=== PATIENT | male | born 1940 | race Caucasian/White ===

== ENCOUNTER 2021-12-25 14:45 | Outpatient (CLI) | payer MEDICARE, BC, SELFPAY | END 2021-12-25 14:46 | disposition home or self-care (01) | LOC: INJ CL 14:45 | PROVIDERS: PCP Family Medicine; Visit Provider Family Medicine | DX: M51.36 Other intervertebral disc degeneration, lumbar region; M54.16 Radiculopathy, lumbar region | CPT/HCPCS: 64483; J1100; Q9966 ==

== ENCOUNTER 2022-01-22 14:15 | Outpatient (RCR) | payer MEDICARE, BC, SELFPAY | END 2022-01-22 16:02 | disposition home or self-care (01) | PROVIDERS: PCP Family Medicine; Visit Provider Family Medicine | DX: M51.36 Other intervertebral disc degeneration, lumbar region (principal); Z51.89 Encounter for other specified aftercare | CPT/HCPCS: 97110; 97116; 97162; 97535 ==

== ENCOUNTER 2022-08-25 13:49 | Outpatient (CLI) | payer MEDICARE, BC, SELFPAY | END 2022-08-25 13:50 | disposition home or self-care (01) | LOC: AMB 08-26 13:19 | PROVIDERS: PCP Family Medicine; Visit Provider Family Medicine | DX: R41.82 Altered mental status, unspecified (principal) | CPT/HCPCS: A0425; A0429 ==

== ENCOUNTER 2022-08-25 14:10 | Inpatient (IN) | payer MEDICARE, BC, SELFPAY ==
[2022-08-25] VITALS (10 sets, daily range): BP systolic 143–181; BP diastolic 70–113; PULSE 50–92; RESP 16–20; TEMP 37.2–37.4; O2SAT 92–94; BMI 27.5; BMI 28.4
--- NOTE | 2022-08-25 14:22 | ED_ITS ---
HPI - Weakness General Time Seen by Provider: 14:23 Date Seen: 08/25/22 Chief complaint: Weakness Stated complaint: Ill Time Seen by Provider: 08/25/22 14:22 Source: patient, family, EMS and RN notes reviewed Mode of arrival: EMS Limitations: altered mental status (Sleepy and underlying dementia) History of Present Illness HPI Narrative: Patient is an 82-year-old male brought in by EMS from home where he is cared for by his . Patient has underlying dementia but has had a change in his status today. He ambulates with a cane or walker baseline, feels that he has been doing the walker more the last few days. He reportedly he did eat some yogurt and granola and couple water earlier. She was going to have him going to the kitchen in eat some toast and drink a cup of coffee, on the way there he plopped in this lower chair and did not make it into the kitchen. She went to get him the coffee there and he knocked it over. She noted he was seeming to have a lot of jerking movements in his arms. His daughter whom is present as well at this time notes that she has seen some of these movements before. The of noted no specific illness with him, daughter feels that he is less alert than he normally is. They feel he is resting comfortably, are not seen the jerking movements. When I was examining him, he had 1 myoclonic type jerk in his left forearm and this seems to be what is termite control representative of the movements seen. Patient was initially sleeping, does wake up. He does say hi to me. When ask if he has pain anywhere he states no. I specifically ask about things like headache, chest pain, back pain, breathing issues, abdominal pain, he declines all of this. He does baseline have dementia and is certainly falling asleep very easily, do question his ability to give me a true meaningful review of systems. They notes that he has been having some kidney issues with increased creatinine, his doctor has been following these labs every 3-4 months. Related Data Home Medications Medication Instructions Recorded Confirmed acetaminophen 500 mg capsule 500 mg PO Q6H PRN 08/20/22 08/20/22 donepezil 10 mg tablet 10 mg PO QDAY 08/20/22 08/20/22 gentamicin 0.3 % eye drops 1 drp ophthalmic (eye) Q4H 08/20/22 08/20/22 lisinopril 10 mg tablet 10 mg PO QDAY 08/20/22 08/20/22 melatonin 3 mg capsule 3 mg PO ONCE 08/20/22 08/20/22 memantine 10 mg tablet 10 mg PO QPM 08/20/22 08/20/22 potassium citrate 5 mEq (540 mg) 5 meq PO ONCE 08/20/22 08/20/22 tablet,extended release tamsulosin 0.4 mg capsule 0.4 mg PO QDAY 08/20/22 08/20/22 tumeric 100 mg-carl 150 mg-olive cap PO 08/20/22 08/20/22 50 mg-oreg 150 mg-caprylate capsule venlafaxine 37.5 mg 37.5 mg PO QDAY 08/20/22 08/20/22 capsule,extended release 24 hr Allergies Allergy/AdvReac Type Severity Reaction Status Date / Time No Known Drug Allergies Allergy Verified 08/25/22 14:23 Review of Systems Status of ROS: Reports: unobtainable due to medical condition PFSH PFS Social History Smoking Status: Former smoker How often do you have a drink containing alcohol: never AUDIT-C Alcohol total score: 0 Non-prescribed substance use: denies use Exam Const: Vital Signs, click to edit/add: Vital Signs - 24 hr 08/25/22 14:14 Temperature 99.3 F Pulse Rate [Pulse Oximeter] 50 L Respiratory Rate 18 Blood Pressure [Ri ght Upper Arm] 143/70 H Pulse Oximetry 93 Oxygen Delivery Me thod Room Air Documenting provider has reviewed patient's vital signs: yes Common normals: no apparent distress General appearance: comfortable, well kempt and frail appearing Nutritional appearance: thin Other: Wakes up briefly in is pleasant, is certainly arousable from his sleep. HENMT: Common normals: normocephalic, head/scalp atraumatic, hearing grossly normal bilaterally, external ears normal, external nose normal and nasal mucous membranes and turbinates normal Head and scalp: normocephalic and atraumatic Nose: external nose normal and nasal mucous membranes and turbinates normal External ear: external ears normal Other: Dry oral mucosa without any lesions or traumatic changes. Lips are not dry, looked normal. When he does speak to me, seems to have symmetrical facial function. Eye: Common normals: PERRL, EOMs intact bilaterally, conjunctivae normal and no scleral icterus Conjunctiva: conjunctiva(e) normal Pupil: PERRL Neck & C-Spine: Common normals: full ROM, no lymphadenopathy, supple, no meningeal signs, no JVD and thyroid normal Thyroid: thyroid normal Chest: Common normals: inspection of chest normal and palpation of chest normal Resp: Common normals: normal respiratory effort, no retractions, no use of accessory muscles and clear to auscultation bilaterally Auscultation: clear to auscultation bilaterally Cardio: Common normals: no JVD, regular rate, regular rhythm, S1 normal heart sound, S2 normal heart sound, no gallops, no clicks and no murmurs Rate: regular rate Rhythm: regular rhythm Heart sounds: S1 normal and S2 normal GI: Common normals: Normal to inspection, nondistended, normoactive bowel sounds present, soft to palpation, non-tender, no hepatosplenomegaly and no masses Palpation: soft and no hepatosplenomegaly Extremity: Other: Does have trace maybe 1+ pitting edema lower extremities, no overlying erythema or abnormal skin changes. On evaluation of his upper extremities, I do not get any cogwheeling or rigidity. He does seem to have symmetrical strength and will follow commands. When I lift his lower legs up, does not seem to have any pain and hold his leg in a upper position for few seconds before sending a back down. Neuro: Meningeal signs: no meningeal signs Psych: Appearance: well kempt Course Course Hospital Course: This is an 82-year-old male with underlying dementia which seems to have a change in his baseline mental status. He certainly does seem more sleepy, possible low-grade temperature of 99.3? F here. Infectious etiology would certainly be at the forefront of diagnostic possibilities. There is no known trauma and his does not feel he could never get himself up if he were to fall at home. We will do chest x-ray, head CT just to rule out any intracranial pathology as well as lung pathology on the chest x-ray. We will get a full complement of labs including blood cultures. We will be doing a 250 mL normal saline bolus, consider more fluids if we find infectious etiology. Reevaluation(s) Time of Reevaluation #1: 16:09 Reevaluation #1: Patient is providing small amount of urine at this time clean-catch. We will get that off for urinalysis. He is certainly more alert. Have reviewed the head CT with his , she is not aware that he has ever had a diagnosis of a subdural hematoma. She believes about 2 months ago he had an MRI of his head with his neurologist for his dementia. We will see if there is possibly anyway to do a comparison, have contacted Radiology. Have reviewed that his white count is elevated. Some of his labs are still pending. I still do wonder about infectious etiology. My recommendation is for observation in the hospital, see if we find any focus of infection, we can repeat a head CT and 6 hours. His does not believe that she would want him sent anywhere for evacuation of hematoma, any neuro surgery which I think is appropriate given his advanced dementia. She is wondering why x-rays have not been done to see why he can not walk. I have reviewed with her that this is likely more a function of being weak and probable infectious etiology. When I mobilize his lower extremities it does not seem to cause him any pain. I watch him bending his legs up and moving his legs with out any discomfort. I think it is reasonable to consider x-rays at some point if we can get more focused exam from him or get him to give us an isolated painful region. I have tried to stress to her that we often see people quit walking with advanced age in advanced medical processes when they have global weakness from an infectious etiology. Consultations Consultation #1: Have spoken with Dr. Pierce, he is aware the urinalysis is pending, discussed thoughts of repeating a head CT in 6 hours just to ensure no change. He will accept the patient. The C reactive protein did come back quite elevated at this time, urinalysis is just been collected. If that does not show any infectious etiology, he may have to consider CT imaging to look to see if there is anything possible in the chest or abdomen that we might be missing. Time: 16:12 Vital Signs Vital signs: Initial Vital Signs Temperature 99.3 F 08/25/22 14:14 Temperature Source Temporal Artery Scan 08/25/22 14:14 Pulse Rate 50 L 08/25/22 14:14 Respiratory Rate 18 08/25/22 14:14 Blood Pressure 143/70 H 08/25/22 14:14 Blood Pressure Mean 94 08/25/22 14:14 Blood Pressure Position Supine 08/25/22 14:14 Pulse Oximetry 93 08/25/22 14:14 Oxygen Delivery Method Room Air 08/25/22 14:14 Vital Signs Temperature 99.3 F 08/25/22 14:14 Pulse Rate 50 L 08/25/22 14:14 Respiratory Rate 18 08/25/22 14:14 Blood Pressure 143/70 H 08/25/22 14:14 Pulse Oximetry 93 08/25/22 14:14 Oxygen Delivery Method Room Air 08/25/22 14:14 Temperature 99.3 F 08/25/22 14:14 Pulse Rate 50 L 08/25/22 14:14 Respiratory Rate 18 08/25/22 14:14 Blood Pressure 143/70 H 08/25/22 14:14 Pulse Oximetry 93 08/25/22 14:14 Oxygen Delivery Method Room Air 08/25/22 14:14 MDM - Weakness Lab Data Attestation: I reviewed the patient's lab results. Labs: Lab Results 08/25/22 Range/Units 14:49 WBC 12.89 H (4.50-11.00) K/uL RBC 4.31 (4.30-5.90) m/uL Hgb 14.2 (13.5-17.5) gm/dL Hct 43.0 (37.0-53.0) % MCV 100 (80-100) fL MCH 33 (26-34) pg MCHC 33 (32-36) gm/dL RDW Coeff of [place] 12.5 (11.5-15.5) % Plt Count 197 (140-440) K/uL Neut % (Auto) 76.7 H (42.0-72.0) % Lymph % (Auto) 8.4 L (20-44) % [place] % (Auto) 13.6 H (0.0-11.0) % Eos % (Auto) 0.7 (0.0-7.0) % Baso % (Auto) 0.1 (0.0-3.0) % Neut # (Auto) 9.90 H (1.7-7.0) K/uL Lymph # (Auto) 1.10 (0.90-2.90) K/uL [place] # (Auto) 1.80 H (0.00-0.90) K/UL Eos # (Auto) 0.10 (0.00-0.50) K/uL Baso # (Auto) 0.00 (0.00-0.30) K/uL Sodium 138 (135-149) mmol/L Potassium 4.1 (3.6-5.1) mmol/L Chloride 105 (96-114) mmol/L Carbon Dioxide 24 (20-32) mmol/L BUN 18 (7-30) mg/dL Creatinine 1.2 (0.5-1.5) mg/dL Estimated Creat Clear 48.81 Estimated GFR 60 ml/min Glucose 120 H (60-115) mg/dL Lactate 1.3 (0.5-1.9) mmol/L Calcium 9.9 (8.4-10.6) mg/dL Total Bilirubin 0.6 (0.1-1.5) mg/dL AST 33 (12-35) U/L ALT 23 (4-50) U/L Alkaline Phosphatase 56 (40-150) U/L C-Reactive Protein 18.7 H (0.5-1.0) mg/dL NT-Pro-B Natriuret Pep 600 pg/mL Total Protein 7.5 (6.0-8.3) g/dL Albumin 4.3 (3.3-5.0) g/dL SARS-CoV-2 (PCR) Negative SARS-CoV-2 (Negative) POC Troponin I 0.01 (0.01-0.04) ng/ml Imaging Data CT scan - head: Attestation: I have reviewed the pertinent imaging results. Radiologist's impression: Patient: PA NICOLE Facility:?[facility] Patient ID:?[id number] Study:?CT Head W/O-08/25/2022 3:25:52 PM Ordering Physician:?Attila Moreno Final Report: Indication: Altered mental status, weakness Comparison: None available Technique: Multiple sequential axial images from the foramen magnum to the vertex were obtained without IV contrast. Findings: Probable tiny subdural hematoma, with a chronic appearance measuring 3 mm seen over the right frontal lobe on image 33, series 2. No significant mass effect or midline shift. Mild diffuse atrophy. Patchy periventricular and deep white matter areas of hypoattenuation, nonspecific the most likely small vessel ischemic change. Intracranial vascular calcifications. Basal cisterns are patent. No intraventricular or parenchymal hemorrhage. Visualized portions of the orbits, paranasal sinuses, and mastoid air cells are unremarkable. Impression: Probable tiny subdural hematoma with a more chronic appearance over the right frontal lobe. Please note that all CT scans at this facility use dose modulation, iterative reconstruction, and/or weight-based dosing when appropriate to reduce radiation dose to as low as reasonably achievable. Dictated by Daniel Justice MD @ 08/25/2022 3:44:27 PM (Electronic Signature) Chest x-ray: Attestation: I have reviewed the pertinent imaging results. Radiologist's impression: Patient: PA [facility] Facility:?[facility] Patient ID:?[id number] Site Patient ID:?[id number]. Site :?[id number] Study:?XRay Chest AP 1V-08/25/2022 3:26:43 PM Ordering Physician:?Attila Moreno Final Report: INDICATION: AMS TECHNIQUE: Single view chest. FINDINGS: The lungs are clear. The heart, mediastinum and pulmonary vessels are of normal size. There is no evidence of pleural disease. IMPRESSION: Negative chest. Dictated by Yu Suarez MD @ 08/25/2022 3:44:33 PM (Electronic Signature) ECG Data Attestation: I personally reviewed and interpreted this ECG as follows: (Bradycardic rhythm, 51 beats per minute. Right bundle branch block. Monitors calling unusual P-wave axis, possible ectopic atrial bradycardia. Note patient is maintaining good blood pressure.) ECG interpretation date: 08/25/22 ECG interpretation time: 15:48 Prior ECG tracings: not available for review Critical Care Time Critical Care Time Critical Care Time: No Discharge Plan Discharge Clinical Impression: Chronic subdural hematoma, Dementia, Weakness Patient Disposition: Admitted As Inpatient Condition: Unchanged
--- NOTE | 2022-08-25 14:32 | CRLHL7_ITS ---
For Patients: As a result of the Century Cures Act, medical imaging exams and procedure reports are released immediately into your electronic medical record. You may view this report before your referring provider. If you have questions, please contact your health care provider. INDICATION: AMS TECHNIQUE: Single view chest. FINDINGS: The lungs are clear. The heart, mediastinum and pulmonary vessels are of normal size. There is no evidence of pleural disease. IMPRESSION: Negative chest. Dictated by Yu Suarez MD @ 08/25/2022 3:44:33 PM (Electronically Signed)
--- NOTE | 2022-08-25 14:34 | CRLHL7_ITS ---
For Patients: As a result of the Cures Act, medical imaging exams and procedure reports are released immediately into your electronic medical record. You may view this report before your referring provider. If you have questions, please contact your health care provider. Indication: Altered mental status, weakness Comparison: None available Technique: Multiple sequential axial images from the foramen magnum to the vertex were obtained without IV contrast. Findings: Probable tiny subdural hematoma, with a chronic appearance measuring 3 mm seen over the right frontal lobe on image 33, series 2. No significant mass effect or midline shift. Mild diffuse atrophy. Patchy periventricular and deep white matter areas of hypoattenuation, nonspecific the most likely small vessel ischemic change. Intracranial vascular calcifications. Basal cisterns are patent. No intraventricular or parenchymal hemorrhage. Visualized portions of the orbits, paranasal sinuses, and mastoid air cells are unremarkable. Impression: Probable tiny subdural hematoma with a more chronic appearance over the right frontal lobe. Please note that all CT scans at this facility use dose modulation, iterative reconstruction, and/or weight-based dosing when appropriate to reduce radiation dose to as low as reasonably achievable. Dictated by Daniel Justice MD @ 08/25/2022 3:44:27 PM (Electronically Signed)
[2022-08-25 15:04] LABS: Lactate* 1.3 mmol/L (0.5-1.9)
[2022-08-25 15:05] LABS: Troponin, Point-of-Care* 0.01 ng/ml (0.01-0.04)
[2022-08-25 15:09] LABS: Basophils Percent Auto 0.1 % (0.0-3.0); Eosinophils Percent Auto 0.7 % (0.0-7.0); Hemoglobin* 14.2 gm/dL (13.5-17.5); Immature Granulocytes Pct Auto 0.5 %; Lymphocytes Percent Auto 8.4 % (20-44); Mean Corpuscular HGB Conc 33 gm/dL (32-36); Mean Corpuscular Hemoglobin 33 pg (26-34); Mean Corpuscular Volume 100 fL (80-100); Monocytes Percent Auto 13.6 % (0.0-11.0); Neutrophils Percent Auto 76.7 % (42.0-72.0); Platelet Count* 197 K/uL (140-440); RDW Coefficient of Variation % 12.5 % (11.5-15.5); Red Blood Count 4.31 m/uL (4.30-5.90); White Blood Count* 12.89 K/uL (4.50-11.00)
[2022-08-25 15:17] LABS: Slide Review Reflex No
[2022-08-25 15:41] LABS: NT Pro B Type NatriureticPept* 600 pg/mL
[2022-08-25 15:42] LABS: Albumin* 4.3 g/dL (3.3-5.0); Chloride* 105 mmol/L (96-114); Sodium* 138 mmol/L (135-149)
[2022-08-25 15:43] LABS: Potassium* 4.1 mmol/L (3.6-5.1)
[2022-08-25 15:45] LABS: Carbon Dioxide* 24 mmol/L (20-32); Creatinine* 1.2 mg/dL (0.5-1.5); Est. Creatinine Clearance* 48.81; Estimated Glomerular Filt Rate 60 ml/min
[2022-08-25 15:46] LABS: Alanine Aminotransferase* 23 U/L (4-50); Alkaline Phosphatase* 56 U/L (40-150); Aspartate Amino Transferase* 33 U/L (12-35); Bilirubin Total* 0.6 mg/dL (0.1-1.5); Blood Urea Nitrogen* 18 mg/dL (7-30); Calcium* 9.9 mg/dL (8.4-10.6); Glucose* 120 mg/dL (60-115); SARS PCR* Negative SARS-CoV-2 (Negative); Total Protein* 7.5 g/dL (6.0-8.3)
[2022-08-25 16:02] LABS: C Reactive Protein* 18.7 mg/dL (0.5-1.0)
[2022-08-25 16:16] LABS: Appearance Urine Clear (Clear); Bilirubin Urine 1+ (Negative); Blood Urine Trace-intact (Negative); Color Urine Dark yellow (Yellow); Glucose Urine Negative (Negative); Ketones Urine 1+ (Negative); Leukocyte Esterase Urine Trace (Negative); Nitrite Urine Negative (Negative); Protein Urine 2+ (Negative); Specific Gravity Urine 1.025 (1.000-1.030); Urobilinogen Urine 0.2 (0.2-1.0)
[2022-08-25 16:26] LABS: Bacteria Urine Moderate; Squamous Epithelial Cell Urine Few (None-Few)
--- NOTE | 2022-08-25 16:36 | P.IMHP_ITS ---
Hospitalist- H&P: HPI History of Present Illness Date Seen: 08/25/22 Chief complaint: Ill Narrative: Rene Perez is a 82 year old male with past medical history of alzheimer's dementia, HTN, BPH, Depression presenting for evaluation of generalized weakness. The patient unable to provide meaningful hx. Hx obtained from his (who is also a poor historian) and his daughter (who is WELDING MACHINE TENDER). He has had progressive general decline over the last two months. He lives with his . She is unsure if he has had any falls and has not complained of headaches. Per report he had a fall while walking to the kitchen, he slid fell to the floor. did not witness. He uses walker for ambulation. He has had progressive weakness and family notes intermittent upper extremity clonic movements/jerks. In the ED CT head showed Probable tiny subdural hematoma with a more chronic appearance over the right frontal lobe. WBC 12.8; UA positive for leukocyte esterase. In the Ed the patient had temp of 99.3. He was admitted for further evaluation CT HEAD Impression: Probable tiny subdural hematoma with a more chronic appearance over the right frontal lobe. cxr Negative chest. Review of Systems Status of ROS: Reports: unobtainable due to mental status PFSH PFS Social History What is your current living situation: I presently have a place to live Problems where you live: no known problems Problems where you live details: none In the past 12 months, utilities in danger of being shut off: no In the past 12 mos, have been you worried that your food would run out before you had money to buy more?: never true In the past 12 mos, the food you bought just didn't last and you didn't have m oney to buy more?: never true Smoking Status: Former smoker What tobacco products do you use: cigarettes Smoking quit date/years: >15 years ago Do you use any of these nicotine containing products: None Second hand tobacco smoke exposure: No How often do you have a drink containing alcohol: 2-4 times a month Alcohol type: wine Alcohol type details: glass of wine with dinner How many standard drinks containing alcohol do you have on a typical day: 1 or 2 AUDIT-C Alcohol total score: 2 Non-prescribed substance use: denies use Caffeine: Yes How often does anyone, including family, friends and others, physically hurt you : How often does anyone, including family, friends and others, insult or talk down to you: How often does anyone, including family, friends and others, threaten you with harm: How often does anyone, including family, friends and others, scream or curse at you: service: No Meds Home Medications and Allergies Home Medications Medication Instructions Recorded Confirmed Type acetaminophen 500 mg capsule 500 mg PO Q6H PRN 08/20/22 08/20/22 History donepezil 10 mg tablet 10 mg PO QDAY 08/20/22 08/20/22 History gentamicin 0.3 % eye drops 1 drp ophthalmic (eye) Q4H 08/20/22 08/20/22 History lisinopril 10 mg tablet 10 mg PO QDAY 08/20/22 08/20/22 History melatonin 3 mg capsule 3 mg PO ONCE 08/20/22 08/20/22 History memantine 10 mg tablet 10 mg PO QPM 08/20/22 08/20/22 History potassium citrate 5 mEq (540 mg) 5 meq PO ONCE 08/20/22 08/20/22 History tablet,extended release tamsulosin 0.4 mg capsule 0.4 mg PO QDAY 08/20/22 08/20/22 History tumeric 100 mg-carl 150 mg-olive cap PO 08/20/22 08/20/22 History 50 mg-oreg 150 mg-caprylate capsule venlafaxine 37.5 mg 37.5 mg PO QDAY 08/20/22 08/20/22 History capsule,extended release 24 hr Allergies Allergy/AdvReac Type Severity Reaction Status Date / Time No Known Drug Allergies Allergy Verified 08/25/22 14:23 Exam Narrative: Exam Narrative: Gen: no acute distress HEENT: NCAT EOMI mmm Neck: Supple CV: RRR normal s1 s2 Lungs: CTAB Abd: Soft,nt, nd Neuro: Alert, orientedXo; moves extremities; able to follow commands Psych: flat affect MSK: age appropriate muscle mass Skin; Warm, dry no rash on face Const: Vital Signs, click to edit/add: Vital Signs - 24 hr 08/25/22 14:14 08/25/22 15:13 08/25/22 15:32 Temperature 99.3 F Pulse Rate 52 L Pulse Rate [Pulse Oximeter] 50 L Respiratory Rate 18 Blood Pressure 158/77 H Blood Pressure [Ri ght Upper Arm] 143/70 H Pulse Oximetry 93 94 Oxygen Delivery Me thod Room Air 08/25/22 15:38 08/25/22 16:02 08/25/22 16:32 Temperature Pulse Rate 58 L Pulse Rate [Pulse Oximeter] Respiratory Rate Blood Pressure 181/113 H 160/86 H Blood Pressure [Ri ght Upper Arm] Pulse Oximetry 92 Oxygen Delivery Me thod Hospitalist - H&P: Result Labs Labs: Short CBC 08/25/22 Range/Units 14:49 WBC 12.89 H (4.50-11.00) K/uL Hgb 14.2 (13.5-17.5) gm/dL Hct 43.0 (37.0-53.0) % Plt Count 197 (140-440) K/uL BMP 08/25/22 14:49 Sodium 138 Potassium 4.1 Chloride 105 Carbon Dioxide 24 BUN 18 Creatinine 1.2 Glucose 120 H Calcium 9.9 Liver Function 08/25/22 Range/Units 14:49 Total Bilirubin 0.6 (0.1-1.5) mg/dL AST 33 (12-35) U/L ALT 23 (4-50) U/L Alkaline Phosphatase 56 (40-150) U/L Albumin 4.3 (3.3-5.0) g/dL Urine 08/25/22 Range/Units 16:05 Urine Color Dark yellow (Yellow) Urine Appearance Clear (Clear) Urine pH 6.0 (5.0-8.5) Ur Specific [place] 1.025 (1.000-1.030) Urine Protein 2+ A (Negative) Urine Glucose (UA) Negative (Negative) Assessment and Plan Assessment and plan (1) UTI (urinary tract infection): Status: Acute (2) Hypertension: Status: Acute (3) Chronic subdural hematoma: Status: Acute (4) Depression: Status: Acute (5) BPH (benign prostatic hyperplasia): Status: Acute (6) Weakness: Status: Acute (7) Dementia: Status: Acute Plan Assessment: Rene Perez is a 82 year old male with past medical history of alzheimer's dementia, HTN, BPH, Depression presenting for evaluation of generalized weakness. The patient unable to provide meaningful hx. Hx obtained from his (who is also a poor historian) and his daughter (who is WELDING MACHINE TENDER). He has had progressive general decline over the last two months. He lives with his . Per report he had a fall while walking to the kitchen, he slid fell to the floor. did not witness. He uses walker for ambulation. He has had progressive weakness and family notes intermittent upper extremity clonic movements/jerks. In the ED CT head showed Probable tiny subdural hematoma with a more chronic appearance over the right frontal lobe. WBC 12.8; UA positive for leukocyte esterase. In the Ed the patient had temp of 99.3. He was admitted for further evaluation 1. Generalized weakness likely secondary to UTI 2. Hx of Alzheimer's Dementia 3. Hx of HTN 4. Hx of BPH 5. Hx of Depression 6. Suspected tiny subdural hematoma presumed chronic Plan -admit to inpatient -start ceftriaxone -f/u Ucx -Pt, OT, SW consult -repeat CT head tonight -fall precautions Code Status-After lengthy discussion with , DNR/DNI for now DVT ppx-SCD Dispo-Anticipate he will need SNF
--- NOTE | 2022-08-25 16:44 | ED.NURSE ---
report given to marky tay, pt will transfer to room ccu2 via cart with belongings.
[2022-08-25 17:16] LABS: Procalcitonin* 0.09 ng/mL (<0.50)
[2022-08-25] MEDS: cefTRIAXone 1 GM in 0.9 % SODIUM CHLORIDE Mini-bag 100 ML IVPB (17:22)
[2022-08-25] MEDS: MEMANTINE HCL 10 MG TABLET PO (18:32)
[2022-08-25] MEDS: 0.9 % SODIUM CHLORIDE 250 ml IV (18:32)
--- NOTE | 2022-08-25 20:00 | CRLHL7_ITS ---
For Patients: As a result of the Century Cures Act, medical imaging exams and procedure reports are released immediately into your electronic medical record. You may view this report before your referring provider. If you have questions, please contact your health care provider. INDICATION: Altered mental status weakness. TECHNIQUE: CT head without contrast. COMPARISON: September 24, 2022. FINDINGS: CSF spaces: Mild diffuse parenchymal volume loss. Brain parenchyma and extra-axial spaces: Similar asymmetric prominent extra-axial space over the right frontal convexity. Mild chronic white matter ischemic disease. The power-white differentiation is normal. No sign of mass, hemorrhage, or midline shift. No extra-axial fluid collection. Skull base and calvarium: The visualized paranasal sinuses and mastoid air cells demonstrate no acute or significant findings. The visualized orbits are grossly unremarkable. No skull fractures. IMPRESSION: No significant interval change compared to prior CT. Please note that all CT scans at this facility use dose modulation, iterative reconstruction, and/or weight-based dosing when appropriate to reduce radiation dose to as low as reasonably achievable. Dictated by Reji Martínez MD @ 08/25/2022 9:22:58 PM (Electronically Signed)
[2022-08-25] MEDS: ACETAMINOPHEN 325 MG TABLET 650 MG PO (23:06)
[2022-08-25] MEDS: MELATONIN 3 MG TABLET PO (23:06)
[2022-08-25] MEDS: SODIUM CHLORIDE 0.9 % (FLUSH) 10 ML SYRINGE 5 ML IVF (23:06)
[2022-08-26] VITALS (7 sets, daily range): BP systolic 117–155; BP diastolic 65–81; PULSE 65–74; RESP 16–20; TEMP 36.7–37.1; O2SAT 92–95
--- NOTE | 2022-08-26 06:13 | PC.NURSE ---
Shift note: Pt is disoriented to his surroundings, however pleasant and cooperative. He is able to swallow pills with some coaching. He needs assistance with meals as pt unable to control his hands. Speech is mumbled, unable to keep conversation and/or answer questions. Pt ambulates with assists of 1-2, belt wand walker, requires frequent redirections. He is incontinent, no BM overnight.
[2022-08-26 06:43] LABS: Basophils Percent Auto 0.2 % (0.0-3.0); Eosinophils Percent Auto 0.9 % (0.0-7.0); Hematocrit 40.3 % (37.0-53.0); Hemoglobin* 13.2 gm/dL (13.5-17.5); Immature Granulocytes Pct Auto 0.4 %; Lymphocytes Percent Auto 11.6 % (20-44); Mean Corpuscular HGB Conc 33 gm/dL (32-36); Mean Corpuscular Hemoglobin 32 pg (26-34); Mean Corpuscular Volume 99 fL (80-100); Monocytes Percent Auto 15.8 % (0.0-11.0); Neutrophils Percent Auto 71.1 % (42.0-72.0); Platelet Count* 204 K/uL (140-440); RDW Coefficient of Variation % 12.3 % (11.5-15.5); Red Blood Count 4.07 m/uL (4.30-5.90)
[2022-08-26 06:49] LABS: Slide Review Reflex No
[2022-08-26 06:57] LABS: Chloride* 107 mmol/L (96-114); Potassium* 3.7 mmol/L (3.6-5.1); Sodium* 138 mmol/L (135-149)
[2022-08-26 07:00] LABS: Blood Urea Nitrogen* 17 mg/dL (7-30); Carbon Dioxide* 23 mmol/L (20-32); Creatinine* 1.2 mg/dL (0.5-1.5); Est. Creatinine Clearance* 48.81; Estimated Glomerular Filt Rate 60 ml/min
[2022-08-26 07:01] LABS: Calcium* 9.6 mg/dL (8.4-10.6); Glucose* 115 mg/dL (60-115)
[2022-08-26] MEDS: SODIUM CHLORIDE 0.9 % (FLUSH) 10 ML SYRINGE 5 ML IVF ×2 (09:18→21:51)
--- NOTE | 2022-08-26 10:55 | CRLHL7_ITS ---
For Patients: As a result of the Cures Act, medical imaging exams and procedure reports are released immediately into your electronic medical record. You may view this report before your referring provider. If you have questions, please contact your health care provider. INDICATION: expiratory wheeze in RUL TECHNIQUE: Chest 1 view COMPARISON: 08/25/2022 FINDINGS: Cardiovascular and mediastinum: Tortuosity of the descending thoracic aorta. Cardiac silhouette is upper limits normal. Lungs and pleural spaces: Mild areas of scarring noted. No sign of infiltrate or mass. No sign of pleural effusion. No pneumothorax. Bones and soft tissues: Degenerative changes at both shoulders. IMPRESSION: No acute findings. Dictated by Ibrahima Felix MD @ 08/26/2022 11:32:33 AM (Electronically Signed)
--- NOTE | 2022-08-26 13:54 | PC.SOCIAL ---
Discharge planning: Met with regarding d/c plan. is caregiver at home where they live in [facility]. shared that she plans to take him home at discharge but she will consider a short term rehab placement at the [facility] if needed. states she has considered hiring home management supervisor care to provide some assistance at home as she provides 24/7 care by herself. Provided with written resources on [place] [facility], home management supervisor care and assisted living memory care. Called [facility] and faxed information for evaluation for admit for short term rehab. textile worker to follow up as needed.
--- NOTE | 2022-08-26 14:37 | PC.NURSE ---
end of shift. pt has been pleasant. but sadly he has dementia. he is alert to self. he does listen to staff directions and he is cooperative. he is eating and drinking. he is incontinent of urine, but he is content of BM. he is able to feed him self, his is here and she is very loving and caring. Speech is mumbled, hard for him to find words at times. he does not like loud voices. . Pt ambulates with assists of 1, with a gait belt wand walker. SL is patent. he is a fall risk and alarms are on.
--- NOTE | 2022-08-26 15:40 | PM.IMPN1 ---
Progress Note: A&P Assessment and plan (1) UTI (urinary tract infection): Problem details: Continue ceftriaxone. Await urine culture. Status: Acute (2) Metabolic encephalopathy: Problem details: No further workup. Status: Acute (3) Dementia: Status: Chronic (4) Weakness: Problem details: PT and OT as able, suspect patient will need fdc facility for rehab Status: Acute (5) BPH (benign prostatic hyperplasia): Problem details: Continue home meds. Status: Chronic (6) Hypertension: Problem details: Continue home meds Status: Chronic (7) Chronic subdural hematoma: Problem details: Repeat CT head yesterday was stable. No further w/u or treatment needed. Avoid anticoagulation. Status: Acute Subjective Time Seen by Provider: 10:46 Date Seen: 08/26/22 Interval history: Karlo is sleepy today. His is in the room and tells me he is better at times, and then gets sleepy again. Exam Narrative: Exam Narrative: General: No acute distress. Sleepy, arousable, mostly keeps eyes closed, oriented to self. No pallor. No jaundice. Oropharynx: Clear. Mucous membranes moist. Cardiovascular: Regular rate and rhythm. No murmurs, gallops, or rubs. Respiratory: Expiratory wheeze in the right upper lung field, no crackles. Abdomen: Bowel sounds present. Soft, nondistended, nontender. Extremities: 1+ bilateral pretibial edema. Const: Vital Signs, click to edit/add: Vital Signs - 24 hr 08/25/22 16:02 08/25/22 16:32 08/25/22 17:00 Temperature 98.9 F Pulse Rate [Pulse Oximeter] 92 Respiratory Rate 16 Blood Pressure 181/113 H 160/86 H Blood Pressure [Ri ght Arm] 157/80 H Pulse Oximetry 92 Oxygen Delivery Me thod Room Air 08/25/22 17:01 08/25/22 19:00 08/25/22 23:00 Temperature 99.1 F Pulse Rate [Pulse Oximeter] 77 77 Respiratory Rate 20 20 Blood Pressure Blood Pressure [Ri ght Arm] 149/80 H Pulse Oximetry 92 94 Oxygen Delivery Me thod Room Air 08/25/22 23:00 08/26/22 03:00 08/26/22 08:37 Temperature 99.3 F 98.4 F 98.1 F Pulse Rate [Pulse Oximeter] 78 74 72 Respiratory Rate 20 18 18 Blood Pressure Blood Pressure [Ri ght Arm] 154/79 H 128/69 Pulse Oximetry 94 95 94 Oxygen Delivery Me thod Room Air Room Air Room Air 08/26/22 08:38 08/26/22 11:00 Temperature 98.2 F Pulse Rate [Pulse Oximeter] 72 70 Respiratory Rate 18 18 Blood Pressure Blood Pressure [[facility] Arm] 117/65 Pulse Oximetry 92 Oxygen Delivery Mn thod Room Air Labs Labs: Laboratory Results - last 24 hr 08/25/22 08/25/22 08/25/22 14:49 16:05 16:39 WBC RBC Hgb Hct MCV MCH MCHC RDW Coeff of Moira Plt Count Neut % (Auto) Lymph % (Auto) [place] % (Auto) Eos % (Auto) Baso % (Auto) Neut # (Auto) Lymph # (Auto) [place] # (Auto) Eos # (Auto) Baso # (Auto) Sodium 138 Potassium 4.1 Chloride 105 Carbon Dioxide 24 BUN 18 Creatinine 1.2 Estimated Creat Clear 48.81 Estimated GFR 60 Glucose 120 H Calcium 9.9 Total Bilirubin 0.6 AST 33 ALT 23 Alkaline Phosphatase 56 C-Reactive Protein 18.7 H NT-Pro-B Natriuret Pep 600 Total Protein 7.5 Albumin 4.3 Procalcitonin 0.09 Urine Color Dark yellow Urine Appearance Clear Urine pH 6.0 Ur Specific Nursery 1.025 Urine Protein 2+ A Urine Glucose (UA) Negative Urine Ketones 1+ A Urine Blood Trace-intact A Urine Nitrite Negative Urine Bilirubin 1+ A Urine Urobilinogen 0.2 Ur Leukocyte Esterase Trace A Urine RBC 2-5 A Urine WBC 10-25 A Ur Squamous Epith Cells Few Urine Bacteria Moderate A SARS-CoV-2 (PCR) Negative SARS-CoV-2 Lab Acknowledgement Test Added 08/26/22 05:57 WBC 11.30 H RBC 4.07 L Hgb 13.2 L Hct 40.3 MCV 99 MCH 32 MCHC 33 RDW Coeff of Moira 12.3 Plt Count 204 Neut % (Auto) 71.1 Lymph % (Auto) 11.6 L [place] % (Auto) 15.8 H Eos % (Auto) 0.9 Baso % (Auto) 0.2 Neut # (Auto) 8.00 H Lymph # (Auto) 1.30 [place] # (Auto) 1.80 H Eos # (Auto) 0.10 Baso # (Auto) 0.00 Sodium 138 Potassium 3.7 Chloride 107 Carbon Dioxide 23 BUN 17 Creatinine 1.2 Estimated Creat Clear 48.81 Estimated GFR 60 Glucose 115 Calcium 9.6 Total Bilirubin AST ALT Alkaline Phosphatase C-Reactive Protein NT-Pro-B Natriuret Pep Total Protein Albumin Procalcitonin Urine Color Urine Appearance Urine pH Ur Specific Nursery Urine Protein Urine Glucose (UA) Urine Ketones Urine Blood Urine Nitrite Urine Bilirubin Urine Urobilinogen Ur Leukocyte Esterase Urine RBC Urine WBC Ur Squamous Epith Cells Urine Bacteria SARS-CoV-2 (PCR) Lab Acknowledgement Ordering Physician: Rachael Reyes M.D. Date of Service: 08/26/22 Procedure(s): XR chest 1V portable Accession Number(s): [id number] cc: Rachael Reyes M.D.; Blas Mckenna D.O.~ For Patients: As a result of the Cures Act, medical imaging exams and procedure reports are released immediately into your electronic medical record. You may view this report before your referring provider. If you have questions, please contact your health care provider. INDICATION: expiratory wheeze in RUL TECHNIQUE: Chest 1 view COMPARISON: 08/25/2022 FINDINGS: Cardiovascular and mediastinum: Tortuosity of the descending thoracic aorta. Cardiac silhouette is upper limits normal. Lungs and pleural spaces: Mild areas of scarring noted. No sign of infiltrate or mass. No sign of pleural effusion. No pneumothorax. Bones and soft tissues: Degenerative changes at both shoulders. IMPRESSION: No acute findings. Dictated by Ibrahima Felix MD @ 08/26/2022 11:32:33 AM (Electronically Signed)
[2022-08-26] MEDS: cefTRIAXone 1 GM in 0.9 % SODIUM CHLORIDE Mini-bag 100 ML IVPB (17:34)
[2022-08-26] MEDS: ACETAMINOPHEN 325 MG TABLET 650 MG PO (20:08)
[2022-08-26] MEDS: TAMSULOSIN HCL 0.4 MG CAPSULE PO (20:09)
[2022-08-26] MEDS: VENLAFAXINE HCL ER 37.5 MG CAPSULE PO (21:43)
[2022-08-26] MEDS: SENNOSIDES 1 TAB TABLET PO (21:43)
[2022-08-26] MEDS: oxyBUTYnin chloride 5 MG TABLET 2.5 MG PO (21:44)
[2022-08-26] MEDS: MEMANTINE HCL 10 MG TABLET PO (21:46)
[2022-08-26] MEDS: DONEPEZIL 10 MG TABLET PO (21:50)
--- NOTE | 2022-08-26 22:34 | PC.NURSE ---
End of shift nursing note, care provided from [id number]: Pt alert to self only, can state full name and to automatic typewriter inspector. Amb in hallway x2 this evening w/ walker, gaitbelt and Ax1. at bedside, helpful in patient cares and pt reorientation PRN. Pt took scheduled meds whole with water, one at a time, took meds on pt's normal home routine time. Pt tolerated dinner, drinking PO fluids. Received scheduled IV abx to patent IV, flushed again before bed, saline locked. PRN Tylenol for reported chronic aches and pains. Pt pleasant. sleeping at bedside again this evening. x1 BM this afternoon, brief changed for incontinent urine PRN. Vitals stable, on RA. Call light within reach and bed alarm on for safety promotion.
[2022-08-27 02:32] VITALS: BP 146/81; PULSE 77; RESP 18; TEMP 37.1; O2SAT 95
[2022-08-27] MEDS: ACETAMINOPHEN 325 MG TABLET 650 MG PO (02:40)
[2022-08-27] MEDS: MELATONIN 3 MG TABLET PO (04:27)
--- NOTE | 2022-08-27 06:09 | PC.NURSE ---
End of shift note from?[id number]. Pt alert to self, has trouble w/ word finding.?Cooperative and follows direction. VSS. A1 w/ walker and gait belt. Inc of urine, brief changed PRN. PRN Tylenol given for reported back pain, pt appears to be resting comfortably after administration. Pt setting off bed alarm more frequently as the night went on, PRN melatonin given per family request.? sleeping at bedside.
[2022-08-27 07:00] VITALS: BP 141/72; PULSE 70; RESP 18; TEMP 36.9; O2SAT 93
[2022-08-27] MEDS: MULTIVITAMIN/MINERALS 1 TABLET 1 TAB PO (09:52)
[2022-08-27] MEDS: oxyBUTYnin chloride 5 MG TABLET 2.5 MG PO (09:53)
[2022-08-27] MEDS: SODIUM CHLORIDE 0.9 % (FLUSH) 10 ML SYRINGE 5 ML IVF (09:53)
[2022-08-27] MEDS: VENLAFAXINE HCL ER 37.5 MG CAPSULE PO (09:54)
[2022-08-27] MEDS: TRAMADOL HCL 50 MG TABLET PO (10:35)
--- NOTE | 2022-08-27 10:57 | P.DS_ITS ---
DS: Providers Provider Date Seen: 08/27/22 Date of admission: 08/25/22 16:56 Primary care physician: Mr. Dr. Hoover Admitting Clinician: Waldo Pierce MD Consults: 08/25/22 16:56 Consult to Physical Therapy [CONS] Routine Comment: Reason(s) for PT Consult:: Balance Assessment Any Restrictions?:: No Restrictions Consult to Glue Machine Operator [CONS] Routine Comment: Reason for Consult:: Discharge Planning Needs 08/25/22 16:58 Consult to Occupational Therapy [CONS] Routine Comment: Reason(s) for OT Consult:: Evaluate and Treat Any Restrictions?:: No Restrictions 08/27/22 10:53 Consult to Occupational Therapy [CONS] Routine Comment: Reason(s) for OT Consult:: ADLs Prior to Discharge Any Restrictions?:: No Restrictions Comment: Shower Attending Physician on discharge: Joselyn Garcia MD [facility] Date of Discharge: 08/27/22 DS: Diagnosis Discharge Diagnosis (1) UTI (urinary tract infection): Status: Acute Problem details: While his culture grew a nonspecific Gram-positive lin, the clinical picture is still consistent with acute cystitis. Will move up his dose of ceftriaxone to noon so he can discharge this afternoon. I will send him on Ceftin 300 mg b.i.d. for 5 days. Give him 1 week of total antibiotic coverage. (2) Metabolic encephalopathy: Status: Acute Problem details: Much improved. He was answering questions today eating his full breakfast tray. His feels like he is back to baseline. (3) Weakness: Status: Acute Problem details: Much improved. I would like OT to walk with him and have him shower before discharge to assure he steadiness to go straight home versus rehab. (4) Dementia: Status: Chronic Problem details: No changes in medications I did recommend that Rachael pursue a bedalarm mat and shower stool/commode for east of use. (5) Hypertension: Status: Chronic Problem details: No changes in medication (6) BPH (benign prostatic hyperplasia): Status: Chronic Problem details: No changes in medication (7) Depression: Status: Acute Problem details: No changes in medication (8) Chronic subdural hematoma: Status: Acute Problem details: CT stable. No further w/u or treatment needed. Avoid anticoagulation. DS: Summary Hospital Course Hospital Course: HOSPITALIST DISCHARGE SUMMARY ATTENDING PHYSICIAN: Joselyn Garcia MD FINAL DIAGNOSIS: Presumed UTI, negative culture but clinically consistent Dementia, moderate Alzheimer's type Weakness and encephalopathy, resolved HOSPITAL FOLLOWUP ISSUES: 1. Return to PCP for further management of chronic issues. 2. No referrals REFERRALS WHILE ADMITTED: Social work and OT REFERRALS AFTER DISCHARGE: None BRIEF HOSPITAL COURSE: Karlo is an 82-year-old male who lives with his . She manages his moderate dementia Alzheimer's subtype. She noted in the 1-2 days prior to admission increasing weakness, incontinence, confusion, tremor. He stopped eating. She called EMS on the day of admission and his initial workup in the ER was notable for a urine that had trace leukocyte esterase, ketones, 10-25 white blood cells and moderate bacteria. He had no squamous epithelial cells. Ultimately his culture grew greater than 100,000 mixed Gram-positive lin. However given his leukocytosis, clinical acute change, elevated inflammatory markers and paucity of other findings we feel this was still consistent with an acute cystitis. His symptoms resolved rapidly. He was treated with IV ceftriaxone x3 doses. On the day of discharge he was feeding himself, responding to questions and had walked outside his hospital room and down to the 1st sub station. He also showered without syncope or weakness. I had a long discussion with the @ his bedside about options and she felt strongly about taking him home and saying that he would continue to convalesce more rapidly in his own home environment. I concurred. SUBSTANTIVE NOTATIONS ON IMAGING, LAB, MICROBIOLOGY/PATHOLOGY STUDIES: mild leukocytosis, downtrending UA as described above neg CXR DISCHARGE MEDICATIONS: See Reconciled list - SIGNIFICANT CHANGES: no changes; adding ceftin 300mg BID for 5 days, 10 doses REVIEW OF SYSTEMS No new chest pain or dyspnea Pain controlled No voiding difficulties Tolerating diet challenge PHYSICAL EXAM: CONSTITUTIONAL: flat affect. doesn't engage in conversation but responds to q uestions. VITAL SIGNS: see record. HEENT: Normocephalic, atraumatic. PERRL, EOMI, conjunctivae pink, no scleral icterus. Ears and nose externally normal. Pharynx normal. NECK: No JVD. No carotid bruit, no thyromegaly, no adenopathy. CHEST: Clear to auscultation bilaterally. HEART: S1 and S2 normal. Edema minimal ABDOMEN: Soft, nontender. Normal bowel sounds. MUSCULOSKELETAL: No gross joint deformity or swelling. NEURO: Cranial nerves intact. Grossly intact. No asymmetric findings. SKIN: No rashes, petechiae, concerning changes PSYCHIATRIC: Mood euthymic. DISPOSITION: Home with Time spent on discharge 37 minutes. Status at Discharge Functional status at discharge: uses cane/walker Overall status at discharge: patient is progressing back to baseline Time Spent with Patient Time attestation: Total time spent providing and/or coordinating discharge services: Time spent: Greater than 30 minutes Exam Const: Vital Signs, click to edit/add: Vital Signs - 24 hr 08/26/22 11:00 08/26/22 15:50 08/26/22 15:50 Temperature 98.2 F 98.2 F Pulse Rate [Pulse Oximeter] 70 65 65 Respiratory Rate 18 18 18 Blood Pressure [Le ft Arm] 124/72 Blood Pressure [Ri ght Arm] 117/65 Pulse Oximetry 92 94 Oxygen Delivery Me thod Room Air Room Air 08/26/22 19:25 08/26/22 23:45 08/27/22 02:32 Temperature 98.7 F 98.8 F 98.7 F Pulse Rate [Pulse Oximeter] 70 71 77 Respiratory Rate 16 20 18 Blood Pressure [Le ft Arm] 155/81 H 133/66 146/81 H Blood Pressure [Ri ght Arm] Pulse Oximetry 92 92 95 Oxygen Delivery Me thod Room Air Room Air Room Air DS: Data Data Completed and Pending Labs on day of discharge: Preliminary micro results at discharge 08/25/22 15:35 Blood Culture - Preliminary Blood NO GROWTH AFTER 24 HOURS 08/25/22 14:49 Blood Culture - Preliminary Blood NO GROWTH AFTER 24 HOURS 08/25/22 Unknown Urine Culture - Preliminary Urine,Clean Catch > 100,000 COL/ML MIXED GRAM POSITIVE LIN ISOLATED NO FURTHER WORKUP Discharge Plan Discharge Disposition: Home w/ Parent or Adult Date of Admission: 08/25/22 16:56 Attending Provider on Discharge: Joselyn Garcia Primary Care Provider: Blas Mckenna Condition: Improved Anticipated Discharge Date/Time: 08/27/22 10:47 Discharge Medications: New cefdinir 300 mg capsule 300 mg PO BID Qty: 10 0RF Continued tamsulosin 0.4 mg capsule 0.4 mg PO DAILY@1300 memantine 10 mg tablet 10 mg PO BID venlafaxine 37.5 mg capsule,extended release 24hr 37.5 mg PO DAILY donepezil 10 mg tablet 10 mg PO HS acetaminophen 500 mg capsule 1,000 mg PO TID melatonin 5 mg tablet 5 mg PO QHS potassium citrate 99 mg capsule 99 mg PO BID amlodipine 2.5 mg tablet 2.5 mg PO DAILY oxybutynin chloride 5 mg tablet 2.5 mg PO BID tramadol 50 mg tablet 25 - 50 mg PO 3XD PRN Fish Oil 1,600-500-800 mg/5 mL liquid 5 ml PO DAILY multivitamin [Daily Multi-Vitamin] Tablet 1 tab PO DAILY sennosides [Patti-jose] 8.6 mg tablet 8.6 mg PO QHS cholecalciferol (vitamin D3) 50 mcg (2,000 unit) capsule 50 mcg PO DAILY Methylcobalamin 1,000 mcg 1,000 mcg PO DAILY grape seed extract 50 mg capsule 50 mg PO DAILY Rx Instructions: give with food (meal/snack) Patient Education: Cefdinir (By mouth) Activity Level: Activity as Tolerated Discharge Diet: Regular Follow Up Appointments: RIMMA KINCAID DO [Referring] - 09/10/22 Forms: [facility] Info Instructions
--- NOTE | 2022-08-27 11:28 | PC.SOCIAL ---
Pt. will discharge home today with spouse providing 07/10 care.
[2022-08-27] MEDS: cefTRIAXone 1 GM in 0.9 % SODIUM CHLORIDE Mini-bag 100 ML IVPB (13:48)
[2022-08-27 15:00] VITALS: BP 116/70; PULSE 55; RESP 18; TEMP 36.8
--- NOTE | 2022-08-27 16:32 | PC.NURSE ---
Nursing Care Hours: [id number] Pt this shift calm and cooperative with cares. Alert to self. Up to bathroom with assist x1, incontinent of bladder. Passing gas, no BM. BS hypoactive. Absent lung sound R base. No cough. Afebrile. VSS. c/o pain. When asked to point to where pain is, pt pointed to groin and low abdomen. Eating and drinking sufficiently. Discharged home with . All questions and concerns addressed. IV dc'd. Wheeled out to vehicle in stable condition.
== END 2022-08-27 15:45 | disposition home or self-care (01) | DRG 689 ==
LOC: ED 16:21 → MEDSURG 16:48
PROVIDERS: Admitting Provider Hospitalist; Emergency Provider Family Medicine; PCP Family Medicine; Visit Provider Hospitalist
DX: N30.00 Acute cystitis without hematuria (principal); G93.41 Metabolic encephalopathy; I62.03 Nontraumatic chronic subdural hemorrhage; B96.89 Other specified bacterial agents as the cause of diseases classified elsewhere; R53.1 Weakness; I10 Essential (primary) hypertension; G30.9 Alzheimer's disease, unspecified; F02.80 Dementia in other diseases classified elsewhere, unspecified severity, without behavioral disturbance, psychotic disturbance, mood disturbance, and anxiety; N40.0 Benign prostatic hyperplasia without lower urinary tract symptoms; F32.A Depression, unspecified
CPT/HCPCS: 36415; 70450; 71045; 80048; 80053; 81001; 83605; 83880; 84145; 84484; 85025; 86140; 87040; 87086; 87635; 93005; 94761; 97116; 97162; 97165; 97535; 99285; A9153; A9270; J0696; J7050

== ENCOUNTER 2022-09-06 12:43 | Emergency (ER) | payer MEDICARE, BC, SELFPAY ==
[2022-09-06 12:52] VITALS: BP 136/82; PULSE 62; RESP 20; TEMP 36.1; O2SAT 95; BMI 27.5
--- NOTE | 2022-09-06 13:41 | ED.GENADULT ---
HPI - General Adult General Chief complaint: Weakness Stated complaint: Previously in for UTI, it came back Time Seen by Provider: 09/06/22 13:13 History of Present Illness HPI narrative: 82-year-old man presenting to the emergency department accompanied by his spouse who does most of the talking. Has a history of a dementia, Alzheimer's. Hospitalized around 12 days ago for 2 days treated for urinary tract infection. Urine culture shows mixed Gram-positive organism from . Symptoms at that time included more profound weakness and confusion. Over the last couple of days started to become confused again more weak. Has not been having trouble voiding although when I enter the room they had just finished an effort avoiding which was unsuccessful. No fever. No vomiting. No complaint of diarrhea constipation. Reviewing records shows that at that time of hospitalization white count was mildly elevated; chemistries were normal. Spouse thinks that he was inadequately treated; not given a long enough course of antibiotics. Related Data Home Medications Medication Instructions Recorded Confirmed acetaminophen 500 mg capsule 1,000 mg PO TID 08/20/22 09/06/22 donepezil 10 mg tablet 10 mg PO HS 08/20/22 09/06/22 memantine 10 mg tablet 10 mg PO BID 08/20/22 09/06/22 tamsulosin 0.4 mg capsule 0.4 mg PO DAILY@1300 08/20/22 09/06/22 venlafaxine 37.5 mg 37.5 mg PO DAILY 08/20/22 09/06/22 capsule,extended release 24 hr Methylcobalamin 1,000 mcg PO DAILY 08/26/22 09/06/22 amlodipine 2.5 mg tablet 2.5 mg PO DAILY 08/26/22 09/06/22 cholecalciferol (vitamin D3) 50 50 mcg PO DAILY 08/26/22 09/06/22 mcg (2,000 unit) capsule grape seed extract 50 mg capsule 50 mg PO DAILY 08/26/22 09/06/22 melatonin 5 mg tablet 5 mg PO QHS 08/26/22 09/06/22 multivitamin (Daily Multi-Vitamin 1 tab PO DAILY 08/26/22 09/06/22 tablet) omega 9-dir-cal-fish oil 1,600 5 ml PO DAILY 08/26/22 09/06/22 mg-500 mg-800 mg/5 mL oral liquid (Fish Oil) oxybutynin chloride 5 mg tablet 2.5 mg PO BID 08/26/22 09/06/22 potassium citrate 99 mg capsule 99 mg PO BID 08/26/22 09/06/22 sennosides 8.6 mg tablet (Patti-jose) 8.6 mg PO QHS 08/26/22 09/06/22 tramadol 50 mg tablet 25 - 50 mg PO 3XD PRN 08/26/22 09/06/22 Allergies Allergy/AdvReac Type Severity Reaction Status Date / Time No Known Drug Allergies Allergy Verified 08/25/22 14:23 Review of Systems Status of ROS: Reports: 6 or more systems reviewed and unremarkable except as noted in History and below PFSH PFS Social History What is your current living situation: I presently have a place to live Problems where you live: no known problems Problems where you live details: none In the past 12 months, utilities in danger of being shut off: no In the past 12 mos, have been you worried that your food would run out before you had money to buy more?: never true In the past 12 mos, the food you bought just didn't last and you didn't have money to buy more?: never true Smoking Status: Former smoker What tobacco products do you use: cigarettes Smoking quit date/years: >15 years ago Do you use any of these nicotine containing products: None Second hand tobacco smoke exposure: No How often do you have a drink containing alcohol: 2-4 times a month Alcohol type: wine Alcohol type details: glass of wine with dinner How many standard drinks containing alcohol do you have on a typical day: 1 or 2 AUDIT-C Alcohol total score: 2 Non-prescribed substance use: denies use Caffeine: Yes How often does anyone, including family, friends and others, physically hurt you: How often does anyone, including family, friends and others, insult or talk down to you: How often does anyone, including family, friends and others, threaten you with harm: How often does anyone, including family, friends and others, scream or curse at you: service: No Exam Narrative: Exam Narrative: I enter the room they have been attempting to produce urine sample. A pants initially down around his ankles. His transitioning unsteadily. Flat affect. Hard of hearing are rather confused. Does acknowledge some pain in his back which apparently is chronic. Is not really reproducible. Is breathing easily. Lungs appear to be clear. Heart in a regular rate and rhythm. Abdomen is protuberant soft and nontender. Wearing attends. Lower extremities with 1+ pitting edema. Const: Vital Signs, click to edit/add: Vital Signs - 24 hr 09/06/22 12:52 09/06/22 14:48 09/06/22 14:51 Temperature 96.9 F L 97.6 F Pulse Rate 48 L Pulse Rate [Pulse Oximeter] 62 47 L Respiratory Rate 20 18 Blood Pressure [Ri ght Upper Arm] 136/82 130/88 Pulse Oximetry 95 92 96 Oxygen Delivery Me thod Room Air Room Air Documenting provider has reviewed patient's vital signs: yes Course Vital Signs Vital signs: Initial Vital Signs Temperature 96.9 F L 09/06/22 12:52 Temperature Source Temporal Artery Scan 09/06/22 12:52 Pulse Rate 62 09/06/22 12:52 Respiratory Rate 20 09/06/22 12:52 Blood Pressure 136/82 09/06/22 12:52 Blood Pressure Mean 100 09/06/22 12:52 Blood Pressure Position Sitting 09/06/22 12:52 Pulse Oximetry 95 09/06/22 12:52 Oxygen Delivery Method Room Air 09/06/22 12:52 Vital Signs Temperature 96.9 F L 09/06/22 12:52 Pulse Rate 62 09/06/22 12:52 Respiratory Rate 20 09/06/22 12:52 Blood Pressure 136/82 09/06/22 12:52 Pulse Oximetry 95 09/06/22 12:52 Oxygen Delivery Method Room Air 09/06/22 12:52 Temperature 97.6 F 09/06/22 14:51 Pulse Rate 47 L 09/06/22 14:51 Respiratory Rate 18 09/06/22 14:51 Blood Pressure 130/88 09/06/22 14:51 Pulse Oximetry 96 09/06/22 14:51 Oxygen Delivery Method Room Air 09/06/22 14:51 Medical Decision Making MDM Narrative Medical decision making narrative: I would at this point consider bladder scan and check urinalysis. It was worse with last presentation but with with maintained chemistries; I think less important to do serum laboratory evaluation. Benign belly. Urinalysis ultimately obtained and is without evidence of infection. No significant retention. It has been very busy emergency department and a long day for them. Ultimately spouse prefers to discharge to close monitoring and follow-up outpatient for further evaluation. He can certainly return as needed Was noted to have slower heart rate at 1 point during time in emergency department. EKG bradycardic but otherwise unremarkable with maintain pressures. Was similarly bradycardic about 2 weeks ago on review of record. See patient discharge plan Medical Records Medical records reviewed: Yes I reviewed the patient's medical records Lab Data Lab results reviewed: Yes I reviewed the patient's lab results Labs: Lab Results 09/06/22 Range/Units 14:10 Urine Color Yellow (Yellow) Urine Appearance Clear (Clear) Urine pH 6.5 (5.0-8.5) Ur Specific [place] 1.020 (1.000-1.030) Urine Protein Negative (Negative) Urine Glucose (UA) Negative (Negative) Urine Ketones Negative (Negative) Urine Blood Trace-intact A (Negative) Urine Nitrite Negative (Negative) Urine Bilirubin Negative (Negative) Urine Urobilinogen 0.2 (0.2-1.0) Ur Leukocyte Esterase Negative (Negative) Urine RBC 0-2 (0-2) Urine WBC 0-2 (0-5) Ur Squamous Epith Cells None (None-Few) Urine Bacteria None (None) ECG Data Attestation: I personally reviewed and interpreted this ECG as follows: (Sinus bradycardia, first-degree AV block, right bundle branch block rate of 48. Similar to 08/25/2022) Discharge Plan Discharge Clinical Impression: Weakness Patient Disposition: Home, Self-Care Condition: Stable Additional Instructions: Thankfully it does not appear like you have a urinary tract infection here today. I was reassured by your chemistries on review of record when you were last here. It is important to stay well hydrated. Pushing fluids may make a difference in energy level. We discussed further evaluation here today with lab work; I understand that you would prefer to return home to watchful waiting returning if necessary. While slower rate, the EKG looked otherwise reassuring. Continue to take care in transitions; moving to standing for example. Prescriptions: No Action tamsulosin 0.4 mg capsule 0.4 mg PO DAILY@1300 memantine 10 mg tablet 10 mg PO BID venlafaxine 37.5 mg capsule,extended release 24hr 37.5 mg PO DAILY donepezil 10 mg tablet 10 mg PO HS acetaminophen 500 mg capsule 1,000 mg PO TID melatonin 5 mg tablet 5 mg PO QHS potassium citrate 99 mg capsule 99 mg PO BID amlodipine 2.5 mg tablet 2.5 mg PO DAILY oxybutynin chloride 5 mg tablet 2.5 mg PO BID tramadol 50 mg tablet 25 - 50 mg PO 3XD PRN Fish Oil 1,600-500-800 mg/5 mL liquid 5 ml PO DAILY multivitamin [Daily Multi-Vitamin] Tablet 1 tab PO DAILY sennosides [Patti-jose] 8.6 mg tablet 8.6 mg PO QHS cholecalciferol (vitamin D3) 50 mcg (2,000 unit) capsule 50 mcg PO DAILY Methylcobalamin 1,000 mcg 1,000 mcg PO DAILY grape seed extract 50 mg capsule 50 mg PO DAILY Rx Instructions: give with food (meal/snack) Follow Up/Referrals: Blas Mckenna DO [Primary Care Provider] - Stand Alone Forms: [facility] Info Instructions
[2022-09-06 14:29] LABS: Appearance Urine Clear (Clear); Bilirubin Urine Negative (Negative); Blood Urine Trace-intact (Negative); Color Urine Yellow (Yellow); Glucose Urine Negative (Negative); Ketones Urine Negative (Negative); Leukocyte Esterase Urine Negative (Negative); Nitrite Urine Negative (Negative); Protein Urine Negative (Negative); Urobilinogen Urine 0.2 (0.2-1.0); pH Urine 6.5 (5.0-8.5)
[2022-09-06 14:46] LABS: RBC Urine 0-2 (0-2); WBC Urine 0-2 (0-5)
[2022-09-06 14:48] VITALS: PULSE 48; O2SAT 92
[2022-09-06 14:51] VITALS: BP 130/88; PULSE 47; RESP 18; TEMP 36.4; O2SAT 96
--- NOTE | 2022-09-06 14:52 | ED.NURSE ---
When obtaining vital signs, noted to have a slower heart rate. EKG obtained. Updated provider. Per report, patient recently switched to amlodipine from lisinopril for hypertension management because of creatinine elevations.
== END 2022-09-06 16:32 | disposition home or self-care (01) ==
PROVIDERS: Emergency Provider Family Medicine; PCP Family Medicine
DX: R53.1 Weakness (principal)
CPT/HCPCS: 81001; 93005; 99283; 99284

== ENCOUNTER 2023-02-03 16:32 | Emergency (ER) | payer MEDICARE, BC, SELFPAY ==
[2023-02-03] VITALS (13 sets, daily range): BP systolic 126–181; BP diastolic 74–102; PULSE 39–47; RESP 18; TEMP 36.6; O2SAT 92–97; BMI 27.3
--- NOTE | 2023-02-03 17:45 | ED.GENADULT ---
HPI - General Adult General Chief complaint: Arrhythmia/Palpitations Stated complaint: Low pulse Time Seen by Provider: 02/03/23 17:43 History of Present Illness HPI narrative: Patient reports pulse readings in the upper 40's today noted at PT and then at home. She reports normal pulse at 50. EKGS from August do show bradycardia with block at 47. Patient has Alzheimer's, appear tired in triage. 83-year-old man here with spouse with concern of bradycardia. Had PT out to assess for obtaining a wheelchair so that Mr. Perez might be able to participate more with family activities. Nurse and physical therapist noted pulse to be around 47 but bouncing around somewhat. Spouse notes him to be more ?lethargic? today. Has been hospitalized prior for weakness related to urinary tract infection. No fevers. Underlying history of significant dementia. Has demonstrated a right bundle-branch block and bradycardia in the past around upper 40s. I am not aware that there has been any further cardiac evaluation since. Some years ago they do endorse seeing [facility] around some chest pain. Recently evaluated also for by Neurology per spouse report. No recent falls/head injury described. Have had trouble keeping up with fluids. reports how she is constantly placing liquids to drink nearby but he has to be reminded. No fever. No cough. No shortness of breath. Related Data Home Medications Medication Instructions Recorded Confirmed acetaminophen 500 mg capsule 1,000 mg PO TID 08/20/22 09/06/22 donepezil 10 mg tablet 10 mg PO HS 08/20/22 09/06/22 memantine 10 mg tablet 10 mg PO BID 08/20/22 09/06/22 tamsulosin 0.4 mg capsule 0.4 mg PO DAILY@1300 08/20/22 09/06/22 venlafaxine 37.5 mg 37.5 mg PO DAILY 08/20/22 09/06/22 capsule,extended release 24 hr Methylcobalamin 1,000 mcg PO DAILY 08/26/22 09/06/22 amlodipine 2.5 mg tablet 2.5 mg PO DAILY 08/26/22 09/06/22 cholecalciferol (vitamin D3) 50 50 mcg PO DAILY 08/26/22 09/06/22 mcg (2,000 unit) capsule grape seed extract 50 mg capsule 50 mg PO DAILY 08/26/22 09/06/22 melatonin 5 mg tablet 5 mg PO QHS 08/26/22 09/06/22 multivitamin (Daily Multi-Vitamin 1 tab PO DAILY 08/26/22 09/06/22 tablet) omega 1-ron-kky-fish oil 1,600 5 ml PO DAILY 08/26/22 09/06/22 mg-500 mg-800 mg/5 mL oral liquid (Fish Oil) oxybutynin chloride 5 mg tablet 2.5 mg PO BID 08/26/22 09/06/22 potassium citrate 99 mg capsule 99 mg PO BID 08/26/22 09/06/22 sennosides 8.6 mg tablet (Patti-jose) 8.6 mg PO QHS 08/26/22 09/06/22 tramadol 50 mg tablet 25 - 50 mg PO 3XD PRN 08/26/22 09/06/22 Allergies Allergy/AdvReac Type Severity Reaction Status Date / Time No Known Drug Allergies Allergy Verified 08/25/22 14:23 Review of Systems Status of ROS: Reports: 6 or more systems reviewed and unremarkable except as noted in History and below PFSH [facility] Social History What is your current living situation?: I presently have a place to live Problems where you live: no known problems Problems where you live details: none In the past 12 months, utilities in danger of being shut off: no In past 12 months, lack of transportation kept you from medical appts, meetings, work, or getting things needed for daily living: no In the past 12 mos, have been you worried that your food would run out before you had money to buy more?: never true In the past 12 mos, the food you bought just didn't last and you didn't have money to buy more?: never true Smoking Status: Former smoker What tobacco products do you use: cigarettes Smoking quit date/years: >15 years ago Do you use any of these nicotine containing products: None Second hand tobacco smoke exposure: No How often do you have a drink containing alcohol: 2-4 times a month Alcohol type: wine Alcohol type details: glass of wine with dinner How many standard drinks containing alcohol do you have on a typical day: 1 or 2 How often do you have six or more drinks on one occasion: Never AUDIT-C Alcohol total score: 2 Non-prescribed substance use: denies use Caffeine: Yes How often does anyone, including family, friends and others, physically hurt you: never How often does anyone, including family, friends and others, insult or talk down to you: never How often does anyone, including family, friends and others, threaten you with harm: never How often does anyone, including family, friends and others, scream or curse at you: never service: No Exam Narrative: Exam Narrative: Does respond to questioning though not vocalizing responses. Flat facies. Alzheimer's has presented primarily as inability to express himself in speech. At 1 point does become agitated and demonstrates briefly as if he is going to punch this examiner. Reportedly this is not unusual. Opens eyes and alerts to the interviewer. Resting with his mouth open. Appears to be breathing easily. Lungs are clear but with limited respiratory effort. Heart in regular but bradycardic rhythm. Strong and equal upper extremity pulses. Lower extremity with little over 1+ pitting edema left greater than right in the pretibial area. This reportedly is not new. Abdomen is generally soft. Seems to resist exam a little bit but without clear pain response. I would say not atypical for dementia reaction but I think will require further investigation. Const: Vital Signs, click to edit/add: Vital Signs - 24 hr 02/03/23 17:03 02/03/23 18:08 02/03/23 18:09 Temperature 97.9 F Pulse Rate 42 L 46 L Pulse Rate [Pulse Oximeter] 47 L Respiratory Rate 18 Blood Pressure 152/83 H Blood Pressure [Ri ght Upper Arm] 126/74 Pulse Oximetry 97 95 94 Oxygen Delivery Me thod Room Air 02/03/23 18:24 02/03/23 18:30 02/03/23 18:32 Temperature Pulse Rate 43 L 43 L Pulse Rate [Pulse Oximeter] Respiratory Rate Blood Pressure 148/76 H Blood Pressure [Ri ght Upper Arm] Pulse Oximetry 94 93 92 Oxygen Delivery Me thod 02/03/23 19:00 02/03/23 19:05 02/03/23 19:16 Temperature Pulse Rate 43 L 43 L 42 L Pulse Rate [Pulse Oximeter] Respiratory Rate Blood Pressure 156/76 H Blood Pressure [Ri ght Upper Arm] Pulse Oximetry 94 95 96 Oxygen Delivery Me thod 02/03/23 19:30 02/03/23 19:32 02/03/23 20:00 Temperature Pulse Rate 42 L 39 L 41 L Pulse Rate [Pulse Oximeter] Respiratory Rate Blood Pressure 162/80 H Blood Pressure [Ri ght Upper Arm] Pulse Oximetry 94 96 96 Oxygen Delivery Ma thod 02/03/23 20:05 Temperature Pulse Rate 45 L Pulse Rate [Pulse Oximeter] Respiratory Rate Blood Pressure 181/102 H Blood Pressure [Ri ght Upper Arm] Pulse Oximetry 95 [facility] Documenting provider has reviewed patient's vital signs: yes Course Vital Signs Vital signs: Initial Vital Signs Temperature 97.9 F 02/03/23 17:03 Temperature Source Temporal Artery Scan 02/03/23 17:03 Pulse Rate 47 L 02/03/23 17:03 Respiratory Rate 18 02/03/23 17:03 Blood Pressure 126/74 02/03/23 17:03 Blood Pressure Mean 91 02/03/23 17:03 Pulse Oximetry 97 02/03/23 17:03 Oxygen Delivery Method Room Air 02/03/23 17:03 Vital Signs Temperature 97.9 F 02/03/23 17:03 Pulse Rate 47 L 02/03/23 17:03 Respiratory Rate 18 02/03/23 17:03 Blood Pressure 126/74 02/03/23 17:03 Pulse Oximetry 97 02/03/23 17:03 Oxygen Delivery Method Room Air 02/03/23 17:03 Temperature 97.9 F 02/03/23 17:03 Pulse Rate 45 L 02/03/23 20:05 Respiratory Rate 18 02/03/23 17:03 Blood Pressure 181/102 H 02/03/23 20:05 Pulse Oximetry 95 02/03/23 20:05 Oxygen Delivery Method Room Air 02/03/23 17:03 Medical Decision Making MDM Narrative Medical decision making narrative: This bradycardia is not new but may be a little more than prior. The reported low energy maybe completely independent of what looks to be a sinus bradycardia my review of EKG and I would look for infectious etiology at this time. Will do chest x-ray, look at urine, assess chemistries as well. No recent medication changes. Rare tramadol. Chest x-ray reviewed by me without infiltrate though with poor expansion of chest. Not inconsistent with exam. Did receive a L of normal saline IV in the emergency department. Monitored on library monitor during time in the ER. Vitals stable. Heart rate remained in the 40s. Did discuss this case with Cardiology on-call physician at [facility]. Reviewed medications. No further recommendations at this time but happy to see in follow-up. Urinalysis was pending upon departure as Mr. Perez was up and agitated for departure. Ambulating stiffly but easily. Removing monitoring stickers. I did follow-up this unremarkable urinalysis result in again extensive conversation with spouse over the phone later. Labs are overall reassuring during time in the ER. Lab Data Lab results reviewed: Yes I reviewed the patient's lab results Labs: Lab Results 02/03/23 02/03/23 02/03/23 Range/Units 18:55 19:18 20:40 WBC 5.59 (4.50-11.00) K/uL RBC 4.36 (4.30-5.90) m/uL Hgb 13.9 (13.5-17.5) gm/dL Hct 43.2 (37.0-53.0) % MCV 99 (80-100) fL MCH 32 (26-34) pg MCHC 32 (32-36) gm/dL RDW Coeff of [place] 12.5 (11.5-15.5) % Plt Count 220 (140-440) K/uL Neut % (Auto) 50.2 (42.0-72.0) % Lymph % (Auto) 30.1 (20-44) % [place] % (Auto) 14.0 H (0.0-11.0) % Eos % (Auto) 4.8 (0.0-7.0) % Baso % (Auto) 0.2 (0.0-3.0) % Neut # (Auto) 2.81 (1.7-7.0) K/uL Lymph # (Auto) 1.68 (0.90-2.90) K/uL [place] # (Auto) 0.80 (0.00-0.90) K/UL Eos # (Auto) 0.27 (0.00-0.50) K/uL Baso # (Auto) 0.01 (0.00-0.30) K/uL Abs Immat Gran (auto) 0.04 (0.00-0.30) K/uL Imm/Tot Granulo (auto) 0.7 % Sodium 141 (135-149) mmol/L Potassium 4.5 (3.6-5.1) mmol/L Chloride 107 (96-114) mmol/L Carbon Dioxide 23 (20-32) mmol/L Anion Gap 11 (7-15) mEq/L BUN 25 (7-30) mg/dL Creatinine 1.3 (0.5-1.5) mg/dL Estimated Creat Clear 42.90 Estimated GFR 54 ml/min Glucose 96 (60-115) mg/dL Calcium 10.0 (8.4-10.6) mg/dL Magnesium 2.2 (1.5-2.6) mg/dL Total Bilirubin 0.5 (0.1-1.5) mg/dL Direct Bilirubin 0.1 (0.0-0.5) mg/dL AST 31 (12-35) U/L ALT 20 (4-50) U/L Alkaline Phosphatase 38 L (40-150) U/L Troponin I 0.01 (0.01-0.04) ng/mL C-Reactive Protein 0.6 (0.5-1.0) mg/dL NT-Pro-B Natriuret Pep 391 pg/mL Total Protein 7.3 (6.0-8.3) g/dL Albumin 4.4 (3.3-5.0) g/dL TSH 2.340 (0.270-4.20) uIU/mL Urine Color Yellow (Yellow) Urine Appearance Clear (Clear) Urine pH 5.5 (5.0-8.5) Ur Specific [place] 1.025 (1.000-1.030) Urine Protein Trace A (Negative) Urine Glucose (UA) Negative (Negative) Urine Ketones Negative (Negative) Urine Blood Negative (Negative) Urine Nitrite Negative (Negative) Urine Bilirubin Negative (Negative) Urine Urobilinogen 0.2 (0.2-1.0) Ur Leukocyte Esterase Negative (Negative) Urine RBC 0-2 (0-2) Urine WBC 0-2 (0-5) Ur Squamous Epith Cells None (None-Few) Urine Bacteria None (None) SARS-CoV-2 (PCR) Negative SARS-CoV-2 (Negative) Influenza Type A (PCR) Negative PCR FLU A (Negative) Influenza Type B (PCR) Negative PCR FLU B (Negative) RSV (PCR) Negative PCR RSV (Negative) ECG Data Attestation: I personally reviewed and interpreted this ECG as follows: (1. Sinus bradycardia right bundle-branch block similar to prior. Rate of 47 2. Bradycardia with right bundle-branch block rate of 42) Discharge Plan Discharge Clinical Impression: Bradycardia, sinus Patient Disposition: Home w/ Parent or Adult Condition: Stable Additional Instructions: Yes. Consistent with last visit to this emergency department, it does not appear that this bradycardia is new for you. It appears you are generally asymptomatic from this. [facility] would be happy to see you in outpatient follow-up but would not recommend any intervention at this time. I will call you with the results of your urinalysis. Prescriptions: No Action tamsulosin 0.4 mg capsule 0.4 mg PO DAILY@1300 memantine 10 mg tablet 10 mg PO BID venlafaxine 37.5 mg capsule,extended release 24hr 37.5 mg PO DAILY donepezil 10 mg tablet 10 mg PO HS acetaminophen 500 mg capsule 1,000 mg PO TID melatonin 5 mg tablet 5 mg PO QHS potassium citrate 99 mg capsule 99 mg PO BID amlodipine 2.5 mg tablet 2.5 mg PO DAILY oxybutynin chloride 5 mg tablet 2.5 mg PO BID tramadol 50 mg tablet 25 - 50 mg PO 3XD PRN Fish Oil 1,600-500-800 mg/5 mL liquid 5 ml PO DAILY multivitamin [Daily Multi-Vitamin] Tablet 1 tab PO DAILY sennosides [Patti-jose] 8.6 mg tablet 8.6 mg PO QHS cholecalciferol (vitamin D3) 50 mcg (2,000 unit) capsule 50 mcg PO DAILY Methylcobalamin 1,000 mcg 1,000 mcg PO DAILY grape seed extract 50 mg capsule 50 mg PO DAILY Rx Instructions: give with food (meal/snack) Follow Up/Referrals: Blas Mckenna DO [Referring] - Stand Alone Forms: [facility] Info Instructions
--- NOTE | 2023-02-03 18:24 | CRLHL7_ITS ---
For Patients: As a result of the Cures Act, medical imaging exams and procedure reports are released immediately into your electronic medical record. You may view this report before your referring provider. If you have questions, please contact your health care provider. INDICATION: Mild hypoxia. TECHNIQUE: Chest 1 views. COMPARISON: August 26, 2022. FINDINGS: Cardiovascular and mediastinum: Heart size and vasculature are normal in caliber and appearance. Lungs and pleural spaces: Low lung volumes. No sign of infiltrate or mass. No sign of pleural effusion. No pneumothorax. Bones and soft tissues: No significant findings. IMPRESSION: Low lung volumes. No acute findings and no significant changes from the prior exam. Dictated by Reji Martínez MD @ 02/03/2023 8:01:57 PM (Electronically Signed)
[2023-02-03 19:32] LABS: Basophils Absolute Auto 0.01 K/uL (0.00-0.30); Basophils Percent Auto 0.2 % (0.0-3.0); Eosinophils Absolute Auto 0.27 K/uL (0.00-0.50); Eosinophils Percent Auto 4.8 % (0.0-7.0); Hematocrit 43.2 % (37.0-53.0); Hemoglobin* 13.9 gm/dL (13.5-17.5); Immature Granulocytes Abs Auto 0.04 K/uL (0.00-0.30); Immature Granulocytes Pct Auto 0.7 %; Lymphocytes Absolute Auto 1.68 K/uL (0.90-2.90); Lymphocytes Percent Auto 30.1 % (20-44); Mean Corpuscular HGB Conc 32 gm/dL (32-36); Mean Corpuscular Hemoglobin 32 pg (26-34); Mean Corpuscular Volume 99 fL (80-100); Neutrophils Absolute Auto 2.81 K/uL (1.7-7.0); Neutrophils Percent Auto 50.2 % (42.0-72.0); Platelet Count* 220 K/uL (140-440); RDW Coefficient of Variation % 12.5 % (11.5-15.5); Red Blood Count 4.36 m/uL (4.30-5.90); White Blood Count* 5.59 K/uL (4.50-11.00)
[2023-02-03 19:37] LABS: Albumin* 4.4 g/dL (3.3-5.0); Chloride* 107 mmol/L (96-114); Slide Review Reflex No; Sodium* 141 mmol/L (135-149)
[2023-02-03 19:38] LABS: Potassium* 4.5 mmol/L (3.6-5.1)
[2023-02-03 19:40] LABS: Alkaline Phosphatase* 38 U/L (40-150); Anion Gap 11 mEq/L (7-15); Aspartate Amino Transferase* 31 U/L (12-35); Bilirubin Direct* 0.1 mg/dL (0.0-0.5); Bilirubin Total* 0.5 mg/dL (0.1-1.5); Carbon Dioxide* 23 mmol/L (20-32); Creatinine* 1.3 mg/dL (0.5-1.5); Estimated Glomerular Filt Rate 54 ml/min; Total Protein* 7.3 g/dL (6.0-8.3)
[2023-02-03 19:41] LABS: Alanine Aminotransferase* 20 U/L (4-50); Blood Urea Nitrogen* 25 mg/dL (7-30); Glucose* 96 mg/dL (60-115); Magnesium* 2.2 mg/dL (1.5-2.6)
[2023-02-03 19:43] LABS: C Reactive Protein* 0.6 mg/dL (0.5-1.0)
[2023-02-03 19:45] LABS: PCR FLU A Negative PCR FLU A (Negative); PCR FLU B Negative PCR FLU B (Negative); PCR RSV Negative PCR RSV (Negative)
[2023-02-03 19:52] LABS: Troponin I* 0.01 ng/mL (0.01-0.04)
[2023-02-03 20:00] LABS: NT Pro B Type NatriureticPept* 391 pg/mL
[2023-02-03 20:01] LABS: SARS PCR* Negative SARS-CoV-2 (Negative)
[2023-02-03 21:01] LABS: Appearance Urine Clear (Clear); Bilirubin Urine Negative (Negative); Blood Urine Negative (Negative); Color Urine Yellow (Yellow); Glucose Urine Negative (Negative); Ketones Urine Negative (Negative); Leukocyte Esterase Urine Negative (Negative); Nitrite Urine Negative (Negative); Protein Urine Trace (Negative); Specific Gravity Urine 1.025 (1.000-1.030); Urobilinogen Urine 0.2 (0.2-1.0); pH Urine 5.5 (5.0-8.5)
[2023-02-03 21:07] LABS: RBC Urine 0-2 (0-2); WBC Urine 0-2 (0-5)
== END 2023-02-03 20:56 | disposition home or self-care (01) ==
PROVIDERS: Emergency Provider Family Medicine; PCP Family Medicine
DX: R00.1 Bradycardia, unspecified (principal)
CPT/HCPCS: 36415; 71045; 80048; 80076; 81001; 83735; 83880; 84443; 84484; 85025; 86140; 87631; 93005; 94761; 99284; 99285

== ENCOUNTER 2023-04-07 15:35 | Outpatient (CLI) | payer MEDICARE, BC, SELFPAY | END 2023-04-07 15:36 | disposition home or self-care (01) | LOC: AMB 04-09 09:40 | PROVIDERS: PCP Student in an Organized Health Care Education/Training Program; Visit Provider Family Medicine | DX: S29.9XXA Unspecified injury of thorax, initial encounter (principal); W18.30XA Fall on same level, unspecified, initial encounter; Y92.039 Unspecified place in apartment as the place of occurrence of the external cause | CPT/HCPCS: A0425; A0429 ==

== ENCOUNTER 2023-04-07 16:00 | Emergency (ER) | payer MEDICARE, BC, SELFPAY ==
--- NOTE | 2023-04-07 16:18 | CRLHL7_ITS ---
For Patients: As a result of the Century Cures Act, medical imaging exams and procedure reports are released immediately into your electronic medical record. You may view this report before your referring provider. If you have questions, please contact your health care provider. INDICATION: Headaches. Trauma. TECHNIQUE: Noncontrast axial CT of the head is submitted. Compared to prior study from August 25, 2022. FINDINGS: Moderate cerebral atrophy. Stable prominence of the arachnoid spaces overlying both cerebral convexities, right more so than left, due to central atrophy. The ventricles, sulci and gyri are of normal size, shape and contour for age and degree of atrophy. Midline structures are centrally located. No convincing evidence of suspicious intra- or extra-axial fluid collections. Mild patchy regions of decreased attenuation within the periventricular and subcortical white matter of both cerebral hemispheres. IMPRESSION: 1. No radiographic evidence of acute intracranial abnormalities. 2. Moderate cerebral atrophy. 3. Mild supratentorial white matter changes that are non-specific, but statistically most likely related to chronic small vessel ischemic disease. Dictated by Jae Giron MD @ 04/07/2023 5:20:15 PM Please note that all CT scans at this facility use dose modulation, iterative reconstruction, and/or weight-based dosing when appropriate to reduce radiation dose to as low as reasonably achievable. Dictated by: Jae Giron MD @ 04/07/2023 17:20:22 (Electronically Signed)
--- NOTE | 2023-04-07 16:19 | CRLHL7_ITS ---
For Patients: As a result of the Century Cures Act, medical imaging exams and procedure reports are released immediately into your electronic medical record. You may view this report before your referring provider. If you have questions, please contact your health care provider. Indication: Neck pain. Trauma. Technique: Noncontrast axial CT of the cervical spine with coronal and sagittal reformats are provided. No comparisons. Findings: The overall stature, alignment of the cervical spine is within normal limits. No convincing evidence of suspicious bony fragments narrowing the central canal or neural foramina. Prevertebral soft tissues, cervical airway, dens and lateral masses are within normal limits. Mild scattered degenerative changes of the cervical spine. Impression: 1. No convincing radiographic evidence of acute osseous injury. 2. Mild scattered degenerative changes of the cervical spine. Dictated by Jae Giron MD @ 04/07/2023 5:22:02 PM Please note that all CT scans at this facility use dose modulation, iterative reconstruction, and/or weight-based dosing when appropriate to reduce radiation dose to as low as reasonably achievable. Dictated by: Jae Giron MD @ 04/07/2023 17:22:09 (Electronically Signed)
--- NOTE | 2023-04-07 16:19 | ED.GENADULT ---
HPI - General Adult General Time Seen by Provider: 16:19 <Tiffanie Aiken MD - Last Filed: 04/07/23 17:41> Date Seen: 04/07/23 <Tiffanie Aiken MD - Last Filed: 04/07/23 17:41> Chief complaint: Fall/Minor Trauma <Tiffanie Aiken MD - Last Filed: 04/07/23 17:41> Stated complaint: Weakness <Tiffanie Aiken MD - Last Filed: 04/07/23 17:41> Time Seen by Provider: 04/07/23 16:09 <Tiffanie Aiken MD - Last Filed: 04/07/23 17:41> Source: patient, family, EMS and RN notes reviewed <Tiffanie Aiken MD - Last Filed: 04/07/23 17:41> Mode of arrival: EMS <Tiffanie Aiken MD - Last Filed: 04/07/23 17:41> Limitations: altered mental status (Has dementia) <Tiffanie Aiken MD - Last Filed: 04/07/23 17:41> History of Present Illness HPI narrative: This 83-year-old male with significant dementia is brought in from home where he resides with his after a fall. She notes he does have problems with low back pain and his gait, difficulty speaking did his underlying dementia baseline. She was laying on the couch, complained of feeling cold. He went to get up out of his chair to gravel blanket for her. He lost his balance, fell somewhat sideways and backwards, he landed on his back and the back of his head. She thinks he hit the arm of his chair and maybe the table next to limb or the leg of the table on his way down. He is not bleeding anywhere. He did not lose consciousness. He was complaining of low back pain and she does endorse this being a chronic issue for him. It sounds though that this may be acute on chronic. He has significant dementia, is not verbalizing any pain now. She states he had a restless night last night, was up much of the night but did sleep in. He has not had any fevers. His notes that he attempted to get up but could not get up on his own. He was brought in by EMS for weakness. Patient is not really able to give me any of his history due to his lack of ability to verbalize. She believes he absolutely hit the back of his head, again no loss of consciousness. He is known to have a chronic subdural hematoma in she states they have no idea when or why it happened. He is not on any blood thinners. He has had a history of UTI, she does worry that perhaps maybe it could be urinary, she also notes she cannot get him to drink, wonders if there could be dehydration. <Tiffanie Aiken MD - Last Filed: 04/07/23 17:41> Related Data Home medications: Home Medications Medication Instructions Recorded Confirmed acetaminophen 500 mg capsule 1,000 mg PO TID 08/20/22 09/06/22 donepezil 10 mg tablet 10 mg PO HS 08/20/22 09/06/22 memantine 10 mg tablet 10 mg PO BID 08/20/22 09/06/22 tamsulosin 0.4 mg capsule 0.4 mg PO DAILY@1300 08/20/22 09/06/22 venlafaxine 37.5 mg 37.5 mg PO DAILY 08/20/22 09/06/22 capsule,extended release 24 hr Methylcobalamin 1,000 mcg PO DAILY 08/26/22 09/06/22 amlodipine 2.5 mg tablet 2.5 mg PO DAILY 08/26/22 09/06/22 cholecalciferol (vitamin D3) 50 50 mcg PO DAILY 08/26/22 09/06/22 mcg (2,000 unit) capsule grape seed extract 50 mg capsule 50 mg PO DAILY 08/26/22 09/06/22 melatonin 5 mg tablet 5 mg PO QHS 08/26/22 09/06/22 multivitamin (Daily Multi-Vitamin 1 tab PO DAILY 08/26/22 09/06/22 tablet) omega 3-qsx-nyq-fish oil 1,600 5 ml PO DAILY 08/26/22 09/06/22 mg-500 mg-800 mg/5 mL oral liquid (Fish Oil) oxybutynin chloride 5 mg tablet 2.5 mg PO BID 08/26/22 09/06/22 potassium citrate 99 mg capsule 99 mg PO BID 08/26/22 09/06/22 sennosides 8.6 mg tablet (Patti-jose) 8.6 mg PO QHS 08/26/22 09/06/22 tramadol 50 mg tablet 25 - 50 mg PO 3XD PRN 08/26/22 09/06/22 <Tiffanie Aiken MD - Last Filed: 04/07/23 17:41> Allergies/adverse reactions: Allergies Allergy/AdvReac Type Severity Reaction Status Date / Time No Known Drug Allergies Allergy Verified 08/25/22 14:23 <Tiffanie Aiken MD - Last Filed: 04/07/23 17:41> Review of Systems Status of ROS: Reports: 6 or more systems reviewed and unremarkable except as noted in History and below <Tiffanie Aiken MD - Last Filed: 04/07/23 17:41> PFSH PFS Social History: Social History What is your current living situation?: I presently have a place to live Problems where you live: no known problems Problems where you live details: none In the past 12 months, utilities in danger of being shut off: no In past 12 months, lack of transportation kept you from medical appts, meetings, work, or getting things needed for daily living: no In the past 12 mos, have been you worried that your food would run out before you had money to buy more?: never true In the past 12 mos, the food you bought just didn't last and you didn't have money to buy more?: never true Smoking Status: Former smoker What tobacco products do you use: cigarettes Smoking quit date/years: >15 years ago Do you use any of these nicotine containing products: None Second hand tobacco smoke exposure: No How often do you have a drink containing alcohol: never How often do you have six or more drinks on one occasion: Never AUDIT-C Alcohol total score: 0 Non-prescribed substance use: denies use Caffeine: Yes How often does anyone, including family, friends and others, physically hurt you: never How often does anyone, including family, friends and others, insult or talk down to you: never How often does anyone, including family, friends and others, threaten you with harm: never How often does anyone, including family, friends and others, scream or curse at you: never service: No <Tiffanie Aiken MD - Last Filed: 04/07/23 17:41> Exam Const: Vital Signs, click to edit/add: Vital Signs - 24 hr 04/07/23 16:21 04/07/23 16:30 04/07/23 18:08 Temperature 98.3 F Pulse Rate [Pulse Oximeter] 43 L Respiratory Rate 16 18 Blood Pressure [Ri ght Upper Arm] 147/71 H 175/98 H Pulse Oximetry 92 95 95 Oxygen Delivery Me thod Room Air Room Air Patient has is eyes closed, apparently sleeping mine flat on the ER cart. He does open his eyes with interaction. Does attempt to try to talk at times but it comes out more and mumbling. Conjugate gaze, pupils are equal round reactive. Face is atraumatic. See no active evidence of any acute trauma to scalp. No drainage from his ears or nares. No midline tenderness of his neck, patient is able to roll up onto his side with some difficulty, see no traumatic change to his back. He does not seem to complain of any pain when I palpate down the spine. Lungs sound clear, no wheezing or crackles but there is poor effort. CV regular rate and rhythm, no murmur, normal S1-S2, no S3-S4. Abdomen seems to be soft, does not complain of any tenderness when I palpate. I do not feel any masses or organomegaly. See no traumatic changes on his arms or legs. Do not really get him to cooperate with following commands such as moving his legs to command or moving his arms to command. He does move his legs however when ask him to roll to his side, does uses right arm to reach over and grab onto the railing, do see him move his left arm up and out of the way when he rolls to his side. He really only makes it to about a 45 degree angle on attempt to roll to his left side. <Tiffanie Aiken MD - Last Filed: 04/07/23 17:41> Vital Signs, click to edit/add: Vital Signs - 24 hr 04/07/23 16:21 04/07/23 16:30 04/07/23 18:08 Temperature 98.3 F Pulse Rate [Pulse Oximeter] 43 L Respiratory Rate 16 18 Blood Pressure [Ri ght Upper Arm] 147/71 H 175/98 H Pulse Oximetry 92 95 95 Oxygen Delivery Me thod Room Air Room Air <Cristina King MD - Last Filed: 04/07/23 20:00> Documenting provider has reviewed patient's vital signs: yes <Tiffanie Aiken MD - Last Filed: 04/07/23 17:41> Course Course ED Course: His is concerned about traumatic change because of the fall. She is also concerned about his weakness. He may still be within normal limits for him as he will sometimes fluctuate between being stronger and weaker per his . We did discuss doing laboratory evaluation, checking for UTI. She would like this. She is concerned about dehydration. Will give him a small fluid bolus. He is afebrile. The bradycardia that he has is not new unclear if this is causing any symptomatology but in a knee 83-year-old male with advanced dementia there is not likely to be any further recommended interventions at this time. Will review his medicines just to make sure he is not on any medication that would further bradycardia. This is been present on EKGs last year, his states that is chronic for him. The bradycardia does not seem to have progressed. I would favor having them follow up outpatient with his primary care provider to fully discuss this further. Do think he needs imaging of his lumbar spine from the fall as well as imaging of his head and neck. Unfortunately, do not think he will be able to comply with plain x-rays of his lumbar spine. Also, his notes he has some chronic back issues, likely to have significant degenerative changes. Thus, have discussed imaging and will go with noncontrast lumbar imaging CT. <Tiffanie Aiken MD - Last Filed: 04/07/23 17:41> Reevaluation(s) Time of Reevaluation #1: 17:40 <Tiffanie Aiken MD - Last Filed: 04/07/23 17:41> Reevaluation #1: Have reviewed with patient and his that his CT imaging of his head, cervical spine and lumbar spine are showing no acute pathology. We did review that he has some degenerative changes in the cervical spine and lumbar spine. She is unsure if she will be able to get him home if the labs are normal. He normally would take 2 extra-strength Tylenol in the afternoon. We can give him 1000 mg of Tylenol here. He did provide a urinalysis specimen, did not have to catheterize him. We are waiting labs at this time. Will have to see if she is able to get him home if labs are normal. <Tiffanie Aiken MD - Last Filed: 04/07/23 17:41> Vital Signs Vital signs: Initial Vital Signs Temperature 98.3 F 04/07/23 16:21 Temperature Source Temporal Artery Scan 04/07/23 16:21 Pulse Rate 43 L 04/07/23 16:21 Respiratory Rate 16 04/07/23 16:21 Blood Pressure 147/71 H 04/07/23 16:21 Blood Pressure Mean 96 04/07/23 16:21 Blood Pressure Position Supine 04/07/23 16:21 Pulse Oximetry 92 04/07/23 16:21 Oxygen Delivery Method Room Air 04/07/23 16:21 Vital Signs Temperature 98.3 F 04/07/23 16:21 Pulse Rate 43 L 04/07/23 16:21 Respiratory Rate 16 04/07/23 16:21 Blood Pressure 147/71 H 04/07/23 16:21 Pulse Oximetry 92 04/07/23 16:21 Oxygen Delivery Method Room Air 04/07/23 16:21 Temperature 98.3 F 04/07/23 16:21 Pulse Rate 43 L 04/07/23 16:21 Respiratory Rate 18 04/07/23 18:08 Blood Pressure 175/98 H 04/07/23 18:08 Pulse Oximetry 95 04/07/23 18:08 Oxygen Delivery Method Room Air 04/07/23 18:08 <Tiffanie Aiken MD - Last Filed: 04/07/23 17:41> Initial Vital Signs Temperature 98.3 F 04/07/23 16:21 Temperature Source Temporal Artery Scan 04/07/23 16:21 Pulse Rate 43 L 04/07/23 16:21 Respiratory Rate 16 04/07/23 16:21 Blood Pressure 147/71 H 04/07/23 16:21 Blood Pressure Mean 96 04/07/23 16:21 Blood Pressure Position Supine 04/07/23 16:21 Pulse Oximetry 92 04/07/23 16:21 Oxygen Delivery Method Room Air 04/07/23 16:21 Vital Signs Temperature 98.3 F 04/07/23 16:21 Pulse Rate 43 L 04/07/23 16:21 Respiratory Rate 16 04/07/23 16:21 Blood Pressure 147/71 H 04/07/23 16:21 Pulse Oximetry 92 04/07/23 16:21 Oxygen Delivery Method Room Air 04/07/23 16:21 Temperature 98.3 F 04/07/23 16:21 Pulse Rate 43 L 04/07/23 16:21 Respiratory Rate 18 04/07/23 18:08 Blood Pressure 175/98 H 04/07/23 18:08 Pulse Oximetry 95 04/07/23 18:08 Oxygen Delivery Method Room Air 04/07/23 18:08 <Cristina King MD - Last Filed: 04/07/23 20:00> Medications Administered Medications: Discontinued Medications Generic Name Dose Route Start Last Admin Trade Name Freq PRN Reason Stop Dose Admin Acetaminophen 1,000 mg 04/07/23 17:41 04/07/23 18:00 Acetaminophen 500 Mg Tablet PO 04/07/23 17:42 1,000 mg ONCE ONE Administration Sodium Chloride 500 mls @ 500 mls/hr 04/07/23 16:31 04/07/23 18:36 0.9 % Sodium Chloride 500 Ml IV 04/07/23 17:30 Infused .Q1H ONE Infusion <Tiffanie Aiken MD - Last Filed: 04/07/23 17:41> Discontinued Medications Generic Name Dose Route Start Last Admin Trade Name Freq PRN Reason Stop Dose Admin Acetaminophen 1,000 mg 04/07/23 17:41 04/07/23 18:00 Acetaminophen 500 Mg Tablet PO 04/07/23 17:42 1,000 mg ONCE ONE Administration Sodium Chloride 500 mls @ 500 mls/hr 04/07/23 16:31 04/07/23 18:36 0.9 % Sodium Chloride 500 Ml IV 04/07/23 17:30 Infused .Q1H ONE Infusion <Cristina King MD - Last Filed: 04/07/23 20:00> Medical Decision Making MDM Narrative Medical decision making narrative: 1. Fall-fortunately no evidence of significant injury with head, cervical spine and lumbar CTs negative. Further, laboratory values did not show any evidence of anemia, altered LFTs, kidney infection. I did speak to the family in regards to this as per Dr. Jason request. They are anxious to go home at this time. Patient's daughter has now arrived and is very loving and supportive. She will assist her mom. 2. Bradycardia-this appears to be chronic in nature per previous reports. 3. Disposition-home at this time. Return for worsening symptoms and as needed. <Cristina King MD - Last Filed: 04/07/23 20:00> Medical Records Medical records reviewed: Yes I reviewed the patient's medical records <Cristina King MD - Last Filed: 04/07/23 20:00> Medical records narrative: Dr. Jason chart reviewed. <Cristina King MD - Last Filed: 04/07/23 20:00> Lab Data Lab results reviewed: Yes I reviewed the patient's lab results <Cristina King MD - Last Filed: 04/07/23 20:00> Labs: Lab Results 04/07/23 04/07/23 04/07/23 Range/Units 17:24 17:25 17:45 WBC 5.79 (4.50-11.00) K/uL RBC 4.33 (4.30-5.90) m/uL Hgb 13.8 (13.5-17.5) gm/dL Hct 43.0 (37.0-53.0) % MCV 99 (80-100) fL MCH 32 (26-34) pg MCHC 32 (32-36) gm/dL RDW Coeff of Moira 12.3 (11.5-15.5) % Plt Count 203 (140-440) K/uL Neut % (Auto) 50.3 (42.0-72.0) % Lymph % (Auto) 30.2 (20-44) % Beckham % (Auto) 14.3 H (0.0-11.0) % Eos % (Auto) 4.7 (0.0-7.0) % Baso % (Auto) 0.2 (0.0-3.0) % Neut # (Auto) 2.91 (1.7-7.0) K/uL Lymph # (Auto) 1.75 (0.90-2.90) K/uL Beckham # (Auto) 0.80 (0.00-0.90) K/UL Eos # (Auto) 0.27 (0.00-0.50) K/uL Baso # (Auto) 0.01 (0.00-0.30) K/uL Abs Immat Gran (auto) 0.02 (0.00-0.30) K/uL Imm/Tot Granulo (auto) 0.3 % Sodium 141 (135-149) mmol/L Potassium 4.3 (3.6-5.1) mmol/L Chloride 108 (96-114) mmol/L Carbon Dioxide 26 (20-32) mmol/L Anion Gap 7 (7-15) mEq/L BUN 19 (7-30) mg/dL Creatinine 1.3 (0.5-1.5) mg/dL Estimated GFR 54 ml/min Glucose 77 (60-115) mg/dL Lactate 1.4 (0.5-1.9) mmol/L Calcium 9.8 (8.4-10.6) mg/dL Total Bilirubin 0.3 (0.1-1.5) mg/dL AST 24 (12-35) U/L ALT 18 (4-50) U/L Alkaline Phosphatase 36 L (40-150) U/L Total Protein 6.6 (6.0-8.3) g/dL Albumin 3.9 (3.3-5.0) g/dL Urine Color Yellow (Yellow) Urine Appearance Clear (Clear) Urine pH 6.5 (5.0-8.5) Ur Specific [place] 1.015 (1.000-1.030) Urine Protein Negative (Negative) Urine Glucose (UA) Negative (Negative) Urine Ketones Negative (Negative) Urine Blood Negative (Negative) Urine Nitrite Negative (Negative) Urine Bilirubin Negative (Negative) Urine Urobilinogen 0.2 (0.2-1.0) Ur Leukocyte Esterase Negative (Negative) Urine RBC 0-2 (0-2) Urine WBC 0-2 (0-5) Ur Squamous Epith Cells Not Reportable Urine Bacteria None (None) SARS-CoV-2 (PCR) Negative SARS-CoV-2 (Negative) Influenza Type A (PCR) Negative PCR FLU A (Negative) Influenza Type B (PCR) Negative PCR FLU B (Negative) RSV (PCR) Negative PCR RSV (Negative) <Tiffanie Aiken MD - Last Filed: 04/07/23 17:41> Lab Results 04/07/23 04/07/23 04/07/23 Range/Units 17:24 17:25 17:45 WBC 5.79 (4.50-11.00) K/uL RBC 4.33 (4.30-5.90) m/uL Hgb 13.8 (13.5-17.5) gm/dL Hct 43.0 (37.0-53.0) % MCV 99 (80-100) fL MCH 32 (26-34) pg MCHC 32 (32-36) gm/dL RDW Coeff of Moira 12.3 (11.5-15.5) % Plt Count 203 (140-440) K/uL Neut % (Auto) 50.3 (42.0-72.0) % Lymph % (Auto) 30.2 (20-44) % Beckham % (Auto) 14.3 H (0.0-11.0) % Eos % (Auto) 4.7 (0.0-7.0) % Baso % (Auto) 0.2 (0.0-3.0) % Neut # (Auto) 2.91 (1.7-7.0) K/uL Lymph # (Auto) 1.75 (0.90-2.90) K/uL Beckham # (Auto) 0.80 (0.00-0.90) K/UL Eos # (Auto) 0.27 (0.00-0.50) K/uL Baso # (Auto) 0.01 (0.00-0.30) K/uL Abs Immat Gran (auto) 0.02 (0.00-0.30) K/uL Imm/Tot Granulo (auto) 0.3 % Sodium 141 (135-149) mmol/L Potassium 4.3 (3.6-5.1) mmol/L Chloride 108 (96-114) mmol/L Carbon Dioxide 26 (20-32) mmol/L Anion Gap 7 (7-15) mEq/L BUN 19 (7-30) mg/dL Creatinine 1.3 (0.5-1.5) mg/dL Estimated GFR 54 ml/min Glucose 77 (60-115) mg/dL Lactate 1.4 (0.5-1.9) mmol/L Calcium 9.8 (8.4-10.6) mg/dL Total Bilirubin 0.3 (0.1-1.5) mg/dL AST 24 (12-35) U/L ALT 18 (4-50) U/L Alkaline Phosphatase 36 L (40-150) U/L Total Protein 6.6 (6.0-8.3) g/dL Albumin 3.9 (3.3-5.0) g/dL Urine Color Yellow (Yellow) Urine Appearance Clear (Clear) Urine pH 6.5 (5.0-8.5) Ur Specific [place] 1.015 (1.000-1.030) Urine Protein Negative (Negative) Urine Glucose (UA) Negative (Negative) Urine Ketones Negative (Negative) Urine Blood Negative (Negative) Urine Nitrite Negative (Negative) Urine Bilirubin Negative (Negative) Urine Urobilinogen 0.2 (0.2-1.0) Ur Leukocyte Esterase Negative (Negative) Urine RBC 0-2 (0-2) Urine WBC 0-2 (0-5) Ur Squamous Epith Cells Not Reportable Urine Bacteria None (None) SARS-CoV-2 (PCR) Negative SARS-CoV-2 (Negative) Influenza Type A (PCR) Negative PCR FLU A (Negative) Influenza Type B (PCR) Negative PCR FLU B (Negative) RSV (PCR) Negative PCR RSV (Negative) <Cristina King MD - Last Filed: 04/07/23 20:00> Imaging Data CT scan - head: Attestation: I have reviewed the pertinent imaging results. <Tiffanie Aiken MD - Last Filed: 04/07/23 17:41> Radiologist's impression: Patient: PA NICOLE Facility:?[facility] Patient ID:?[id number] Site Patient ID:?[id number]. Site :?[id number] Study:?CT Head W/O-04/07/2023 5:07:46 PM Ordering Physician:Odessa Moreno Final Report: INDICATION: Headaches. Trauma. TECHNIQUE: Noncontrast axial CT of the head is submitted. Compared to prior study from August 25, 2022. FINDINGS: Moderate cerebral atrophy. Stable prominence of the arachnoid spaces overlying both cerebral convexities, right more so than left, due to central atrophy. The ventricles, sulci and gyri are of normal size, shape and contour for age and degree of atrophy. Midline structures are centrally located. No convincing evidence of suspicious intra- or extra-axial fluid collections. Mild patchy regions of decreased attenuation within the periventricular and subcortical white matter of both cerebral hemispheres. IMPRESSION: 1. No radiographic evidence of acute intracranial abnormalities. 2. Moderate cerebral atrophy. 3. Mild supratentorial white matter changes that are non-specific, but statistically most likely related to chronic small vessel ischemic disease. Dictated by Jae Giron MD @ 04/07/2023 5:20:15 PM Please note that all CT scans at this facility use dose modulation, iterative reconstruction, and/or weight-based dosing when appropriate to reduce radiation dose to as low as reasonably achievable. Dictated by: Jae Giron MD @ 04/07/2023 17:20:22 (Electronic Signature) <Tiffanie Aiken MD - Last Filed: 04/07/23 17:41> CT cervical spine: Attestation: I have reviewed the pertinent imaging results. <Tiffanie Aiken MD - Last Filed: 04/07/23 17:41> Radiologist's impression: Patient: PA NICOLE Facility:?[facility] Patient ID:?[id number] Site Patient ID:?[id number]. Site :?[id number] Study:?CT Spine Cervical -04/07/2023 5:08:14 PM Ordering Physician:Odessa Moreno Final Report: Indication: Neck pain. Trauma. Technique: Noncontrast axial CT of the cervical spine with coronal and sagittal reformats are provided. No comparisons. Findings: The overall stature, alignment of the cervical spine is within normal limits. No convincing evidence of suspicious bony fragments narrowing the central canal or neural foramina. Prevertebral soft tissues, cervical airway, dens and lateral masses are within normal limits. Mild scattered degenerative changes of the cervical spine. Impression: 1. No convincing radiographic evidence of acute osseous injury. 2. Mild scattered degenerative changes of the cervical spine. Dictated by Jae Giron MD @ 04/07/2023 5:22:02 PM Please note that all CT scans at this facility use dose modulation, iterative reconstruction, and/or weight-based dosing when appropriate to reduce radiation dose to as low as reasonably achievable. Dictated by: Jae Giron MD @ 04/07/2023 17:22:09 (Electronic Signature) <Tiffanie Aiken MD - Last Filed: 04/07/23 17:41> CT lumbar spine: Attestation: I have reviewed the pertinent imaging results. <Tiffanie Aiken MD - Last Filed: 04/07/23 17:41> Radiologist's impression: Patient: PA NICOLE Facility:?[facility] Patient ID:?[id number] Site Patient ID:?[id number]. Site :?[id number] Study:?CT Spine Lumbar -04/07/2023 5:09:05 PM Ordering Physician:Odessa Moreno Final Report: INDICATION: Low back pain. TECHNIQUE: Non-contrast axial CT of the lumbar spine with coronal and sagittal reconstructions. No comparisons. FINDINGS: Mild grade 1 anterolisthesis of L4 on 5. Postoperative change compatible with anterior/posterior L4-5 fusion with solid bony fusion. The overall stature and alignment within the remainder of the lumbar spine is within normal limits. No evidence of bony fragments narrowing the central canal or visualized neural foramina. Mild to moderate scattered degenerative change of the lumbar spine. IMPRESSION: 1. No radiographic evidence of acute osseous injury. 2. [id number] scattered degenerative changes of the lumbar spine. Dictated by Jae Giron MD @ 04/07/2023 5:24:20 PM Please note that all CT scans at this facility use dose modulation, iterative reconstruction, and/or weight-based dosing when appropriate to reduce radiation dose to as low as reasonably achievable. Dictated by: Jae Giron MD @ 04/07/2023 17:24:30 (Electronic Signature) <Tiffanie Aiken MD - Last Filed: 04/07/23 17:41> ECG Data Attestation: I personally reviewed and interpreted this ECG as follows: (Bradycardia, 42 beats per minute. Right bundle branch block. He machine reading of unusual P axis, this is been seen prior.) <Tiffanie Aiken MD - Last Filed: 04/07/23 17:41> Prior ECG tracings: available for review (Proceeding 3 EKGs from last year show bradycardia at rates of 42, 48 and 51.) <Tiffanie Aiken MD - Last Filed: 04/07/23 17:41> Discharge Plan Discharge Clinical Impression: Fall Qualifiers: Encounter type: initial encounter Qualified Code(s): W19.XXXA - Unspecified fall, initial encounter <Tiffanie Aiken MD - Last Filed: 04/07/23 17:41> Patient Disposition: Home w/ Parent or Adult <Tiffanie Aiken MD - Last Filed: 04/07/23 17:41> Condition: Unchanged <Tiffanie Aiken MD - Last Filed: 04/07/23 17:41> Additional Instructions: Return to the emergency room as needed. Laboratory values were normal with a hemoglobin of 13.8, normal electrolyte panel. Urinalysis shows no evidence of a UTI. You have tested negative for COVID/influenza/RSV. <Tiffanie Aiken MD - Last Filed: 04/07/23 17:41> Prescriptions: No Action tamsulosin 0.4 mg capsule 0.4 mg PO DAILY@1300 memantine 10 mg tablet 10 mg PO BID venlafaxine 37.5 mg capsule,extended release 24hr 37.5 mg PO DAILY donepezil 10 mg tablet 10 mg PO HS acetaminophen 500 mg capsule 1,000 mg PO TID melatonin 5 mg tablet 5 mg PO QHS potassium citrate 99 mg capsule 99 mg PO BID amlodipine 2.5 mg tablet 2.5 mg PO DAILY oxybutynin chloride 5 mg tablet 2.5 mg PO BID tramadol 50 mg tablet 25 - 50 mg PO 3XD PRN Fish Oil 1,600-500-800 mg/5 mL liquid 5 ml PO DAILY multivitamin [Daily Multi-Vitamin] Tablet 1 tab PO DAILY sennosides [Patti-jose] 8.6 mg tablet 8.6 mg PO QHS cholecalciferol (vitamin D3) 50 mcg (2,000 unit) capsule 50 mcg PO DAILY Methylcobalamin 1,000 mcg 1,000 mcg PO DAILY grape seed extract 50 mg capsule 50 mg PO DAILY Rx Instructions: give with food (meal/snack) <Tiffanie Aiken MD - Last Filed: 04/07/23 17:41> Follow Up/Referrals: Luz Medina DO [Staff Physician] - <Tiffanie Aiken MD - Last Filed: 04/07/23 17:41> Stand Alone Forms: My[facility] Info Instructions <Tiffanie Aiken MD - Last Filed: 04/07/23 17:41>
[2023-04-07 16:21] VITALS: BP 147/71; PULSE 43; RESP 16; TEMP 36.8; O2SAT 92
--- NOTE | 2023-04-07 16:25 | CRLHL7_ITS ---
For Patients: As a result of the Century Cures Act, medical imaging exams and procedure reports are released immediately into your electronic medical record. You may view this report before your referring provider. If you have questions, please contact your health care provider. INDICATION: Low back pain. TECHNIQUE: Non-contrast axial CT of the lumbar spine with coronal and sagittal reconstructions. No comparisons. FINDINGS: Mild grade 1 anterolisthesis of L4 on 5. Postoperative change compatible with anterior/posterior L4-5 fusion with solid bony fusion. The overall stature and alignment within the remainder of the lumbar spine is within normal limits. No evidence of bony fragments narrowing the central canal or visualized neural foramina. Mild to moderate scattered degenerative change of the lumbar spine. IMPRESSION: 1. No radiographic evidence of acute osseous injury. 2. [id number] scattered degenerative changes of the lumbar spine. Dictated by Jae Giron MD @ 04/07/2023 5:24:20 PM Please note that all CT scans at this facility use dose modulation, iterative reconstruction, and/or weight-based dosing when appropriate to reduce radiation dose to as low as reasonably achievable. Dictated by: Jae Giron MD @ 04/07/2023 17:24:30 (Electronically Signed)
[2023-04-07 16:30] VITALS: O2SAT 95
[2023-04-07] MEDS: 0.9 % SODIUM CHLORIDE 500 ML 500 ML IV (17:30)
[2023-04-07 17:32] LABS: Lactate* 1.4 mmol/L (0.5-1.9)
[2023-04-07 17:35] LABS: Basophils Absolute Auto 0.01 K/uL (0.00-0.30); Basophils Percent Auto 0.2 % (0.0-3.0); Eosinophils Absolute Auto 0.27 K/uL (0.00-0.50); Eosinophils Percent Auto 4.7 % (0.0-7.0); Hemoglobin* 13.8 gm/dL (13.5-17.5); Immature Granulocytes Abs Auto 0.02 K/uL (0.00-0.30); Immature Granulocytes Pct Auto 0.3 %; Lymphocytes Absolute Auto 1.75 K/uL (0.90-2.90); Lymphocytes Percent Auto 30.2 % (20-44); Mean Corpuscular HGB Conc 32 gm/dL (32-36); Mean Corpuscular Hemoglobin 32 pg (26-34); Mean Corpuscular Volume 99 fL (80-100); Monocytes Percent Auto 14.3 % (0.0-11.0); Neutrophils Absolute Auto 2.91 K/uL (1.7-7.0); Neutrophils Percent Auto 50.3 % (42.0-72.0); Platelet Count* 203 K/uL (140-440); RDW Coefficient of Variation % 12.3 % (11.5-15.5); Red Blood Count 4.33 m/uL (4.30-5.90); White Blood Count* 5.79 K/uL (4.50-11.00)
[2023-04-07 17:47] LABS: Albumin* 3.9 g/dL (3.3-5.0); Chloride* 108 mmol/L (96-114); Potassium* 4.3 mmol/L (3.6-5.1); Sodium* 141 mmol/L (135-149)
[2023-04-07 17:50] LABS: Alanine Aminotransferase* 18 U/L (4-50); Alkaline Phosphatase* 36 U/L (40-150); Anion Gap 7 mEq/L (7-15); Aspartate Amino Transferase* 24 U/L (12-35); Bilirubin Total* 0.3 mg/dL (0.1-1.5); Blood Urea Nitrogen* 19 mg/dL (7-30); Calcium* 9.8 mg/dL (8.4-10.6); Carbon Dioxide* 26 mmol/L (20-32); Creatinine* 1.3 mg/dL (0.5-1.5); Estimated Glomerular Filt Rate 54 ml/min; Glucose* 77 mg/dL (60-115); Total Protein* 6.6 g/dL (6.0-8.3)
[2023-04-07 17:54] LABS: Slide Review Reflex No
[2023-04-07] MEDS: ACETAMINOPHEN 500 MG TABLET 1000 MG PO (18:00)
[2023-04-07 18:08] VITALS: BP 175/98; RESP 18; O2SAT 95
[2023-04-07 18:08] LABS: Appearance Urine Clear (Clear); Bilirubin Urine Negative (Negative); Blood Urine Negative (Negative); Color Urine Yellow (Yellow); Glucose Urine Negative (Negative); Ketones Urine Negative (Negative); Leukocyte Esterase Urine Negative (Negative); Nitrite Urine Negative (Negative); Protein Urine Negative (Negative); Specific Gravity Urine 1.015 (1.000-1.030); Urobilinogen Urine 0.2 (0.2-1.0); pH Urine 6.5 (5.0-8.5)
[2023-04-07 18:13] LABS: PCR FLU A Negative PCR FLU A (Negative); PCR FLU B Negative PCR FLU B (Negative); PCR RSV Negative PCR RSV (Negative); SARS PCR* Negative SARS-CoV-2 (Negative)
[2023-04-07 19:23] LABS: RBC Urine 0-2 (0-2); WBC Urine 0-2 (0-5)
== END 2023-04-07 19:50 | disposition home or self-care (01) ==
PROVIDERS: Family Medicine; Emergency Provider Family Medicine; PCP Student in an Organized Health Care Education/Training Program
DX: R00.1 Bradycardia, unspecified (principal); M54.50 Low back pain, unspecified; W18.30XA Fall on same level, unspecified, initial encounter
CPT/HCPCS: 36415; 70450; 72125; 72131; 80053; 81001; 83605; 85025; 87631; 93005; 94761; 96360; 99284; A9270; J7030

== ENCOUNTER 2024-01-29 21:33 | Outpatient (CLI) | payer MEDICARE, BC, SELFPAY ==
--- OUTSIDE RECORDS SUMMARY | 2024-02-03 02:27 | XMS_ITS | Encounter Summary ---
Author Organization [facility] Address [facility] [place] [address] Care Team Providers Care Wardrobe Supervisor Name Role Phone Brandan Griffin MD Primary Care Provider [phone] Encounter Details Date Type Department Care Team (Late st Contact Info) Description 08/18/2017 [facility] [address] [place] [id number] Reji Michael MD [facility] [address], [place] [id number] Pre-operative laboratory examination (Primary Dx) Social History Tobacco Use Types Packs/Day Years Used Date Smoking Tobacco: Never Alcohol Use Standard Drinks/Week Comments Yes 0 (1 standard drink = 0.6 oz pur e alcohol) Sex and Gender Information Value Date Recorded Sex Assigned at Not on file 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 Gender Identity Not on file Sexual Orientation Not on file documented as of this encounter Plan of Treatment Not on file documented as of this encounter Visit Diagnoses Diagnosis Pre-operative laboratory examination- Primary Pre-procedural laboratory examination documented in this encounter Additional Health Concerns Infection Onset Date Last Indicated Resolved Time 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
--- OUTSIDE RECORDS SUMMARY | 2024-02-03 02:27 | XMS_ITS | Clinical Summary ---
Author Organization [facility] Address [address] [place] [address] Care Team Providers Care Music Agent Name Role Phone Found, No Pcp MD [...] for each transition of care or referral. [facility] Allergies No known active allergies [...] Take 1 Tablet by mouth. 02/03/2014 Active [place]-3 (AKA FISH OIL) 1000 MG capsule Take [...] age to complete this topic Care Teams Music Agent Relationship Specialty Start Date End Date Found, No Pcp, [address] [place] [address] PCP - General 11/30/19
--- OUTSIDE RECORDS SUMMARY | 2024-02-03 02:27 | XMS_ITS | Encounter Summary ---
Author Organization [facility] Address [address], [place] [address] Care Team Providers Care Cotton Dispatcher Name Role Phone Found, No Pcp MD Primary Care Provider Unavailab le Encounter Details Date Type Department Care Team (Late st Contact Info) Description 08/03/2018 Lab Requisition [facility] [address] [facility] [place], [place] [address] Kvng Boyle MD [address] [place] [address] Spinal stenosis; Essential (primary) hypertension Social History [...] - 145 mmol/L 08/04/2018 11:30 AM CDT [facility] Potassium 4.2 3.5 - 5.1 mmol/L 08/04/2018 11:30 AM CDT [facility] Chloride 103 98 - 109 mmol/L 08/04/2018 11:30 AM CDT [facility] CO2 26 20 - 29 mmol/L 08/04/2018 11:30 AM CDT [facility] Anion Gap 9 7 - 16 mmol/L 08/04/2018 11:30 AM CDT [facility] Calcium 10.3 8.4 - 10.4 mg/dL 08/04/2018 11:30 AM CDT [facility] BUN 14 7 - 26 mg/dL 08/04/2018 11:30 AM CDT [facility] Creatinine 1.06 0.73 - 1.18 mg/dL 08/04/2018 11:30 AM CDT [facility] GFR, Estimated >60 >60 mL/min/1.7 3m2 08/04/2018 11:30 AM CDT [facility] GFR, Est If >60 >60 mL/min/1.7 3m2 08/04/2018 11:30 AM CDT [facility] Albumin 3.3(L) 3.5 - 5.0 g/dL 08/04/2018 11:30 AM CDT [facility] Phosphorus 3.3 2.3 - 4.7 mg/dL 08/04/2018 11:30 AM CDT [facility] Glucose 159(H) 70 - 100 mg/dL 08/04/2018 11:30 AM CDT [facility] Comment:The given reference range is for the fasting state. Non-fasting reference range for glucose is 70 - 180 mg/dL. Hours Fasting Unknown 08/04/2018 11:30 AM CDT [facility] Blood Venipuncture / Unknown 08/04/2018 9:09 AM CDT 08/04/2018 11:13 AM CDT Kvng Boyle MD [facility]1 [facility] [address] * (ABNORMAL) Complete Blood Count-No Diff (08/04/2018 9:09 AM CDT) WBC 9.3 3.5 - 10.5 x10(9)/L 08/04/2018 11:21 AM CDT [facility] RBC 4.17(L) 4.32 - 5.72 x10(12)/L 08/04/2018 11:21 AM CDT [facility] Hemoglobin 13.0(L) 13.5 - 17.5 g/dL 08/04/2018 11:21 AM CDT [facility] HCT 41.5 38.8 - 50.0 % 08/04/2018 11:21 AM CDT [facility] MCV 99.5 80.0 - 100.0 fL 08/04/2018 11:21 AM CDT [facility] MCH 31.2 27.6 - 33.3 pg 08/04/2018 11:21 AM CDT [facility] MCHC 31.3(L) 31.5 - 35.2 g/dL 08/04/2018 11:21 AM CDT [facility] RDW 12.6 11.9 - 15.5 % 08/04/2018 11:21 AM CDT [facility] Platelets 312 150 - 450 x10(9)/L 08/04/2018 11:21 AM CDT [facility] Automated NRBC 0 <=0 /100 WBC 08/04/2018 11:21 AM CDT [facility] Blood Venipuncture / Unknown 08/04/2018 9:09 AM CDT 08/04/2018 11:12 AM CDT Kvng Boyle MD [facility] [address] [place] [address], [facility] documented in this encounter Visit Diagnoses Diagnosis Spinal stenosis Spinal stenosis, unspecified region other than cervical Essential (primary) hypertension (HRC) Unspecified essential hypertension documented in this encounter Care Teams Cotton Dispatcher Relationship Specialty Start Date End Date Found, No Pcp, [place] [address] PCP - General 11/30/19 documented as of this encounter
--- OUTSIDE RECORDS SUMMARY | 2024-02-03 02:27 | XMS_ITS | Clinical Summary ---
Author Organization [place] Address [address] [place] [address]. 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 Gender Identity Not on file Sexual Orientation Not on file Last Filed Vital Signs Vital Sign Reading Time Taken Comments Blood Pressure 139/82 09/27/2020 12:50 PM CDT Pulse 89 09/27/2020 12:50 PM CDT Temperature 36.2 C (97.2 F) 09/27/2020 12:50 PM CDT Respiratory Rate 16 09/27/2020 12:50 PM CDT Oxygen Saturation 98% 09/27/2020 12:50 PM CDT Inhaled Oxygen Concentration - - Weight 86.2 kg (190 lb) 09/27/2020 12:50 PM CDT Height 180.3 cm (5' 11) 09/27/2020 12:50 PM CDT Body Mass Index 26.5 09/27/2020 12:50 PM CDT Plan of Treatment Not on file Medical Devices Implanted Type Area Dock Grader Device Identifier Shelf Expiration Date Model / Serial / Lot Imp Scr Bone Can Joseluis 6.5x30mm [id number] Implanted:Qty: 1 on 09/08/2017 by Reji Michael MD at [facility] Metallic Hardware/An chor Left: Hip [employer] 12/14/2024 [id number] / / [id number] Imp Scr Bone Can Joseluis 6.5x30mm [id number] Implanted:Qty: 1 on 09/08/2017 by Reji Michael MD at [facility] Metallic Hardware/An chor Left: Hip [employer] 05/15/2027 [id number] / / [id number] Imp Cup Joseluis [place] 64mm [id number] Implanted:Qty: 1 on 09/08/2017 by Reji Michael MD at [facility] Total Joint Component/I nsert Left: Hip [employer] 02/13/2027 [id number] / / [id number] Imp Stem Fem Hip Depuy Arco Tpr Sz 8 Hi Off 1570-11-150 Implanted:Qty: 1 on 09/08/2017 by Reji Michael MD at [facility] Total Joint Component/I nsert Left: Hip [employer] 05/15/2027 1570-11-150 / / [id number] Imp Head Femoral Depuy 36mm +5 [id number] Implanted:Qty: 1 on 09/08/2017 by Reji Michael MD at [facility] Total Joint Component/I nsert Left: Hip [employer] 01/14/2022 [id number] / / [id number] [place] Altrx Acetabular Liner +4 10 Degree 36mm Id / 64mm Od Implanted:Qty: 1 on 09/08/2017 by Reji Michael MD at [facility] Left: Hip Depuy 02/13/2021 [id number] / / [id number] Additional Health Concerns Infection Onset Date Last Indicated MRSA 08/18/2017 08/18/2017 Insurance MEDICARE [facility] MEDICARE SUPPLEMENT Advance Directives For more information, please contact: [phone] Documents on File Type Date Recorded Patient Elementary Math Tutor Expl anation Advance Directives and Living Will [...] Agents on File Name Relationship Healthcare Agent Gamanh rené Communication Rachael Perez Spouse Health Care Agent Care Teams Product Marketing Coordinator Relationship Specialty Start Date End Date Brandan Griffin MD [address] [place] [address] PCP - General Internal Medicine 07/19/14
--- OUTSIDE RECORDS SUMMARY | 2024-02-03 02:27 | XMS_ITS | Clinical Summary ---
Author Organization [facility] Address [place], [place] [address] Care Team Providers Care Orchestra Conductor Name Role Phone Joey Ribeiro MD Unavailable Marla Medina DO Primary Care Provider [facility] Care, Muriel Unavailable Allergies Active [...] by mouth once daily. 0 9 Active Fobnt-4-GDI-EPA-Fi sh Oil 1,000 mg (120 mg-180 mg) [...] ADMITTED DUE LACK OF A TERMINAL PROGNOSIS. [facility] Physician Note Verification of Hospice Diagnosis Rene Perez Date of : 1940 Primary Terminal Diagnosis: Alzheimer disease, late onset Rene Perez is a 83 y.o. male with a history of Alzheimer's disease confirmed by MRI of the brain in June 2022. Rene Perez is NOT terminally ill due to the above listed diagnoses, discussed 05/21/23 with Víctor Hastings RN, [facility] with progressive cognitive decline, PPS= 50% [...] 1 TABLET(10 MG) BY MOUTH TWICE DAILY Ntdhr-8-FDK-EPA-Fish Oil 1,000 mg (120 mg-180 mg) cap [...] DAY WITH A MEAL Howard Cole MD [facility] Reji Cole [...] 01/08/18 PABLITO Zaidi Advance Care Planning Educator [phone] History of total hip arthroplasty, left 09/09/19 [...] Encounters Date Type Department Care Team Description 01/31/2024 Orders Only [facility] Scanner 1 scan: (1-Ord) [facility], SHOULDER LT MIN 2V, 01/31/2024 2024 Orders Only [facility] Scanner 1 scan: (1-Ord) [facility], CT CERVICAL SPINE, 2024 2024 Orders Only [facility] Scanner 1 scan: (1-Ord) [place], CT CHEST ABDOMEN PELV W CON, 2024 2024 Orders Only [facility] Scanner 1 scan: (1-Ord) [facility], HEAD/BRAIN WO CON , 2024 12/27/2023 Refill [facility] [address] [place] [address] Marla Medina, DO Refill Request (Memantine) 12/23/2023 Refill [facility] [address] [place] [address] Marla Medina, DO Refill Request (Memantine) 12/07/2023 Refill [facility] [address] [place] [address] Marla Medina, Refill Request (Venlafaxine, Cetirizine) 11/21/2023 12:25 PM CDT Office Visit [facility] [address] [facility] [address] Marla Medina, Concerns (Continuing diarrhea /Weakness - difficulty moving around - stiffness in bilateral legs) 11/21/2023 Travel 11/14/2023 Refill [facility] [address] [facility] [address] Marla Medina DO Refill Request (Tamsulosin) 11/10/2023 Telephone [facility] [address] [place] [address] Marla Medina, Questions from Last 3 Months Immunizations Name Administration Dates Next Due COVID-19 vaccine ([employer] NTFree All Media 30mcg/0.3mL) 12YO+ SCOTT-SUCROSE PF, MDV 10/02/2021 COVID-19 vaccine ([employer]-BioNTFree All Media 30mcg/0.3mL) P F, MDV 05/13/2020,04/22/2020 Influenza A [...] 53 11/21/2023 12:44 PM CDT Temperature 36.9 C (98.5 F) 05/21/2023 1:48 PM PRINT LINE SUPERVISOR Respiratory Rate 15 05/21/2023 1:48 PM PRINT LINE SUPERVISOR Oxygen Saturation 97% 11/21/2023 12: 44 PM [...] Procedure Name Priority Date/Time Associated Diagnosis Comments SCAN-RADIOLOGY REPORT 01/31/2024 12:00 AM PRINT LINE SUPERVISOR SCAN-CT INTERPRETATION 4 12:00 AM PRINT LINE SUPERVISOR SCAN-CT INTERPRETATION 4 12:00 AM PRINT LINE SUPERVISOR SCAN-CT INTERPRETATION 4 12:00 AM PRINT LINE SUPERVISOR BASIC METABOLIC PANEL Routine 11/21/2023 1:41 PM CDT Medicare annual wellness visit, subsequent from Last 3 Months Results * SCAN-RADIOLOGY REPORT (01/31/2024 12:00 AM PRINT LINE SUPERVISOR) Anatomical Region Laterality Modality Other Scanner OTHER * SCAN-CT INTERPRETATION (2024 12:00 AM PRINT LINE SUPERVISOR) Only the most recent of3 resultswithin the time period is included. Anatomical Region Laterality Modality Other Scanner OTHER * (ABNORMAL) BASIC METABOLIC PANEL (11/21/2023 1:41 PM CDT) SODIUM 142 136 - 145 mmol/L 11/21/2023 11:32 PM CDT [facility] POTASSIUM 4.3 3.5 - 5.1 mmol/L 11/21/2023 11:32 PM CDT [facility] CHLORIDE 107 98 - 107 mmol/L 11/21/2023 11:32 PM CDT [facility] CO2,TOTAL 22 22 - 29 mmol/L 11/21/2023 11:32 PM CDT [facility] ANION GAP 13 5 - 18 11/21/2023 11:32 PM CDT [facility] GLUCOSE 99 70 - 99 mg/dL 11/21/2023 11:32 PM CDT [facility] CALCIUM 9.8 8.8 - 10.2 mg/dL 11/21/2023 11:32 PM CDT [facility] BUN 21 8 - 23 mg/dL 11/21/2023 11:32 PM T [facility] CREATININE 1.50(H) 0.70 - 1.20 mg/dL 11/21/2023 11:32 PM CDT [facility] BUN/CREAT RATIO 14 10 - 20 11:32 PM CDT [facility] eGFR 45(L) >90 mL/min/1.7 3m2 11/21/2023 11:32 PM CDT [facility] Comment:As of 2021, eG FR is calculated by the CKD-EPI creatinine equation without race adjustment. eGFR can be influenced by muscle mass, exercise, and diet. The reported eGFR is an estimation only and is only applicable if the renal function is stable. Blood BLOOD SPECIMEN / Unknown Butterfly / Unknown 11/21/2023 1:41 PM CDT 11/21/2023 1:43 PM CDT Taramontserrat Crisostomojennifer AMAYA CHEMISTRY [facility] [address] [place] [address], from Last 3 Months Advance Directives Documents on File Type Date Recorded Patient Director Of Front Office Expl anation Treatment Guidelines 01/20/2024 [facility]ST 03/25/2023 11:00 AM Healthcare Directive 01/15/2018 10:00 AM 1 * Full Code (Latest Code Status on File) Date Activated Date Inactivated Comments 08/06/2017 5:48 AM 08/06/2017 4:11 PM * Full Code Date Activated Date Inactivated Comments 08/17/2006 5:10 PM 08/19/2006 1:10 PM Care Teams Orchestra Conductor Relationship Specialty Start Date End Date Marla Medina DO [address] [place] [address] PCP - General Family Practice 10/23/21 Joey Ribeiro MD Urology Surgery - Urology 11/28/[address] [address] 05/16/23
--- OUTSIDE RECORDS SUMMARY | 2024-02-03 02:27 | XMS_ITS | Encounter Summary ---
Author Organization [place] Address [address] [facility] [address] Care Team Providers Care Boot Lace Cutter Machine Name Role Phone Brandan Griffin MD Primary Care Provider [phone] Encounter Details Date Type Department Care Team (Late st Contact Info) Description 08/15/2017 Orders Only [facility] [address] [facility] [place] [address] Reji Michael MD [facility] [address] [place] [address] Pre-operative laboratory examination (Primary Dx) Social History Tobacco Use Types Packs/Day Years Used Date Smoking Tobacco: Never Alcohol Use Standard Drinks/Week Comments Yes 0 (1 standard drink = 0.6 oz pur e alcohol) Sex and Gender Information Value Date Recorded Sex Assigned at Not on file 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 aureus PCR (08/18/2017 12:00 PM CDT) Specimen Description Opal 08/18/2017 4:04 PM CDT [facility] Methicillin Resist/Sens S. 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 A positive test does not necessarily indicate the presence of viable organisms. It is,however, presumptive for the presence of MRSA or SA. FDA approved assay performed using [employer] GeneXpert(R) real-time PCR. Nasal structure (body structure) 08/18/2017 12:00 PM CDT 08/18/2017 4:05 PM CDT us Reji Michael MD LAB - MICRO GENERAL ORDERABLE S Final Result [facility] [address] [place], [place] [id number] [place] [address] [address] [place], [place] [address] [phone] documented in this encounter Visit Diagnoses Diagnosis Pre-operative laboratory examination- Primary Pre-procedural laboratory examination documented in this encounter Additional Health Concerns Infection Onset Date Last Indicated Resolved Time MRSA 08/18/2017 08/18/2017 documented as of this encounter Care Teams Boot Lace Cutter Machine Relationship Specialty Start Date End Date Brandan Griffin MD [address] [place] [address] PCP - General Internal Medicine 07/19/14 documented as of this encounter
--- OUTSIDE RECORDS SUMMARY | 2024-02-03 02:27 | XMS_ITS | Referral Summary ---
Author Organization [place] Address [facility] 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 Metallic Hardware/An chor Left: Hip [employer] 12/14/2024 [id number] / / [id number] Imp Scr Bone Can Joseluis 6.5x30mm [id number] Implanted:Qty: 1 on 09/08/2017 by Reji Michael MD at [facility] Metallic Hardware/An chor Left: Hip [employer] 05/15/2027 [id number] / / [id number] Imp Cup Joseluis [place] 64mm [id number] Implanted:Qty: 1 on 09/08/2017 by Reji Michael MD at [facility] Total Joint Component/I nsert Left: Hip [employer] 02/13/2027 [id number] / / [id number] Imp Stem Fem Hip Depuy [place] Tpr Sz 8 Hi Off 1570-11-150 Implanted:Qty: 1 on 09/08/2017 by Reji Michael MD at [facility] Total Joint Component/I nsert Left: Hip [employer] 05/15/2027 1570-11-150 / / [id number] Imp Head Femoral Depuy 36mm +5 1365-52-000 Implanted:Qty: 1 on 09/08/2017 by Reji Michael MD at [facility] Total Joint Component/I nsert Left: Hip [employer]- 01/14/2022 [id number] / / [id number] [place] Altrx Acetabular Liner +4 10 Degree 36mm Id / 64mm Od Implanted:Qty: 1 on 09/08/2017 by Reji Michael MD at [facility] Left: Hip Depuy 02/13/2021 1221-36-164 / / [id number] Additional Health Concerns Infection Onset Date Last Indicated MRSA 08/18/2017 08/18/2017 Insurance MEDICARE [facility] MEDICARE SUPPLEMENT Advance Directives For more information, please contact: [phone] Documents on File Type Date Recorded Patient Torpedo Worker Expl anation Advance Directives and Living Will [...] Perez Spouse Health Care Agent Care Teams Recruiting Operations Consultant Relationship Specialty Start Date End Date Brandan Griffin MD [address] [place] [address] PCP - General Internal Medicine 07/19/14
== END 2024-01-29 21:34 | disposition home or self-care (01) ==
LOC: AMB 02-03 02:25
PROVIDERS: PCP Student in an Organized Health Care Education/Training Program; Visit Provider Student in an Organized Health Care Education/Training Program
DX: S29.9XXA Unspecified injury of thorax, initial encounter (principal); W18.30XA Fall on same level, unspecified, initial encounter; Y92.038 Other place in apartment as the place of occurrence of the external cause
CPT/HCPCS: A0425; A0427

== ENCOUNTER 2024-01-29 22:05 | Observation (INO) | payer MEDICARE, BC, SELFPAY ==
--- OUTSIDE RECORDS SUMMARY | 2024-01-29 22:07 | XMS_ITS | Encounter Summary ---
Author Organization [facility] Address [address], [place] [address] Care Team Providers Care Crystal Flat Grinder Name Role Phone Found, No Pcp MD Primary Care Provider Unavailab le Encounter Details Date Type Department Care Team (Late st Contact Info) Description 08/03/2018 Lab Requisition [facility] [address] [facility] [place], [place] [address] Kvng Boyle MD [address] [place] [address] Spinal stenosis; Essential (primary) hypertension Social History Tobacco Use Types Packs/Day Years Used Date Smoking Tobacco: Never Assessed Sex and Gender Information Value Date Recorded Sex Assigned at Not on file Gender Identity Not on file Sexual Orientation Not on file documented as of this encounter Plan of Treatment Not on file documented as of this encounter Procedures Procedure Name Priority Date/Time Associated Diagnosis Comments RENAL FUNCTION PANEL Routine 08/04/2018 9:09 AM CDT Spinal stenosis Essential (primary) hypertension (HRC) COMPLETE BLOOD COUNT-NO DIFF Routine 08/04/2018 9:09 AM CDT Spinal stenosis Essential (primary) hypertension (HRC) documented in this encounter Results * (ABNORMAL) Renal Function Panel (08/04/2018 9:09 AM CDT) Sodium 138 136 - 145 mmol/L 08/04/2018 11:30 AM CDT [facility] Potassium 4.2 3.5 - 5.1 mmol/L 08/04/2018 11:30 AM CDT [facility] Chloride 103 98 - 109 mmol/L 08/04/2018 11:30 AM CDT [facility] CO2 26 20 - 29 mmol/L 08/04/2018 11:30 AM CDT [facility] Anion Gap 9 7 - 16 mmol/L 08/04/2018 11:30 AM CDT [facility] Calcium 10.3 8.4 - 10.4 mg/dL 08/04/2018 11:30 AM CDT [facility] BUN 14 7 - 26 mg/dL 08/04/2018 11:30 AM CDT [facility] Creatinine 1.06 0.73 - 1.18 mg/dL 08/04/2018 11:30 AM CDT [facility] GFR, Estimated >60 >60 mL/min/1.7 3m2 08/04/2018 11:30 AM CDT [facility] GFR, Est If >60 >60 mL/min/1.7 3m2 08/04/2018 11:30 AM CDT [facility] Albumin 3.3(L) 3.5 - 5.0 g/dL 08/04/2018 11:30 AM CDT [facility] Phosphorus 3.3 2.3 - 4.7 mg/dL 08/04/2018 11:30 AM CDT [facility] Glucose 159(H) 70 - 100 mg/dL 08/04/2018 11:30 AM CDT [facility] Comment:The given reference range is for the fasting state. Non-fasting reference range for glucose is 70 - 180 mg/dL. Hours Fasting Unknown 08/04/2018 11:30 AM CDT [facility] Blood Venipuncture / Unknown 08/04/2018 9:09 AM CDT 08/04/2018 11:13 AM CDT Kvng Boyle MD LAB_1 [facility] [address] * (ABNORMAL) Complete Blood Count-No Diff (08/04/2018 9:09 AM CDT) WBC 9.3 3.5 - 10.5 x10(9)/L 08/04/2018 11:21 AM CDT [facility] RBC 4.17(L) 4.32 - 5.72 x10(12)/L 08/04/2018 11:21 AM CDT [facility] Hemoglobin 13.0(L) 13.5 - 17.5 g/dL 08/04/2018 11:21 AM CDT [facility] HCT 41.5 38.8 - 50.0 % 08/04/2018 11:21 AM CDT [facility] MCV 99.5 80.0 - 100.0 fL 08/04/2018 11:21 AM CDT [facility] MCH 31.2 27.6 - 33.3 pg 08/04/2018 11:21 AM CDT [facility] MCHC 31.3(L) 31.5 - 35.2 g/dL 08/04/2018 11:21 AM CDT [facility] RDW 12.6 11.9 - 15.5 % 08/04/2018 11:21 AM CDT [facility] Platelets 312 150 - 450 x10(9)/L 08/04/2018 11:21 AM CDT [facility] Automated NRBC 0 <=0 /100 WBC 08/04/2018 11:21 AM CDT [facility] Blood Venipuncture / Unknown 08/04/2018 9:09 AM CDT 08/04/2018 11:12 AM CDT Kvng Boyle MD LAB_1 [facility] [address] [place] [address], [facility] documented in this encounter Visit Diagnoses Diagnosis Spinal stenosis Spinal stenosis, unspecified region other than cervical Essential (primary) hypertension (HRC) Unspecified essential hypertension documented in this encounter Care Teams Crystal Flat Grinder Relationship Specialty Start Date End Date Found, No Pcp, [place] [address] PCP - General 11/30/19 documented as of this encounter
--- OUTSIDE RECORDS SUMMARY | 2024-01-29 22:07 | XMS_ITS | Encounter Summary ---
Author Organization [facility] Address [address] [facility] [address] Care Team Providers Care Sand Technologist Name Role Phone Brandan Griffin MD Primary Care Provider [phone] Encounter Details Date Type Department Care Team (Late st Contact Info) Description 08/15/2017 Orders Only [facility] [address] [facility] [place] [address] Reji Michael MD [facility] [address] [place] [address] Pre-operative laboratory examination (Primary Dx) Social History Tobacco Use Types Packs/Day Years Used Date Smoking Tobacco: Never Alcohol Use Standard Drinks/Week Comments Yes 0 (1 standard drink = 0.6 oz pur e alcohol) Sex and Gender Information Value Date Recorded Sex Assigned at Not on file 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 aureus PCR (08/18/2017 12:00 PM CDT) Specimen Description Opal 08/18/2017 4:04 PM CDT [facility] Methicillin Resist/Sens S. 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 A positive test does not necessarily indicate the presence of viable organisms. It is,however, presumptive for the presence of MRSA or SA. FDA approved assay performed using [employer] GeneXpert(R) real-time PCR. Nasal structure (body structure) 08/18/2017 12:00 PM CDT 08/18/2017 4:05 PM CDT us Reji Michael MD LAB - MICRO GENERAL ORDERABLE S Final Result [facility] [address] [place], [place] [id number] [place] [address] Soni Joel [place], [place] [id number] [place] [address] documented in this encounter Visit Diagnoses Diagnosis Pre-operative laboratory examination- Primary Pre-procedural laboratory examination documented in this encounter Additional Health Concerns Infection Onset Date Last Indicated Resolved Time MRSA 08/18/2017 08/18/2017 documented as of this encounter Care Teams Sand Technologist Relationship Specialty Start Date End Date Brandan Griffin MD [address] [place] [address] PCP - General Internal Medicine 07/19/14 documented as of this encounter
--- OUTSIDE RECORDS SUMMARY | 2024-01-29 22:07 | XMS_ITS | Encounter Summary ---
Author Organization [facility] Address [address] [place] [address] Care Team Providers Care Signs Cleaner Name Role Phone Found, No Pcp Primary Care Provider Unavailab le Encounter Details Date Type Department Care Team (Late st Contact Info) Description 10/04/2020 Lab Requisition [facility] [address] [place], [place] [id number] Salinas Clifford MD [address] [facility] [address] [place], [place] [id number] Encounter for screening for respiratory tuberculosis Social History Tobacco Use Types Packs/Day Years Used Date Smoking Tobacco: Former Alcohol Use Standard Drinks/Week Comments Yes 0 (1 standard drink = 0.6 oz pur e alcohol) glass of wine with dinner Sex and Gender Information Value Date Recorded Sex Assigned at Not on file Gender Identity Not on file Sexual Orientation Not on file documented as of this encounter Plan of Treatment Not on file documented as of this encounter Procedures Procedure Name Priority Date/Time Associated Diagnosis Comments TB QUANTIFERON GOLD PLUS Routine 10/05/2020 2:33 PM CDT Encounter for screening for respiratory tuberculosis TB QUANTIFERON GOLD PLUS MITOGEN Routine 10/05/2020 2:33 PM CDT Encounter for screening for respiratory tuberculosis TB QUANTIFERON GOLD PLUS TB2 Routine 10/05/2020 2:33 PM CDT Encounter for screening for respiratory tuberculosis TB QUANTIFERON GOLD PLUS TB1 Routine 10/05/2020 2:33 PM CDT Encounter for screening for respiratory tuberculosis TB QUANTIFERON GOLD PLUS NIL Routine 10/05/2020 2:33 PM CDT Encounter for screening for respiratory tuberculosis documented in this encounter Results * TB QuantiFERON Gold Plus Mitogen (10/05/2020 2:33 PM CDT) MITOGEN >10.000 IU/mL 10/09/2020 11:14 AM CDT [facility] Blood Venipuncture / Unknown 10/05/2020 2:33 PM CDT 10/05/2020 9:17 PM CDT Salinas Clifford MD LAB_1 Performing Organization Address [facility] Co de Phone Number [facility] [address] [place] [address] * TB QuantiFERON Gold Plus TB2 (10/05/2020 2:33 PM CDT) TB2 0.000 IU/mL 10/09/2020 11:14 AM CDT [facility] Blood Venipuncture / Unknown 10/05/2020 2:33 PM CDT 10/05/2020 9:17 PM CDT Salinas Clifford MD LAB_1 Performing Organization Address [facility] Phone Number [facility] [address] [place] [address] * TB QuantiFERON Gold Plus TB1 (10/05/2020 2:33 PM CDT) TB1 0.189 IU/mL 10/09/2020 11:14 AM CDT [facility] Blood Venipuncture / Unknown 10/05/2020 2:33 PM CDT 10/05/2020 9:17 PM CDT Salinas Clifford MD LAB_1 Performing Organization Address [facility] Co de Phone Number [facility] [address] [place] [address] * TB QuantiFERON Gold Plus NIL (10/05/2020 2:33 PM CDT) [facility] TB QuantiFERON Gold Plus Negative, M. tuberculosis Infection NOT likely Negative, M. tuberculosis Infection NOT likely 10/09/2020 11:22 AM CDT [facility] NIL 0.000 IU/mL 10/09/2020 11:22 AM CDT [facility] TB1-NIL 0.19 IU/mL 10/09/2020 11:22 AM CDT [facility] TB2-NIL 0.00 IU/mL 10/09/2020 11:22 AM CDT [facility] Mitogen-NIL 10.00 IU/mL 10/09/2020 11:22 AM CDT [facility] Blood Venipuncture / Unknown 10/05/2020 2:33 PM CDT 10/05/2020 9:17 PM CDT Narrative [facility] - 10/09/2020 11:22 AM CDT Nil ?TB1-Nil ? TB2-Nil ?Mitogen-Nil ??Result ?Interpretation (IU/ml) ??(IU/mL) ? (IU/mL) ?(IU/mL) <=8.0 ? >=0.35 & ? Any ?Any ?Positive ?M. tuberculosis ?>=25% Nil ?infection likely <=8.0 ? Any ?>=0.35 & ? Any ?Positive ?M. tuberculosis ? >=25% Nil ? infection likely <=8.0 ? <0.35 or ? <0.35 or ? >=0.50 ? Negative ?M. tuberculosis ?>=0.35 & ? >=0.35 & ?infection NOT ?<25% Nil ? <25% Nil ?likely <=8.0 ? <0.35 or ? <0.35 or ? <0.50 ? Indeterminate ??M. tuberculosis ?>=0.35 & ? >=0.35 & ?infection cannot ?<25% Nil ? <25% Nil ?be determined >8.0 ?Any ?Any ?Any ? Indeterminate ??M. tuberculosis ? infection cannot ? be determined. Important: Diagnosing or excluding tuberculosis disease, and assessing the probability of LTBI, requires a combination of epidemiological, historical, medical, and diagnostic findings that should be taken into account when interpreting QFT- Plus results. See general guidance on the diagnosis and treatment of TB disease and LTBI (https://www.cdc.gov/tb/publications/guidelines/default.htm). The magnitude of the measured IFN-gamma level cannot be correlated to stage or degree of infection, level of immune responsiveness, or likelihood for progression to active disease. A positive TB response in persons who are negative to Mitogen is rare, but has been seen in patients with TB disease. This indicates the IFN-gamma response to TB antigens is greater than that to Mitogen, which is possible as the level of Mitogen does not maximally stimulate IFN-gamma production by lymphocytes. Salinas Clifford MD LAB_1 [facility] [address] [place] [address], [facility] documented in this encounter Visit Diagnoses Diagnosis Encounter for screening for respiratory tuberculosis Screening examination for pulmonary tuberculosis documented in this encounter Care Teams Signs Cleaner Relationship Specialty Start Date End Date Found, No Pcp, [address] [place] [address] PCP - General 11/30/19 documented as of this encounter
--- OUTSIDE RECORDS SUMMARY | 2024-01-29 22:07 | XMS_ITS | Clinical Summary ---
Author Organization [facility] Address [address] [place] [address] Care Team Providers Care Zyglo Inspector Name Role Phone Found, No Pcp MD Primary Care Provider Unavailab le Source Comments You are receiving this document as you are listed as the primary care provider,follow-up provider, or the patient has been referred to you for consultation.This is in compliance with the Medicare andMedicaid EHR Incentive Program,which states Providers who transition their patient to another setting of careor provider of care or refers their patient to another provider of care shouldprovide summary care record for each transition of care or referral. [facility] Allergies No known active allergies Medications Medication Sig Dispensed Refills Start Date End Date Status acetaminophen (TYLENOL) 325 MG tablet Take 3 Tablets by mouth. Active Cholecalciferol (VITAMIN D) 50 MCG (2000 UT) tablet Take 2,000 Units by mouth. 11/27/2015 Active donepezil (ARICEPT) 10 MG tablet Take 10 mg by mouth. 11/18/2018 Active lisinopril (ZESTRIL) 10 MG tablet Take 10 mg by mouth. 06/02/2019 Active melatonin 3 MG tablet Take 3 mg by mouth. 03/27/2018 Activ e memantine (NAMENDA) 10 MG tablet Take 10 mg by mouth. 03/01/2019 Active Multiple Vitamin (MULTI-VITAMIN) tablet Take 1 Tablet by mouth. 02/03/2014 Active [place]-3 (AKA FISH OIL) 1000 MG capsule Take 1,000 mg by mouth. 03/27/2018 Active tamsulosin (FLOMAX) 0.4 MG CAPS capsule Take 0.4 mg by mouth. 07/13/2019 Active traMADol (ULTRAM) 50 MG tablet Take 50 mg by mouth. 10/27/2019 Active Turmeric, Curcuma Longa, (CURCUMIN) caps 07/16/2018 Active Grape Seed 100 MG Take by mouth. 03/27/2018 Act alonso escitalopram (LEXAPRO) 10 MG tablet 1/2 tab in AM x 2 weeks; then 1 tab thereafter 30 Tablet 3 11/23/2019 Active Resolved Problems Problem Noted Date Diagnosed Date Resolved Date Aphasia 12/06/2019 01/10/2020 Memory loss 12/06/2019 01/10/2020 Social History Tobacco Use Types Packs/Day Years Used Date Smoking Tobacco: Former Alcohol Use Standard Drinks/Week Comments Yes 0 (1 standard drink = 0.6 oz pur e alcohol) glass of wine with dinner Sex and Gender Information Value Date Recorded Sex Assigned at Not on file Gender Identity Not on file Sexual Orientation Not on file Plan of Treatment Health Maintenance Due Date Last Done Comments Medicare Annual Wellness Visit 1938 Zoster/Shingles (1 of 2) 01/30/1988 RSV (1 - 1-dose 75+ series) 2013 COVID-19 Vaccine (2023-2 5 season) 2023 05/13/2020, 04/22/2020 Influenza (#1) 2023 12/02/2019, 01/10/2010, 02/14/2006 DTaP/Tdap/Td (2 - Tdap) 07/08/2028 07/08/2018 Pneumococcal 65+ Yrs Completed 11/28/2016, 11/28/2011, 01/10/2010 HepA Aged Out No longer eligi ble based on patient's age to complete this topic HepB Aged Out No longer eligi ble based on patient's age to complete this topic Hib Aged Out No longer eligi ble based on patient's age to complete this topic IPV (Polio) Aged Out No longer eligi ble based on patient's age to complete this topic RSV Aged Out No longer eligi ble based on patient's age to complete this topic MCV4 Aged Out No longer eligi ble based on patient's age to complete this topic Care Teams Zyglo Inspector Relationship Specialty Start Date End Date Found, No Pcp, [address] [place] [address] PCP - General 11/30/19
--- OUTSIDE RECORDS SUMMARY | 2024-01-29 22:07 | XMS_ITS | Clinical Summary ---
Author Organization [facility] Address [address] [place] [address]. [place] [address] Care Team Providers Care Manager Night Name Role Phone Brandan Griffin MD Primary Care Provider [phone] Allergies No known active allergies Medications multivitamin, therapeutic with minerals (MULTI-VITAMIN) TABS Take 1 tablet by mouth daily Active Cyanocobalamin (VITAMIN B-12 PO) Take 5,000 mcg by mouth 2 times daily Active Cholecalciferol (VITAMIN D3 PO) Take 2,000 Units by mouth daily Active ketoconazole (NIZORAL) 2 % shampoo Apply topically daily as needed for itching or irritation (scalp) Active Black Pepper-Turmeric (TURMERIC COMPLEX/BLACK PEPPER PO) Take 2 tablets by mouth daily Active POTASSIUM CITRATE PO Take 99 mg by mouth daily Active OMEGA FATTY ACIDS-PHYTOSTERO LS PO Take 2 capsules by mouth daily Contains: Esters, Vit C, Vit E and Q 10 Active Nutritional Supplements (NUTRITIONAL SUPPLEMENT PO) Take 1 capsule by mouth daily Contains: Grapeseed and Skin Extract, Reservatrol, Green Tea, Quercetin, Bilberry and Ginko Active DONEPEZIL HCL PO Take 10 mg by mouth daily Active Memantine HCl (NAMENDA PO) Take 10 mg by mouth 2 times daily Active tamsulosin (FLOMAX) 0.4 MG capsule Take 0.4 mg by mouth daily Active Naproxen Sodium (ALEVE PO) Take 440 mg by mouth 2 times daily (with meals) Active Vit-Fe Fumarate-FA ( MULTIVITAMIN PLUS IRON) 27-0.8 MG TABS per tablet Take 1 tablet by mouth daily Active TURMERIC PO Take 2 tablets by mouth daily Active traMADol (ULTRAM) 50 MG tabletIndication s:History of total hip arthroplasty, left Take 1 tablet (50 mg) by mouth every 6 hours as needed for moderate to severe pain or other (pain control or improvement in physical function. Hold dose for analgesic side effects.) 50 tablet 8 Active acetaminophen (TYLENOL) 325 MG tabletIndication s:History of total hip arthroplasty, left Take 3 tablets (975 mg) by mouth every 8 hours 100 tablet 8 Active mupirocin (BACTROBAN) 2 % nasal ointmentIndicati ons:History of total hip arthroplasty, left [place] 1 g into both nostrils 2 times daily 1 g 8 Active senna-docusate (SENOKOT-S;PERIC OLACE) 8.6-50 MG per tabletIndication s:History of total hip arthroplasty, left Take 1 tablet by mouth 2 times daily 60 tablet 8 Active aspirin 325 MG EC tabletIndication s:History of total hip arthroplasty, left Take 1 tablet (325 mg) by mouth 2 times daily (before meals) 90 tablet 3 8 Active Active Problems Problem Noted Date Diagnosed Date ACP (advance care planning) 09/11/2017 History of total hip arthroplasty, left 09/09/19 16 Nephrolithiasis 07/19/2014 Esophageal reflux Spinal stenosis BPH (benign prostatic hyperplasia) Mild memory disturbance Right bundle branch block Family History Medical History Relation Comments Cancer Mother Relation Status Comments Mother Social History Tobacco Use Types Packs/Day Years Used Date Smoking Tobacco: Former Cigarettes 0.5 25 0 11/27/1968 - 11/27/1993 Pipe Cigars Smokeless Tobacco: Never Alcohol Use Standard Drinks/Week Comments Yes 0 (1 standard drink = 0.6 oz pure alcohol) 7 drinks a week, wine and scotch Adolescent Education Answer Date Record ed Getting School Help Needed Not on file 12/22 Sex and Gender Information Value Date Recorded Sex Assigned at Not on file 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 Gender Identity Not on file Sexual Orientation Not on file Last Filed Vital Signs Vital Sign Reading Time Taken Comments Blood Pressure 139/82 09/27/2020 12:50 PM CDT Pulse 89 09/27/2020 12:50 PM CDT Temperature 36.2 ??C (97.2 ??F) 09/27/2020 12:50 PM C DT Respiratory Rate 16 09/27/2020 12:50 PM CDT Oxygen Saturation 98% 09/27/2020 12:50 PM CDT Inhaled Oxygen Concentration - - Weight 86.2 kg (190 lb) 09/27/2020 12:50 PM CDT Height 180.3 cm (5' 11) 09/27/2020 12:50 PM CDT Body Mass Index 26.5 09/27/2020 12:50 PM CDT Plan of Treatment Not on file Medical Devices Implanted Type Area Fusing Machine Operator Device Identifier Shelf Expiration Date Model / Serial / Lot Imp Scr Bone Can Joseluis 6.5x30mm [id number] Implanted:Qty: 1 on 09/08/2017 by Reji Michael MD at [facility] Metallic Hardware/An chor Left: Hip [employer]- 12/14/2024 [id number] / / [id number] Imp Scr Bone Can Joseluis 6.5x30mm [id number] Implanted:Qty: 1 on 09/08/2017 by Reji Michael MD at [facility] Metallic Hardware/An chor Left: Hip [employer] 05/15/2027 [id number] / / [id number] Imp Cup Joseluis Webster 64mm [id number] Implanted:Qty: 1 on 09/08/2017 by Reji Michael MD at [facility] Total Joint Component/I nsert Left: Hip [employer] 02/13/2027 [id number] / / [id number] Imp Stem Fem Hip Depuy [place] Tpr Sz 8 Hi Off [id number] Implanted:Qty: 1 on 09/08/2017 by Rjei Michael MD at [facility] Total Joint Component/I nsert Left: Hip [employer] 05/15/2027 [id number] / / [id number] Imp Head Femoral Depuy 36mm +5 [id number] Implanted:Qty: 1 on 09/08/2017 by Reji Michael MD at [facility] Total Joint Component/I nsert Left: Hip [employer] 01/14/2022 [id number] / / [id number] Webster Altrx Acetabular Liner +4 10 Degree 36mm Id / 64mm Od Implanted:Qty: 1 on 09/08/2017 by Reji Michael MD at [facility] Left: Hip Depuy 02/13/2021 [id number] / / [id number] Additional Health Concerns Infection Onset Date 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 MEDICARE SUPPLEMENT Advance Directives For more information, please contact: [phone] Documents on File Type Date Recorded Patient Design Lead Expl anation Advance Directives and Living Will 09/09/2017 8:24 AM Health Care Directiv e 01/31/2009 * Full Code (Latest Code Status on File) Date Activated Date Inactivated Comments 09/08/2017 5:17 PM 09/11/2017 7:27 PM * Full Code Date Activated Date Inactivated Comments 07/20/2014 8:50 AM 09/08/2017 5:17 PM * Full Code Date Activated Date Inactivated Comments 07/19/2014 4:17 PM 07/20/2014 8:50 AM Healthcare Agents on File Name Relationship Healthcare Agent [facility] Communication Rachael Perez Spouse Health Care Agent Care Teams Manager Night Relationship Specialty Start Date End Date Brandan Griffin MD [address] [place] [address] PCP - General Internal Medicine 07/19/14
--- OUTSIDE RECORDS SUMMARY | 2024-01-29 22:07 | XMS_ITS | Encounter Summary ---
Author Organization [facility] Address Formerly [facility]0 [facility] [place] [address] Care Team Providers Care Bar Pilot Name Role Phone Brandan Griffin MD Primary Care Provider [phone] Encounter Details Date Type Department Care Team (Late st Contact Info) Description 08/18/2017 [facility] [address] [place] [address] Reji Michael MD [facility] [address] [place], [place] [id number] Pre-operative laboratory examination (Primary Dx) Social History Tobacco Use Types Packs/Day Years Used Date Smoking Tobacco: Never Alcohol Use Standard Drinks/Week Comments Yes 0 (1 standard drink = 0.6 oz pur e alcohol) Sex and Gender Information Value Date Recorded Sex Assigned at Not on file 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 Gender Identity Not on file Sexual Orientation Not on file documented as of this encounter Plan of Treatment Not on file documented as of this encounter Visit Diagnoses Diagnosis Pre-operative laboratory examination- Primary Pre-procedural laboratory examination documented in this encounter Additional Health Concerns Infection Onset Date Last Indicated Resolved Time MRSA 08/18/2017 08/18/2017 documented as of this encounter Care Teams Bar Pilot Relationship Specialty Start Date End Date Brandan Griffin MD [address] [place], [place] [id number] PCP - General Internal Medicine 07/19/14 documented as of this encounter
--- OUTSIDE RECORDS SUMMARY | 2024-01-29 22:07 | XMS_ITS | Clinical Summary ---
Author Organization [employer] ([employer]) [facility] Address [place], [place] [address] Care Team Providers Care Wood Lather Name Role Phone Joey Ribeiro MD Unavailable [phone] Marla Medina DO Primary Care Provider [phone] [facility] Care, Muriel Unavailable Allergies Active Allergy Reactions Criticality Noted Date Comments Escitalopram Insomnia Medium 09/25/2020 Medications Medication Sig Dispensed Refills Start Date End Date Status Cholecalciferol, Vitamin D3, (VITAMIN D-3) 2,000 unit tablet Take 1 tablet by mouth once daily. 0 6 Active medication order composer Take by mouth. Calmicid - Take 1 tablet as needed for acid indigestion 0 6 Active melatonin 3 mg tablet Take 1 tablet by mouth once daily. 0 9 Active Xoczt-9-NUO-EPA-Fi sh Oil 1,000 mg (120 mg-180 mg) cap Take 1 capsule by mouth. 0 9 Active sennosides (SENNA) 8.6 mg tablet PRN 0 9 Active medication order composer Take by mouth. Methylcobalamin daily 0 9 Active medication order composer Take by mouth. Potassium citrate 99mg twice daily 0 9 Active acetaminophen (TYLENOL EXTRA STRGTH) 500 mg tablet Take 1 Tablet (500 mg) by mouth 3 times daily. Max acetaminophen dose: 4000mg in 24 hrs. 0 1 Active lidocaine 5 % topical patchIndications:D egenerative disc disease, lumbar,Spinal stenosis of lumbar region without neurogenic claudication Apply on dry, clean, hairless skin. Apply 1 patch to painful area of skin for up to to 12 hours within 24 hour period. 30 Patch 11 3 Active durable medical equipment (DME)Indications:F unctional assessment declined,Abnormali ty of gait and mobility wheelchair 1 Each 3 Active hydrocortisone 2.5% creamIndications:I rritation of eyelid Apply topically to affected area(s) two times daily. 30 g 3 Active traMADoL (ULTRAM) 50 mg tabletIndications: Lumbar radiculopathy Take 1/2 to 1 tablet up to three times daily. 270 Tablet 4 Active tamsulosin (FLOMAX) 0.4 mg capsuleIndications :BPH without urinary obstruction TAKE 1 CAPSULE BY MOUTH EVERY DAY AFTER MEALS 90 Capsule 1 4 Active psyllium powdIndications:Ch ronic diarrhea Mix 1 tsp in liquid then take by mouth once daily if needed for Constipation. 283 g 11 4 Active venlafaxine (EFFEXOR XR) 37.5 mg Extended-Release capsuleIndications :Depression, unspecified depression type TAKE 1 CAPSULE(37.5 MG) BY MOUTH EVERY DAY WITH A MEAL 90 Capsule 4 Active cetirizine (ZYRTEC) 10 mg tabletIndications: Allergic conjunctivitis of left eye TAKE 1 TABLET(10 MG) BY MOUTH DAILY 30 Tablet 3 4 Active memantine (NAMENDA) 10 mg tabletIndications: Mild memory disturbance TAKE 1 TABLET(10 MG) BY MOUTH TWICE DAILY 180 Tablet 4 Active donepeziL (ARICEPT) 10 mg tabletIndications: Dementia, unspecified dementia severity, unspecified dementia type, unspecified whether behavioral, psychotic, or mood disturbance or anxiety (HC) Take 1 Tablet (10 mg) by mouth at bedtime. 90 Tablet 3 4 Active donepeziL (ARICEPT) 5 mg tabletIndications: Dementia, unspecified dementia severity, unspecified dementia type, unspecified whether behavioral, psychotic, or mood disturbance or anxiety (HC) Take 1 Tablet (5 mg) by mouth at bedtime. 90 Tablet 3 4 01/15/20 24 Discontinu ed(*Medica tion adjustment ) Active Problems Problem Noted Date Diagnosed Date Bradycardia 11/21/2023 Encounter for hospice care discussion 05/21/2023 Overview (05/21/2023): THIS IS A HOSPICE CONSULT. THE PATIENT IS NOT ADMITTED DUE LACK OF A TERMINAL PROGNOSIS. [facility] Physician Note Verification of Hospice Diagnosis Rene Perez Date of : 1940 Primary Terminal Diagnosis: Alzheimer disease, late onset Rene Perez is a 83 y.o. male with a history of Alzheimer's disease confirmed by MRI of the brain in June 2022. Rene Perez is NOT terminally ill due to the above listed diagnoses, discussed 05/21/23 with Víctor Hastings RN, [facility] with progressive cognitive decline, PPS= 50% (from 50% three months ago). The patient has lost weight from 193 to 189 lb over the past 6 months. He has been followed by Home Health for therapies and is no longer eligible because he is not house bound. He has memory loss, and remains verbal and ambulatory. He is incontinent of urine. Víctor DUENAS met with the spouse and daughter. The patient is not eligible for hospice because in his current functional state the prognosis is 2 to 5 years. Past Medical History: . Date Acute sinusitis, unspecified BPH (benign prostatic hyperplasia) Calculus of kidney Degenerative disc disease, lumbar 09/25/2020 Diverticulitis of colon (without mention of hemorrhage)(562.11) Esophageal reflux Nodular prostate with urinary obstruction Osteoarthrosis, unspecified whether generalized or localized, unspecified site Other and unspecified hyperlipidemia Spinal stenosis back Current Outpatient Medications Medication Sig acetaminophen (TYLENOL EXTRA STRGTH) 500 mg tablet Take 1 Tablet (500 mg) by mouth 3 times daily. Max acetaminophen dose: 4000mg in 24 hrs. Cholecalciferol, Vitamin D3, (VITAMIN D-3) 2,000 unit tablet Take 1 tablet by mouth once daily. donepeziL (ARICEPT) 10 mg tablet TAKE 1 TABLET(10 MG) BY MOUTH AT BEDTIME durable medical equipment (DME) wheelchair hydrocortisone 2.5% cream Apply topically to affected area(s) two times daily. ketotifen (ZADITOR) 0.025 % (0.035 %) ophthalmic solution Place 1 Drop into both eyes two times daily. lidocaine 5 % topical patch Apply on dry, clean, hairless skin. Apply 1 patch to painful area of skin for up to to 12 hours within 24 hour period. medication order composer Take by mouth. Methylcobalamin daily medication order composer Take by mouth. Potassium citrate 99mg twice daily medication order composer Take by mouth. Calmicid - Take 1 tablet as needed for acid indigestion melatonin 3 mg tablet Take 1 tablet by mouth once daily. memantine (NAMENDA) 10 mg tablet TAKE 1 TABLET(10 MG) BY MOUTH TWICE DAILY Askec-3-FPN-EPA-Fish Oil 1,000 mg (120 mg-180 mg) cap Take 1 capsule by mouth. sennosides (SENNA) 8.6 mg tablet PRN tamsulosin (FLOMAX) 0.4 mg capsule TAKE 1 CAPSULE BY MOUTH EVERY DAY AFTER MEALS traMADoL (ULTRAM) 50 mg tablet Take 1/2 to 1 tablet up to three times daily. venlafaxine (EFFEXOR XR) 37.5 mg Extended-Release capsule TAKE 1 CAPSULE(37.5 MG) BY MOUTH EVERY DAY WITH A MEAL Howard Cole MD [facility] Reji Cole MD .................... 05/21/2023 8:49 PM Chronic subdural hematoma 01/28/2023 Stage 3a chronic kidney disease 05/02/2022 Depression, recurrent 09/18/2021 Coronary artery disease 08/30/2021 Essential hypertension 08/30/2021 Status post hip replacement, right 10/30/2020 Primary progressive aphasia 09/25/2020 Degenerative disc disease, lumbar 09/25/2020 S/P hip replacement, left 10/10/2017 ACP (advance care planning) 09/11/2017 Overview (08/30/2021): HCD received, see HCD 01/08/18 PABLITO Zaidi Advance Care Planning Educator [phone] History of total hip arthroplasty, left 09/09/19 18 Right bundle branch block 02/27/2017 Dementia 11/27/2015 Assessment & Plan (11/21/2023 1:16 PM CDT): Alzheimer's disease Screening for colon cancer had in 13 with five y ear fu 11/27/2015 Nephrolithiasis 07/19/2014 Lower urinary tract symptoms 04/09/2013 Urinary tract obstruction 04/09/2013 Benign prostatic hyperplasia 11/28/2011 Esophageal reflux 08/17/2006 Spinal stenosis Resolved Problems Problem Noted Date Diagnosed Date Resolved Date Hyperglycemia 08/17/2006 11/28/2011 Overview (08/17/2006): hbgA1c 6.7 down to 5.9% at DM education Encounters Date Type Department Care Team Description 12/27/2023 Refill [facility] [address] [place] [address] Marla Medina DO Refill Request (Memantine) 12/23/2023 Refill [facility] [address] [place] [address] Marla Medina DO Refill Request (Memantine) 12/07/2023 Refill [facility] [address] [place] [address] Marla Medina DO Refill Request (Venlafaxine, Cetirizine) 11/21/2023 12:25 PM CDT Office Visit [facility] [address] [place] [address] Marla Medina DO Concerns (Continuing diarrhea /Weakness - difficulty moving around - stiffness in bilateral legs) 11/21/2023 Travel 11/14/2023 Refill [facility] [address] [place] [address] Marla Medina DO Refill Request (Tamsulosin) 11/10/2023 Telephone [facility] [address] [place] [address] Shaqra, Adei, DO Questions from Last 3 Months Immunizations Name Administration Dates Next Due COVID-19 vaccine ([employer]-Bio NTWebroot 30mcg/0.3mL) 12YO+ SCOTT-SUCROSE PF, MDV 10/02/2021 COVID-19 vaccine ([employer]-BioNTWebroot 30mcg/0.3mL) P F, MDV 05/13/2020,04/22/2020 Influenza A (H1N1), Inactivated 03/23/2009 Influenza, IIV3 (Age >=3 years) 01/10/2010,02/14 Influenza, IIV4 03/23/2009 Influenza, Inactivated AIIV4 (Age 65+ Years) Preserv Free 12/02/2019 Pneumococcal Poly,23-Valent (Pneumovax) 11/28/19 12,01/10/2010 Pneumococcal conj 13-Valent (Prevnar 13) 017 Tdap 07/08/2018 Family History Medical History Relation Name Comments Heart Disease Father 52 Heart Disease Mother age 85 Relation Name Status Comments Father Mother Social History Tobacco Use Types Packs/Day Years Used Date Smoking Tobacco: Former Cigarettes 0.3 25 0 11/27/1968 - 11/27/1993 Smokeless Tobacco: Never Tobacco Cessation:Counseling Given: No Comments:quit . smoked 1/2 ppd since college mainly pipe and cigar Alcohol Use Standard Drinks/Week Comments Yes 5.8 (1 standard drin k = 0.6 oz pure alcohol) wine and scotch sometimes daily PHQ-2 Answer Date Recorded PHQ-2 TOTAL SCORE 3 10/18/2022 Social Connections Answer Date Recorded Do you often feel lonely or isolated from those around you? 0 08/15/2023 Financial Resource Strain Answer Date R ecorded Difficulty of Paying Living Expenses 3 08/15/2023 Difficulty of Paying Living Expenses Not on file 08/15/2023 Food Insecurity Answer Date Recorded Do you worry your food will run out before you are able to buy more? 1 08/15/2023 Transportation Needs Answer Date Record ed Does lack of transportation keep you from medica l appointments? 1 08/15/2023 Does lack of transportation keep you from work, meetings or getting things that you need? 1 08/15/2023 Housing Stability Answer Date Recorded What is your housing situation today? 1 08/15/2023 Sex and Gender Information Value Date Recorded Sex Assigned at Not on file Gender Identity Not on file Sexual Orientation Not on file Obstetrics History Last Filed Vital Signs Vital Sign Reading Time Taken Comments Blood Pressure 106/58 11/21/2023 12:44 PM CDT Pulse 53 11/21/2023 12:44 PM CDT Temperature 36.9 ??C (98.5 ??F) 05/21/2023 1:48 PM CS T Respiratory Rate 15 05/21/2023 1:48 PM DETECTIVE CAPTAIN Oxygen Saturation 97% 11/21/2023 12: 44 PM CDT Inhaled Oxygen Concentration - - Weight 86.5 kg (190 lb 12.8 oz) 024 12:44 PM CDT Height 177 cm (5' 9.7) 10/18/2022 2:41 PM CDT Body Mass Index 27.61 10/18/2022 2:41 PM CDT Plan of Treatment Health Maintenance Due Date Last Done Comments RSV vaccine for adults or pr egnancy (1 - 1-dose 75+ series) 2013 Procedures Procedure Name Priority Date/Time Associated Diagnosis Comments BASIC METABOLIC PANEL Routine 11/21/2023 1:41 PM CDT Medicare annual wellness visit, subsequent from Last 3 Months Results * (ABNORMAL) BASIC METABOLIC PANEL (11/21/2023 1:41 PM CDT) SODIUM 142 136 - 145 mmol/L 11/21/2023 11:32 PM CDT [facility] POTASSIUM 4.3 3.5 - 5.1 mmol/L 11/21/2023 11:32 PM CDT [facility] CHLORIDE 107 98 - 107 mmol/L 11/21/2023 11:32 PM CDT [facility] CO2,TOTAL 22 22 - 29 mmol/L 11/21/2023 11:32 PM CDT [facility] ANION GAP 13 5 - 18 11/21/2023 11:32 PM CDT [facility] GLUCOSE 99 70 - 99 mg/dL 11/21/2023 11:32 PM CDT [facility] CALCIUM 9.8 8.8 - 10.2 mg/dL 11/21/2023 11:32 PM CDT [facility] BUN 21 8 - 23 mg/dL 11/21/2023 11:32 PM CDT [facility] CREATININE 1.50(H) 0.70 - 1.20 mg/dL 11/21/2023 11:32 PM CDT [facility] BUN/CREAT RATIO 14 10 - 20 11:32 PM CDT [facility] eGFR 45(L) >90 mL/min/1.7 3m2 11/21/2023 11:32 PM CDT [facility] Comment:As of 2021, eG FR is calculated by the CKD-EPI creatinine equation without race adjustment. ??eGFR can be influenced by muscle mass, exercise, and diet. ??The reported eGFR is an estimation only and is only applicable if the renal function is stable. Blood BLOOD SPECIMEN / Unknown Butterfly / Unknown 11/21/2023 1:41 PM CDT 11/21/2023 1:43 PM CDT Marla Medina DO CHEMISTRY [facility] [address] [place] [address], from Last 3 Months Advance Directives Documents on File Type Date Recorded Patient Living Coach Expl anation POLST 03/25/2023 11:00 AM Healthcare Directive 01/15/2018 10:00 AM 1 * Full Code (Latest Code Status on File) Date Activated Date Inactivated Comments 08/06/2017 5:48 AM 08/06/2017 4:11 PM * Full Code Date Activated Date Inactivated Comments 08/17/2006 5:10 PM 08/19/2006 1:10 PM Care Teams Wood Lather Relationship Specialty Start Date End Date Marla Medina DO [address] [place] [address] MARGUERITE RAMOS [address] PCP - General Family Practice 10/23/21 Joey Ribeiro MD Urology Surgery - Urology 11/28/[address] [address] 05/16/23
--- OUTSIDE RECORDS SUMMARY | 2024-01-29 22:07 | XMS_ITS | Referral Summary ---
Author Organization [facility] Address [facility]0 [facility] 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 Gender Identity Not on file Sexual Orientation [...] on file Medical Devices Implanted Type Area Lace Sewer Device Identifier Shelf Expiration Date Model / Serial / Lot Imp Scr Bone Can Joseluis 6.5x30mm [id number] Implanted:Qty: 1 on 09/08/2017 by Reji Michael MD at [facility] Metallic Hardware/An chor Left: Hip [employer] 12/14/2024 [id number] / / [id number] Imp Scr Bone Can Joseluis 6.5x30mm [id number] Implanted:Qty: 1 on 09/08/2017 by Reji Michael MD at [facility] Metallic Hardware/An chor Left: Hip [employer] 05/15/2027 [id number] / / [id number] Imp Cup Joseluis [place] 64mm [id number] Implanted:Qty: 1 on 09/08/2017 by eRji Micheal MD at [facility] Total Joint Component/I nsert Left: Hip [employer] 02/13/2027 [id number] / / [id number] Imp Stem Fem Hip Depuy [place] Tpr Sz 8 Hi Off 1570-11-150 Implanted:Qty: 1 on 09/08/2017 by Reji Michael MD at [facility] Total Joint Component/I nsert Left: Hip [employer] 05/15/2027 [id number] / / [id number] Imp Head Femoral Depuy 36mm +5 [id number] Implanted:Qty: 1 on 09/08/2017 by Reji Michael MD at [facility] Total Joint Component/I nsert Left: Hip [employer] 01/14/2022 [id number] / / [id number] [place] Altrx Acetabular Liner +4 10 Degree 36mm Id / 64mm Od Implanted:Qty: 1 on 09/08/2017 by Reji Michael MD at [facility] Left: Hip Depuy 02/13/2021 [id number] / / [id number] Additional Health Concerns Infection Onset Date Last Indicated MRSA 08/18/2017 08/18/2017 Insurance MEDICARE [facility] MEDICARE SUPPLEMENT Advance Directives For more information, please contact: [phone] Documents on File Type Date Recorded Patient Heating And Ventilating Tender Expl anation Advance Directives and Living Will [...] Agents on File Name Relationship Healthcare Agent Elkin Perez Spouse Health Care Agent Care Teams Promotional Marketing Analyst Relationship Specialty Start Date End Date Brandan Griffin MD [address] [place] [id number] PCP - General Internal Medicine 07/19/14
[2024-01-29 22:08] VITALS: BP 189/82; PULSE 48; RESP 16; TEMP 36.4; O2SAT 96
--- NOTE | 2024-01-29 22:12 | CRLHL7_ITS ---
For Patients: As a result of the Century Cures Act, medical imaging exams and procedure reports are released immediately into your electronic medical record. You may view this report before your referring provider. If you have questions, please contact your health care provider. Indication: Fall Technique: Postcontrast CT of the chest, abdomen, and pelvis with multiplanar reformats following 98 mL Isovue 370 IV. Comparison: None Findings: Chest: Lungs: Mild bibasilar atelectasis and/or scarring. Mediastinum: No acute abnormality appreciated. Calcified coronary arterial and aortic atherosclerosis. Lymph nodes: No gross lymphadenopathy. Soft tissues: No acute abnormality appreciated. Bones: No acute abnormality appreciated. Abdomen and Pelvis: Hepatobiliary: No significant parenchymal abnormality is appreciated. Spleen: Unremarkable. Pancreas: Question pancreatic mass versus intrapancreatic splenule measuring 2.3 centimeters within the pancreatic tail. Adrenal glands: No acute abnormality appreciated. Kidneys: Nonobstructing left renal stones. No acute abnormality appreciated. Bowel: No obstruction. No focal perienteric or pericolonic stranding is appreciated. Vascular: Calcified and noncalcified atherosclerosis. Lymph nodes: No gross lymphadenopathy. Peritoneum: No free air. No free fluid. : No acute abnormality appreciated. Soft tissues: No acute abnormality appreciated. Bones: No acute fracture. No lytic or blastic lesion. Bilateral hip replacements. L4-5 fusion. Impression: 1. No acute abnormality appreciated. 2. Questionable pancreatic tail mass versus intrapancreatic splenule measuring 2.3 centimeters. Consider nonemergent outpatient multiphase pancreatic protocol CT. 3. Nonobstructing left renal stone. Please note that all CT scans at this facility use dose modulation, iterative reconstruction, and/or weight-based dosing when appropriate to reduce radiation dose to as low as reasonably achievable. Dictated by Jerson Dial MD @ 01/30/2024 12:00:45 AM (Electronically Signed)
--- NOTE | 2024-01-29 22:12 | CRLHL7_ITS ---
For Patients: As a result of the Century Cures Act, medical imaging exams and procedure reports are released immediately into your electronic medical record. You may view this report before your referring provider. If you have questions, please contact your health care provider. Indication: Fall Technique: Noncontrast CT through the head with multiplanar reformats Comparison: CT head performed 04/07/2023 Findings: Brain: No acute hemorrhage. No acute infarct. No significant mass effect or midline shift. No gross evidence of a mass lesion or cerebral edema. Moderate chronic microvascular ischemic disease. Severe global parenchymal volume loss. Ventricles: No acute abnormality appreciated. Orbits, sinuses, mastoids: No acute abnormality appreciated. Calvarium and soft tissues: No acute abnormality appreciated. Impression: No acute abnormality appreciated. Please note that all CT scans at this facility use dose modulation, iterative reconstruction, and/or weight-based dosing when appropriate to reduce radiation dose to as low as reasonably achievable. Dictated by Jerson Dial MD @ 01/29/2024 11:35:23 PM (Electronically Signed)
--- NOTE | 2024-01-29 22:12 | CRLHL7_ITS ---
For Patients: As a result of the Century Cures Act, medical imaging exams and procedure reports are released immediately into your electronic medical record. You may view this report before your referring provider. If you have questions, please contact your health care provider. Indication: Fall Technique: Noncontrast CT through the cervical spine with multiplanar reformats Comparison: Cervical spine CT performed 04/07/2023 Findings: Alignment: No acute malalignment appreciated. Bones: No acute fracture. No lytic or blastic lesion. Cervical levels: No acute abnormality appreciated. Moderate multilevel degenerative changes. Soft tissues: No acute abnormality appreciated. Impression: No acute abnormality appreciated. Please note that all CT scans at this facility use dose modulation, iterative reconstruction, and/or weight-based dosing when appropriate to reduce radiation dose to as low as reasonably achievable. Dictated by Jerson Dial MD @ 01/29/2024 11:48:31 PM (Electronically Signed)
--- NOTE | 2024-01-29 22:16 | ED_ITS ---
HPI - Fall General Date Seen: 01/29/24 Chief Complaint: Fall/Minor Trauma Stated Complaint: fall Time Seen by Provider: 01/29/24 22:08 Source: patient Mode of arrival: ambulatory Limitations: altered mental status History of Present Illness HPI Narrative: Patient is an 83-year-old male presenting to emergency department after fall. He has a history of dementia. He lives in a nursing home facility with this and was found on the ground. Was brought in by EMS. EMS states patient has labile back pain but was unable to localize where the pain is. On my exam patient is moaning in pain to everything and has dementia and is unable answer any questions. His states he seems to have been acting at his baseline today. She does state every days different anemia not sleep well last night. Says she believes he got up to locked the front door like he always does but did not take his walker and thus leading to a fall. She heard him cry out and that is when she went to see him She was unable to get himself up on her own so she called EMS. Related Data Home Medications ?Medication ?Instructions ?Recorded ?Confirmed acetaminophen 500 mg capsule 1,000 mg PO TID 08/20/22 09/06/22 donepezil 10 mg tablet 10 mg PO HS 08/20/22 09/06/22 memantine 10 mg tablet 10 mg PO BID 08/20/22 09/06/22 tamsulosin 0.4 mg capsule 0.4 mg PO DAILY@1300 08/20/22 09/06/22 venlafaxine 37.5 mg 37.5 mg PO DAILY 08/20/22 09/06/22 capsule,extended release 24 hr Methylcobalamin 1,000 mcg PO DAILY 08/26/22 09/06/22 amlodipine 2.5 mg tablet 2.5 mg PO DAILY 08/26/22 09/06/22 cholecalciferol (vitamin D3) 50 50 mcg PO DAILY 08/26/22 09/06/22 mcg (2,000 unit) capsule grape seed extract 50 mg capsule 50 mg PO DAILY 08/26/22 09/06/22 melatonin 5 mg tablet 5 mg PO QHS 08/26/22 09/06/22 multivitamin (Daily Multi-Vitamin 1 tab PO DAILY 08/26/22 09/06/22 tablet) omega 9-qbc-xnp-fish oil 1,600 5 ml PO DAILY 08/26/22 09/06/22 mg-500 mg-800 mg/5 mL oral liquid (Fish Oil) oxybutynin chloride 5 mg tablet 2.5 mg PO BID 08/26/22 09/06/22 potassium citrate 99 mg capsule 99 mg PO BID 08/26/22 09/06/22 sennosides 8.6 mg tablet (Patti-jose) 8.6 mg PO QHS 08/26/22 09/06/22 tramadol 50 mg tablet 25 - 50 mg PO 3XD PRN 08/26/22 09/06/22 Allergies Allergy/AdvReac Type Severity Reaction Status Date / Time No Known Drug Allergies Allergy Verified 08/25/22 14:23 Review of Systems Status of ROS: Reports: unobtainable due to mental status PFSH PFS Social History What is your current living situation?: I presently have a place to live Problems where you live: no known problems Problems where you live details: none In the past 12 months, utilities in danger of being shut off: no In the past 12 mos, have been you worried that your food would run out before you had money to buy more?: never true In the past 12 mos, the food you bought just didn't last and you didn't have money to buy more?: never true Smoking Status: Former smoker What tobacco products do you use: cigarettes Smoking quit date/years: >15 years ago Do you use any of these nicotine containing products: None Second hand tobacco smoke exposure: No How often do you have a drink containing alcohol: never How often do you have six or more drinks on one occasion: Never AUDIT-C Alcohol total score: 0 Non-prescribed substance use: denies use Caffeine: Yes How often does anyone, including family, friends and others, physically hurt you : never How often does anyone, including family, friends and others, insult or talk down to you: never How often does anyone, including family, friends and others, threaten you with harm: never How often does anyone, including family, friends and others, scream or curse at you: never service: No Exam Narrative: Exam Narrative: Const: Well-nourished, Well-developed, Eyes: PERRL, no conjunctival injection, and symmetrical lids HENT: Atraumatic external nose and ears. Moist mucous membranes. Neck: Symmetric, trachea midline, No thyromegaly. CVS: RRR, No murmurs or gallops. Peripheral pulses 2+ and equal in all extremities RESP: Unlabored respiratory effort. Clear to auscultation bilaterally. GI: Nontender/Nondistended, No rebound or guarding. MSK:Extremities w/o deformity, Normal Active ROM Skin: Warm, Dry. No rashes or lesions. Neuro: Normal Muscle tone, No focal neurological deficits. Psych: Awake, Alert, but not oriented Const: Vital Signs, click to edit/add: Vital Signs - 24 hr 01/29/24 22:08 Temperature 97.6 F Pulse Rate [Pulse Oximeter] 48 L Respiratory Rate 16 Blood Pressure [Ri ght Upper Arm] 189/82 H Pulse Oximetry 96 Oxygen Delivery Me thod Room Air Course Vital Signs Vital signs: Initial Vital Signs Temperature 97.6 F 01/29/24 22:08 Temperature Source Temporal Artery Scan 01/29/24 22:08 Pulse Rate 48 L 01/29/24 22:08 Respiratory Rate 16 01/29/24 22:08 Blood Pressure 189/82 H 01/29/24 22:08 Blood Pressure Mean 117 H 01/29/24 22:08 Blood Pressure Position Sitting 01/29/24 22:08 Pulse Oximetry 96 01/29/24 22:08 Oxygen Delivery Method Room Air 01/29/24 22:08 Vital Signs Temperature 97.6 F 01/29/24 22:08 Pulse Rate 48 L 01/29/24 22:08 Respiratory Rate 16 01/29/24 22:08 Blood Pressure 189/82 H 01/29/24 22:08 Pulse Oximetry 96 01/29/24 22:08 Oxygen Delivery Method Room Air 01/29/24 22:08 Temperature 97.6 F 01/29/24 22:08 Pulse Rate 48 L 01/29/24 22:08 Respiratory Rate 16 01/29/24 22:08 Blood Pressure 189/82 H 01/29/24 22:08 Pulse Oximetry 96 01/29/24 22:08 Oxygen Delivery Method Room Air 01/29/24 22:08 MDM - Fall MDM Narrative Medical decision making narrative: Patient is an 83-year-old male presenting to emergency department after an unwitnessed fall. His thinks he lost his balance could see do not use his walker. Considering he is moaning in pain everywhere I touch at this time I will do CT scan of the head, neck and the chest/abdomen/pelvis. Consider he cannot tell us what happened causing his fall I will also do an EKG, troponin, CBC, BMP. Lab work shows no concerning findings. His creatinine is slightly elevated but does not meet criteria for an SANDHYA. Will give him a 500 mL bolus of fluids though. Imaging returned showing no concerning abnormalities. There was a past seen on the pancreatic tail that I informed the patient's about this. When you again with a discharge the patient back to home via ambulance per the 's request, she now states he seems to be less talkative now is now concerned she cannot handle him at home. She is concerned he would be unsafe at home. I spoke to her old an observation admission and what that all entails. She is comfortable with this. He will be admitted under observation to the hospitalist service. Lab Data Labs: Lab Results 01/29/24 01/29/24 Range/Units 22:11 22:21 WBC 4.72 (4.50-11.00) K/uL RBC 4.13 L (4.30-5.90) m/uL Hgb 13.3 L (13.5-17.5) gm/dL Hct 41.1 (37.0-53.0) % MCV 100 (80-100) fL MCH 32 (26-34) pg MCHC 32 (32-36) gm/dL RDW Coeff of Moira 12.4 (11.5-15.5) % Plt Count 184 (140-440) K/uL Neut % (Auto) 40.5 L (42.0-72.0) % Lymph % (Auto) 35.6 (20-44) % Emmet % (Auto) 14.8 H (0.0-11.0) % Eos % (Auto) 7.6 H (0.0-7.0) % Baso % (Auto) 0.4 (0.0-3.0) % Neut # (Auto) 1.90 (1.7-7.0) K/uL Lymph # (Auto) 1.68 (0.90-2.90) K/uL Emmet # (Auto) 0.70 (0.00-0.90) K/UL Eos # (Auto) 0.40 (0.00-0.50) K/uL Baso # (Auto) 0.02 (0.00-0.30) K/uL Abs Immat Gran (auto) 0.05 (0.00-0.30) K/uL Imm/Tot Granulo (auto) 1.1 % Sodium 142 (135-149) mmol/L Potassium 4.1 (3.6-5.1) mmol/L Chloride 106 (96-114) mmol/L Carbon Dioxide 24 (20-32) mmol/L Anion Gap 12 (7-15) mEq/L BUN 26 (7-30) mg/dL Creatinine 1.6 H (0.5-1.5) mg/dL Estimated GFR 42 ml/min Glucose 97 (60-115) mg/dL Calcium 9.9 (8.4-10.6) mg/dL Troponin I 0.01 (0.01-0.04) ng/mL POC Creatinine 1.6 H (0.6-1.3) mg/dl Imaging Data CT scan head: Attestation: I have reviewed the pertinent imaging results. Radiologist's impression: No acute abnormality appreciated. Please note that all CT scans at this facility use dose modulation, iterative reconstruction, and/or weight-based dosing when appropriate to reduce radiation dose to as low as reasonably achievable. Dictated by Jerson Dial MD @ 01/29/2024 11:35:[address] scan cervical spine: Attestation: I have reviewed the pertinent imaging results. Radiologist's impression: No acute abnormality appreciated. Please note that all CT scans at this facility use dose modulation, iterative reconstruction, and/or weight-based dosing when appropriate to reduce radiation dose to as low as reasonably achievable. Dictated by Jerson Dial MD @ 01/29/2024 11:48:[address] Chest/Ab/Pelvis: Attestation: I have reviewed the pertinent imaging results. Radiologist's impression: 1. No acute abnormality appreciated. 2. Questionable pancreatic tail mass versus intrapancreatic splenule measuring 2.3 centimeters. Consider nonemergent outpatient multiphase pancreatic protocol CT. 3. Nonobstructing left renal stone. Please note that all CT scans at this facility use dose modulation, iterative reconstruction, and/or weight-based dosing when appropriate to reduce radiation dose to as low as reasonably achievable. Dictated by Jerson Dial MD @ 01/30/2024 12:00:45 AM ECG Data Attestation: I personally reviewed and interpreted this ECG as follows: Prior ECG tracings: available for review Interpretation: Sinus bradycardia with a rate of 50 beats per minute, right bundle-branch blocks, PVC seen, normal QTC. No ST or T-wave abnormalities. Appears similar to previous EKG on file Discharge Plan Discharge Clinical Impression: Weakness Patient Disposition: Home, Self-Care Condition: Stable Prescriptions: No Action tamsulosin 0.4 mg capsule 0.4 mg PO DAILY@1300 memantine 10 mg tablet 10 mg PO BID venlafaxine 37.5 mg capsule,extended release 24hr 37.5 mg PO DAILY donepezil 10 mg tablet 10 mg PO HS acetaminophen 500 mg capsule 1,000 mg PO TID melatonin 5 mg tablet 5 mg PO QHS potassium citrate 99 mg capsule 99 mg PO BID amlodipine 2.5 mg tablet 2.5 mg PO DAILY oxybutynin chloride 5 mg tablet 2.5 mg PO BID tramadol 50 mg tablet 25 - 50 mg PO 3XD PRN Fish Oil 1,600-500-800 mg/5 mL liquid 5 ml PO DAILY multivitamin [Daily Multi-Vitamin] Tablet 1 tab PO DAILY sennosides [Patti-jose] 8.6 mg tablet 8.6 mg PO QHS cholecalciferol (vitamin D3) 50 mcg (2,000 unit) capsule 50 mcg PO DAILY Methylcobalamin 1,000 mcg 1,000 mcg PO DAILY grape seed extract 50 mg capsule 50 mg PO DAILY Rx Instructions: give with food (meal/snack) Follow Up/Referrals: RIMMA KINCAID DO [Primary Care Provider] - Stand Alone Forms: MyHealth Info Instructions
[2024-01-29 22:27] LABS: Basophils Absolute Auto 0.02 K/uL (0.00-0.30); Basophils Percent Auto 0.4 % (0.0-3.0); Eosinophils Percent Auto 7.6 % (0.0-7.0); Hematocrit 41.1 % (37.0-53.0); Hemoglobin* 13.3 gm/dL (13.5-17.5); Immature Granulocytes Abs Auto 0.05 K/uL (0.00-0.30); Immature Granulocytes Pct Auto 1.1 %; Lymphocytes Absolute Auto 1.68 K/uL (0.90-2.90); Lymphocytes Percent Auto 35.6 % (20-44); Mean Corpuscular HGB Conc 32 gm/dL (32-36); Mean Corpuscular Hemoglobin 32 pg (26-34); Mean Corpuscular Volume 100 fL (80-100); Monocytes Percent Auto 14.8 % (0.0-11.0); Neutrophils Percent Auto 40.5 % (42.0-72.0); Platelet Count* 184 K/uL (140-440); RDW Coefficient of Variation % 12.4 % (11.5-15.5); Red Blood Count 4.13 m/uL (4.30-5.90); White Blood Count* 4.72 K/uL (4.50-11.00)
[2024-01-29 22:30] LABS: Slide Review Reflex No
--- OUTSIDE RECORDS SUMMARY | 2024-01-29 22:32 | XMS_ITS | Encounter Summary ---
Author Organization [facility] Address [address] [place] [address] Care Team Providers Care Card Tape Converter Operator Name Role Phone Found, No Pcp Primary Care Provider Unavailab le Encounter Details Date Type Department Care Team (Late st Contact Info) Description 10/04/2020 Lab Requisition [facility] [address] [place], [place] [id number] Salinas Clifford MD [address] [facility] [address] [place], [place] [id number] Encounter for screening for respiratory tuberculosis Social [...] MITOGEN >10.000 IU/mL 10/09/2020 11:14 AM CDT [facility] Blood Venipuncture / Unknown 10/05/2020 2:33 PM CDT 10/05/2020 9:17 PM CDT Salinas Clifford MD LAB_1 Performing Organization Address [facility] Co de Phone Number [facility] [address] [place] [address] * TB QuantiFERON Gold Plus TB2 (10/05/2020 2:33 PM CDT) TB2 0.000 IU/mL 10/09/2020 11:14 AM CDT [facility] Blood Venipuncture / Unknown 10/05/2020 2:33 PM CDT 10/05/2020 9:17 PM CDT Salinas Clifford MD LAB_1 Performing Organization Address [facility] Phone Number [facility] [address] [place] [address] * TB QuantiFERON Gold Plus TB1 (10/05/2020 2:33 PM CDT) TB1 0.189 IU/mL 10/09/2020 11:14 AM CDT [facility] Blood Venipuncture / Unknown 10/05/2020 2:33 PM CDT 10/05/2020 9:17 PM CDT Salinas Clifford MD LAB_1 Performing Organization Address [facility] Co de Phone Number [facility] [address] [place] [address] * TB QuantiFERON Gold Plus NIL (10/05/2020 2:33 PM CDT) [facility] TB QuantiFERON Gold Plus Negative, M. tuberculosis Infection NOT likely Negative, M. tuberculosis Infection NOT likely 10/09/2020 11:22 AM CDT [facility] NIL 0.000 IU/mL 10/09/2020 11:22 AM CDT [facility] TB1-NIL 0.19 IU/mL 10/09/2020 11:22 AM CDT [facility] TB2-NIL 0.00 IU/mL 10/09/2020 11:22 AM CDT [facility] Mitogen-NIL 10.00 IU/mL 10/09/2020 11:22 AM CDT [facility] Blood Venipuncture / Unknown 10/05/2020 2:33 PM CDT 10/05/2020 9:17 PM CDT Narrative [facility] - 10/09/2020 11:22 AM CDT Nil [...] production by lymphocytes. Salinas Clifford MD LAB_1 [facility] [address] [place] [address], [facility] documented in this encounter Visit Diagnoses Diagnosis Encounter for screening for respiratory tuberculosis Screening examination for pulmonary tuberculosis documented in this encounter Care Teams Card Tape Converter Operator Relationship Specialty Start Date End Date Found, No Pcp, [address] [place] [address] PCP - General 11/30/19 documented as of this encounter
--- OUTSIDE RECORDS SUMMARY | 2024-01-29 22:32 | XMS_ITS | Encounter Summary ---
Author Organization [facility] Address [address] [address] Care Team Providers Care Wool Grower Name Role Phone Found, No Pcp MD Primary Care Provider Unavailab le Encounter Details Date Type Department Care Team (Late st Contact Info) Description 08/03/2018 Lab Requisition [facility] [address] [facility] [place], [place] [address] Kvng Boyle MD [address] [place] [address] Spinal stenosis; Essential (primary) hypertension Social History [...] - 145 mmol/L 08/04/2018 11:30 AM CDT [facility] Potassium 4.2 3.5 - 5.1 mmol/L 08/04/2018 11:30 AM CDT [facility] Chloride 103 98 - 109 mmol/L 08/04/2018 11:30 AM CDT [facility] CO2 26 20 - 29 mmol/L 08/04/2018 11:30 AM CDT [facility] Anion Gap 9 7 - 16 mmol/L 08/04/2018 11:30 AM CDT [facility] Calcium 10.3 8.4 - 10.4 mg/dL 08/04/2018 11:30 AM CDT [facility] BUN 14 7 - 26 mg/dL 08/04/2018 11:30 AM CDT [facility] Creatinine 1.06 0.73 - 1.18 mg/dL 08/04/2018 11:30 AM CDT [facility] GFR, Estimated >60 >60 mL/min/1.7 3m2 08/04/2018 11:30 AM CDT [facility] GFR, Est If >60 >60 mL/min/1.7 3m2 08/04/2018 11:30 AM CDT [facility] Albumin 3.3(L) 3.5 - 5.0 g/dL 08/04/2018 11:30 AM CDT [facility] Phosphorus 3.3 2.3 - 4.7 mg/dL 08/04/2018 11:30 AM CDT [facility] Glucose 159(H) 70 - 100 mg/dL 08/04/2018 11:30 AM CDT [facility] Comment:The given reference range is for the fasting state. Non-fasting reference range for glucose is 70 - 180 mg/dL. Hours Fasting Unknown 08/04/2018 11:30 AM CDT [facility] Blood Venipuncture / Unknown 08/04/2018 9:09 AM CDT 08/04/2018 11:13 AM CDT Kvng Boyle MD LAB_1 [facility] [address] * (ABNORMAL) Complete Blood Count-No Diff (08/04/2018 9:09 AM CDT) WBC 9.3 3.5 - 10.5 x10(9)/L 08/04/2018 11:21 AM CDT [facility] RBC 4.17(L) 4.32 - 5.72 x10(12)/L 08/04/2018 11:21 AM CDT [facility] Hemoglobin 13.0(L) 13.5 - 17.5 g/dL 08/04/2018 11:21 AM CDT [facility] HCT 41.5 38.8 - 50.0 % 08/04/2018 11:21 AM CDT [facility] MCV 99.5 80.0 - 100.0 fL 08/04/2018 11:21 AM CDT [facility] MCH 31.2 27.6 - 33.3 pg 08/04/2018 11:21 AM CDT [facility] MCHC 31.3(L) 31.5 - 35.2 g/dL 08/04/2018 11:21 AM CDT [facility] RDW 12.6 11.9 - 15.5 % 08/04/2018 11:21 AM CDT [facility] Platelets 312 150 - 450 x10(9)/L 08/04/2018 11:21 AM CDT [facility] Automated NRBC 0 <=0 /100 WBC 08/04/2018 11:21 AM CDT [facility] Blood Venipuncture / Unknown 08/04/2018 9:09 AM CDT 08/04/2018 11:12 AM CDT Kvng Boyle MD LAB_1 [facility] [address] [place] [address], [facility] documented in this encounter Visit Diagnoses Diagnosis Spinal stenosis Spinal stenosis, unspecified region other than cervical Essential (primary) hypertension (HRC) Unspecified essential hypertension documented in this encounter Care Teams Wool Grower Relationship Specialty Start Date End Date Found, No Pcp, [place] [address] PCP - General 11/30/19 documented as of this encounter
--- OUTSIDE RECORDS SUMMARY | 2024-01-29 22:32 | XMS_ITS | Clinical Summary ---
Author Organization [employer] [facility] Address [place], [place] [address] Care Team Providers Care Jewelry Engraver Name Role Phone Joey Ribeiro MD Unavailable [phone] Marla Medina DO Primary Care Provider [facility], Muriel Unavailable Allergies Active Allergy Reactions [...] by mouth once daily. 0 9 Active Uzpfh-5-JWO-EPA-Fi sh Oil 1,000 mg (120 mg-180 mg) [...] ADMITTED DUE LACK OF A TERMINAL PROGNOSIS. [facility] Physician Note Verification of Hospice Diagnosis Rene Perez Date of : 1940 Primary Terminal Diagnosis: Alzheimer disease, late onset Rene Perez is a 83 y.o. male with a history of Alzheimer's disease confirmed by MRI of the brain in June 2022. Rene Perez is NOT terminally ill due to the above listed diagnoses, discussed 05/21/23 with Víctor Hastings RN, [facility] with progressive cognitive decline, PPS= 50% (from [...] 1 TABLET(10 MG) BY MOUTH TWICE DAILY Oipgc-8-LLU-EPA-Fish Oil 1,000 mg (120 mg-180 mg) cap [...] WITH A MEAL Howard Cole MD [facility] Reji Cole [...] (08/30/2021): HCD received, see HCD 01/08/18 PABLITO Zaiid Advance Care Planning Educator [phone] History of total hip arthroplasty, left 09/09/19 [...] Type Department Care Team Description 12/27/2023 Refill [facility] [address] [place] [address] Marla Medina DO Refill Request (Memantine) 12/23/2023 Refill [facility] [address] [place] [address] Marla Medina DO Refill Request (Memantine) 12/07/2023 Refill [facility] [address] [place] [address] Marla Medina DO Refill Request (Venlafaxine, Cetirizine) 11/21/2023 12:25 PM CDT Office Visit [facility] [address] [place] [address] Marla Medina DO Concerns (Continuing diarrhea /Weakness - difficulty moving around - stiffness in bilateral legs) 11/21/2023 Travel 11/14/2023 Refill [facility] [address] [place] [address] Marla Medina DO Refill Request (Tamsulosin) 11/10/2023 Telephone [facility] [address] [place] [address] Shaqra, Adei, DO Questions from Last 3 Months Immunizations Name Administration Dates Next Due COVID-19 vaccine (Toura-Bio NTKidsCash 30mcg/0.3mL) 12YO+ SCOTT-SUCROSE PF, MDV 10/02/2021 COVID-19 vaccine (Toura-BioNTKidsCash 30mcg/0.3mL) P F, MDV 05/13/2020,04/22/2020 Influenza A [...] T Respiratory Rate 15 05/21/2023 1:48 PM MENTAL HEALTH NURSE Oxygen Saturation 97% 11/21/2023 12: 44 PM [...] - 145 mmol/L 11/21/2023 11:32 PM CDT [facility] POTASSIUM 4.3 3.5 - 5.1 mmol/L 11/21/2023 11:32 PM CDT [facility] CHLORIDE 107 98 - 107 mmol/L 11/21/2023 11:32 PM CDT [facility] CO2,TOTAL 22 22 - 29 mmol/L 11/21/2023 11:32 PM CDT [facility] ANION GAP 13 5 - 18 11/21/2023 11:32 PM CDT [facility] GLUCOSE 99 70 - 99 mg/dL 11/21/2023 11:32 PM CDT [facility] CALCIUM 9.8 8.8 - 10.2 mg/dL 11/21/2023 11:32 PM CDT [facility] BUN 21 8 - 23 mg/dL 11/21/2023 11:32 PM CDT [facility] CREATININE 1.50(H) 0.70 - 1.20 mg/dL 11/21/2023 11:32 PM CDT [facility] BUN/CREAT RATIO 14 10 - 20 11:32 PM CDT [facility] eGFR 45(L) >90 mL/min/1.7 3m2 11/21/2023 11:32 PM CDT [facility] Comment:As of 2021, eG FR [...] 1:43 PM CDT Marla Medina DO CHEMISTRY [facility] [address] [place] [address], from Last 3 Months Advance Directives Documents on File Type Date Recorded Patient Store Product Demonstrator Expl anation POLST 03/25/2023 11:00 AM Healthcare Directive 01/15/2018 10:00 AM 1 * Full Code (Latest Code Status on File) Date Activated Date Inactivated Comments 08/06/2017 5:48 AM 08/06/2017 4:11 PM * Full Code Date Activated Date Inactivated Comments 08/17/2006 5:10 PM 08/19/2006 1:10 PM Care Teams Jewelry Engraver Relationship Specialty Start Date End Date Marla Medina DO [address] [place] [address] MARGUERITE RAMOS [address] PCP - General Family Practice 10/23/21 Joey Ribeiro MD Urology Surgery - Urology 11/28/[address] [address] 05/16/23
--- OUTSIDE RECORDS SUMMARY | 2024-01-29 22:32 | XMS_ITS | Clinical Summary ---
Author Organization [facility] Address [address] [place] [address]. 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 Metallic Hardware/An chor Left: Hip [employer] 12/14/2024 [id number] / / [id number] Imp Scr Bone Can Joseluis 6.5x30mm [id number] Implanted:Qty: 1 on 09/08/2017 by Reji Michael MD at [facility] Metallic Hardware/An chor Left: Hip [employer] 05/15/2027 [id number] / / [id number] Imp Cup Joseluis Butler 64mm [id number] Implanted:Qty: 1 on 09/08/2017 by Reji Michael MD at [facility] Total Joint Component/I nsert Left: Hip [employer] 02/13/2027 [id number] / / [id number] Imp Stem Fem Hip Depuy [place] Tpr Sz 8 Hi Off 1570-11-150 Implanted:Qty: 1 on 09/08/2017 by Reji Michael MD at [facility] Total Joint Component/I nsert Left: Hip [employer] 05/15/2027 [id number] / / [id number] Imp Head Femoral Depuy 36mm +5 [id number] Implanted:Qty: 1 on 09/08/2017 by Reji Michael MD at [facility] Total Joint Component/I nsert Left: Hip [employer] 01/14/2022 [id number] / / [id number] Butler Altrx Acetabular Liner +4 10 Degree 36mm Id / 64mm Od Implanted:Qty: 1 on 09/08/2017 by Reji Michael MD at 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
--- OUTSIDE RECORDS SUMMARY | 2024-01-29 22:32 | XMS_ITS | Encounter Summary ---
Author Organization [place] Address [address] [facility] [place] [address] Care Team Providers Care Metal Cnc Operator Name Role Phone Brandan Griffin MD Primary Care Provider Encounter Details Date Type Department Care Team (Late st Contact Info) Description 08/15/2017 Orders Only [facility] [address] [facility] [address] Reji Michael MD [facility] [address] [place] [address] Pre-operative laboratory examination (Primary Dx) Social History Tobacco Use Types Packs/Day Years Used Date Smoking Tobacco: Never Alcohol Use Standard Drinks/Week Comments Yes 0 (1 standard drink = 0.6 oz pur e alcohol) Sex and Gender Information Value Date Recorded Sex Assigned at Not on file 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 aureus PCR (08/18/2017 12:00 PM CDT) Specimen Description [place] 08/18/2017 4:04 PM CDT [facility] Methicillin Resist/Sens S. 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 A positive test does not necessarily indicate the presence of viable organisms. It is,however, presumptive for the presence of MRSA or SA. FDA approved assay performed using [employer] GeneXpert(R) real-time PCR. Nasal structure (body structure) 08/18/2017 12:00 PM CDT 08/18/2017 4:05 PM CDT us Reji Michael MD LAB - MICRO GENERAL ORDERABLE S Final Result [facility] [address] [place], [place] [id number] [place] [address] Soni Joel [place], [place] [id number] [place] [address] documented in this encounter Visit Diagnoses Diagnosis Pre-operative laboratory examination- Primary Pre-procedural laboratory examination documented in this encounter Additional Health Concerns Infection Onset Date Last Indicated Resolved Time MRSA 08/18/2017 08/18/2017 documented as of this encounter Care Teams Metal Cnc Operator Relationship Specialty Start Date End Date Brandan Griffin MD [address] [place] [id number] PCP - General Internal Medicine 07/19/14 documented as of this encounter
--- OUTSIDE RECORDS SUMMARY | 2024-01-29 22:32 | XMS_ITS | Referral Summary ---
Author Organization [place] Address 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 Metallic Hardware/An chor Left: Hip [employer]- 12/14/2024 [id number] / / [id number] Imp Scr Bone Can Joseluis 6.5x30mm [id number] Implanted:Qty: 1 on 09/08/2017 by Reji Michael MD at [facility] Metallic Hardware/An chor Left: Hip [employer] 05/15/2027 [id number] / / [id number] Imp Cup Joseluis Iva 64mm [id number] Implanted:Qty: 1 on 09/08/2017 by Reji Michael MD at [facility] Total Joint Component/I nsert Left: Hip [employer] 02/13/2027 [id number] / / [id number] Imp Stem Fem Hip Depuy [place] Tpr Sz 8 Hi Off 1570-11-150 Implanted:Qty: 1 on 09/08/2017 by Reji Michael MD at [facility] Total Joint Component/I nsert Left: Hip [employer] 05/15/2027 [id number] / / [id number] Imp Head Femoral Depuy 36mm +5 [id number] Implanted:Qty: 1 on 09/08/2017 by Reji Michael MD at [facility] Total Joint Component/I nsert Left: Hip [employer] 01/14/2022 [id number] / / [id number] Iva Altrx Acetabular Liner +4 10 Degree 36mm Id / 64mm Od Implanted:Qty: 1 on 09/08/2017 by Reji Michael MD at [facility] Left: Hip Depuy 02/13/2021 [id number] / / [id number] Additional Health Concerns Infection Onset Date Last Indicated MRSA 08/18/2017 08/18/2017 Insurance MEDICARE [facility] MEDICARE SUPPLEMENT Advance Directives For more information, please contact: [phone] Documents on File Type Date Recorded Patient Core Piler Expl anation Advance Directives and Living Will [...] Perez Spouse Health Care Agent Care Teams Masonry Installer Relationship Specialty Start Date End Date Brandan Griffin MD [address] [place] [id number] PCP - General Internal Medicine 07/19/14
--- OUTSIDE RECORDS SUMMARY | 2024-01-29 22:32 | XMS_ITS | Encounter Summary ---
Author Organization [place] Address [facility] [place] [address] Care Team Providers Care Rolling Mill Plugger Name Role Phone Brandan Griffin MD Primary Care Provider [phone] Encounter Details Date Type Department Care Team (Late st Contact Info) Description 08/18/2017 [facility] [address] [place] [address] Reji Michael MD [facility] [address], [place] [id number] Pre-operative laboratory examination (Primary Dx) Social History Tobacco Use Types Packs/Day Years Used Date Smoking Tobacco: Never Alcohol Use Standard Drinks/Week Comments Yes 0 (1 standard drink = 0.6 oz pur e alcohol) Sex and Gender Information Value Date Recorded Sex Assigned at Not on file 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 Gender Identity Not on file Sexual Orientation Not on file documented as of this encounter Plan of Treatment Not on file documented as of this encounter Visit Diagnoses Diagnosis Pre-operative laboratory examination- Primary Pre-procedural laboratory examination documented in this encounter Additional Health Concerns Infection Onset Date Last Indicated Resolved Time MRSA 08/18/2017 08/18/2017 documented as of this encounter Care Teams Rolling Mill Plugger Relationship Specialty Start Date End Date Brandan Griffin MD [address] [place], [place] [address] PCP - General Internal Medicine 07/19/14 documented as of this encounter
--- OUTSIDE RECORDS SUMMARY | 2024-01-29 22:32 | XMS_ITS | Clinical Summary ---
Author Organization [facility] Address [address] [place] [address] Care Team Providers Care Watch Inspector Name Role Phone Found, No Pcp [...] for each transition of care or referral. [facility] Allergies No known active allergies Medications Medication [...] Take 1 Tablet by mouth. 02/03/2014 Active Elwin-3 (AKA FISH OIL) 1000 MG capsule Take [...] age to complete this topic Care Teams Watch Inspector Relationship Specialty Start Date End Date Found, No Pcp, [address] [place] [address] PCP - General 11/30/19
[2024-01-29 22:41] LABS: Chloride* 106 mmol/L (96-114)
[2024-01-29 22:42] LABS: Potassium* 4.1 mmol/L (3.6-5.1); Sodium* 142 mmol/L (135-149)
[2024-01-29 22:44] LABS: Creatinine* 1.6 mg/dL (0.5-1.5); Estimated Glomerular Filt Rate 42 ml/min
[2024-01-29 22:45] LABS: Anion Gap 12 mEq/L (7-15); Blood Urea Nitrogen* 26 mg/dL (7-30); Calcium* 9.9 mg/dL (8.4-10.6); Carbon Dioxide* 24 mmol/L (20-32); Glucose* 97 mg/dL (60-115)
[2024-01-29 22:57] LABS: Troponin I* 0.01 ng/mL (0.01-0.04)
[2024-01-29 23:05] LABS: Creatinine, Point-of-Care* 1.6 mg/dl (0.6-1.3)
[2024-01-30 00:05] VITALS: BP 152/71; PULSE 46; RESP 16; O2SAT 96
[2024-01-30 01:35] VITALS: BP 158/83; PULSE 42; RESP 16; TEMP 36.4; O2SAT 99
[2024-01-30 02:32] VITALS: BP 158/83; PULSE 42; RESP 16; TEMP 36.4; O2SAT 99; BMI 27.2
--- NOTE | 2024-01-30 06:20 | W.PM.TELEH&P ---
Telehealth- H&P: HPI History of Present Illness Date Seen: 01/30/24 Chief complaint: fall Narrative: Rene Perez is seen as an Interactive Telehealth visit. Rene Perez is a 84 year old male With past medical history significant for chronic subdural hematoma, dementia, HTN, depression, BPH who presented to emergency department s/p fall. This patient has dementia and lives in retirement facility with his . Patient was confused during the interview and history was obtained by who is at bedside. She said last evening she brought him water and his evening meds however he had gotten up from his chair to go to lock the door which he never forgets to do. She then found him laying on the floor there. She said he must have fallen. She was unable to get him back up and called EMS. EMS did report patient was complaining of a lot of back pain. Initially patient had full trauma workup in the emergency department. Plan was to send him back to his assisted living however did not think he was back to his baseline and did not feel comfortable taking him. Hospitalist service was asked to admit the patient. The emergency department showed no leukocytosis with white count of 4.72. Hemoglobin 13.3. Platelet count 184. BMP was unremarkable except creatinine was 1.6, up from 1.3 from earlier in the year. Urine has not been obtained. Patient is uncooperative due to his mental status. Nursing staff attempted self cath however no urine collected yet. CT head and neck was negative. CT chest abdomen pelvis was also negative for any abnormalities. There was questionable pancreatic tail mass versus intra pancreatic splenule measuring 2 to 3 cm. Consider nonemergent outpatient multi phase pancreatic protocol CT. Nonobstructing left renal stone. Review of Systems Narrative: unable to obtain due to his dementia [facility] Social History What is your current living situation?: I presently have a place to live Problems where you live: no known problems Problems where you live details: [facility] independent living, h/o falls In the past 12 months, utilities in danger of being shut off: no In the past 12 mos, have been you worried that your food would run out before you had money to buy more?: never true In the past 12 mos, the food you bought just didn't last and you didn't have money to buy more?: never true Smoking Status: Former smoker What tobacco products do you use: cigarettes Smoking quit date/years: >15 years ago Do you use any of these nicotine containing products: None Second hand tobacco smoke exposure: No How often do you have a drink containing alcohol: never How often do you have six or more drinks on one occasion: Never AUDIT-C Alcohol total score: 0 Non-prescribed substance use: denies use Caffeine: Yes How often does anyone, including family, friends and others, physically hurt you: never How often does anyone, including family, friends and others, insult or talk down to you: never How often does anyone, including family, friends and others, threaten you with harm: never How often does anyone, including family, friends and others, scream or curse at you: never service: No Meds Home Medications and Allergies Home Medications ?Medication ?Instructions ?Recorded ?Confirmed ?Type acetaminophen 500 mg capsule 1,000 mg PO TID 08/20/22 09/06/22 History donepezil 10 mg tablet 10 mg PO HS 08/20/22 09/06/22 History memantine 10 mg tablet 10 mg PO BID 08/20/22 09/06/22 History tamsulosin 0.4 mg capsule 0.4 mg PO DAILY@1300 08/20/22 09/06/22 History venlafaxine 37.5 mg 37.5 mg PO DAILY 08/20/22 09/06/22 History capsule,extended release 24 hr Methylcobalamin 1,000 mcg PO DAILY 08/26/22 09/06/22 History amlodipine 2.5 mg tablet 2.5 mg PO DAILY 08/26/22 09/06/22 History cholecalciferol (vitamin D3) 50 50 mcg PO DAILY 08/26/22 09/06/22 History mcg (2,000 unit) capsule grape seed extract 50 mg capsule 50 mg PO DAILY 08/26/22 09/06/22 History melatonin 5 mg tablet 5 mg PO QHS 08/26/22 09/06/22 History multivitamin (Daily Multi-Vitamin 1 tab PO DAILY 08/26/22 09/06/22 History tablet) omega 4-jte-xkz-fish oil 1,600 5 ml PO DAILY 08/26/22 09/06/22 History mg-500 mg-800 mg/5 mL oral liquid (Fish Oil) oxybutynin chloride 5 mg tablet 2.5 mg PO BID 08/26/22 09/06/22 History potassium citrate 99 mg capsule 99 mg PO BID 08/26/22 09/06/22 History sennosides 8.6 mg tablet (Patti-jose) 8.6 mg PO QHS 08/26/22 09/06/22 History tramadol 50 mg tablet 25 - 50 mg PO 3XD PRN 08/26/22 09/06/22 History Allergies Allergy/AdvReac Type Severity Reaction Status Date / Time No Known Drug Allergies Allergy Verified 08/25/22 14:23 Exam Narrative Exam Narrative: Physical Exam GENERAL: ?vital signs reviewed, Pt is confused and not following commands. HEENT: pupils are equal round and reactive to light NECK: Supple HEART: Regular rate and rhythm without any rubs, murmurs, or gallops. LUNGS: Clear to auscultation bilaterally with good air movement throughout ABDOMEN: Observation from nurse assisted exam, abdomen appears soft, nontender, and nondistended with Positive bowel sounds noted. EXTREMITIES: Strength and sensation is observed to be grossly within normal limits in the upper and lower extremities.? No focal strength deficit is observed. SKIN:? Observed warm and dry with color normal Const Vital Signs, click to edit/add: Vital Signs - 24 hr 01/29/24 22:08 01/30/24 00:05 01/30/24 01:35 Temperature 97.6 F 97.6 F Pulse Rate [Pulse Oximeter] 48 L 46 L 42 L Respiratory Rate 16 16 16 Blood Pressure [Left Arm] 158/83 H Blood Pressure [Right Upper Arm] 189/82 H 152/71 H Pulse Oximetry 96 96 99 Oxygen Delivery Method Room Air Room Air Room Air 01/30/24 02:32 01/30/24 02:32 Temperature 97.6 F Pulse Rate [Pulse Oximeter] 42 L Respiratory Rate 16 16 Blood Pressure [Left Arm] 158/83 H Blood Pressure [Right Upper Arm] Pulse Oximetry 99 99 Oxygen Delivery Method Room Air Room Air Hospitalist - H&P: Result Labs Labs: Short CBC 01/29/24 Range/Units 22:21 WBC 4.72 (4.50-11.00) K/uL Hgb 13.3 L (13.5-17.5) gm/dL Hct 41.1 (37.0-53.0) % Plt Count 184 (140-440) K/uL BMP 01/29/24 22:21 Sodium 142 Potassium 4.1 Chloride 106 Carbon Dioxide 24 BUN 26 Creatinine 1.6 H Glucose 97 Calcium 9.9 Cardiac Enzymes 01/29/24 Range/Units 22:21 Troponin I 0.01 (0.01-0.04) ng/mL Assessment and Plan Assessment and plan (1) Weakness: Status: Acute (2) Hypertension: Problem comment: No changes in medication Status: Chronic (3) Dementia: Problem comment: No changes in medications I did recommend that Rachael pursue a bedalarm mat and shower stool/commode for east of use. Status: Chronic (4) Chronic subdural hematoma: Problem comment: CT stable. No further w/u or treatment needed. Avoid anticoagulation. Status: Acute Plan Patient is a 54-year-old male with past medical history significant for SDH, HTN, dementia who presented to emergency department after an episode of fall. Trauma workup was negative. However due to his weakness and change in mental status, was not able to take him home. -Patient has developed worsening confusion overnight likely sundowning. -Most of the lab work does look reassuring. UA still pending. However he has no fevers or white count at this point. -If patient continues to complain of back pain, will obtain a dedicated spine CT however at this point he was not complaining of pain and CT abdomen pelvis was negative. Plan -Will monitor patient overnight. -Given severe agitation and sundowning in a patient with advanced dementia, will go ahead and treat with Haldol as needed. -Will obtain PT OT consult in the morning -Will monitor for any signs and symptoms of infection. Will follow-up on UA -Resume home medications for HTN, BPH and dementia Telehealth: Statement Statement Telehealth Visit: Today's History and Physical is provided via interactive telehealth by Yvette Sutton MD.? Patient is located at [facility].? Provider is located at [facility] Nursing staff assisted with the patient's exam. The visit being done today meets criteria for a telehealth visit and the patient or patient?s parent/guardian is aware the visit is a telehealth visit. Camera Start Time: 02:28 Camera End Time: 02:50
--- NOTE | 2024-01-30 07:02 | PC.NURSE ---
End of shift: Pt arrived to the floor from the ER @ 0135 accompanied by ?his , Rachael. Pt is baseline alert to self only and disoriented d/t Alzheimer?s. Pt was resistive to cares & combative during admission, utilizing his call light as a weapon and grabbing onto staff?s arms within reach. Pt was left to rest with his present in the room & eventually was able to fall asleep for about an hour. He has been awake/asleep in hour increments throughout the night but has been more pleasantly confused & cooperative with staff. He is SBA with 2ww for ambulation and transfers. Baseline incontinent of urine. No skin issues that were noted. Pt self removed his IV access from right FA. He resides at [facility] with his . Per , they just established with [facility] with an aide coming Mondays & Wednesdays for 4 hours each day and then another aide coming twice a week for showers. They have a nurse assessment appointment scheduled for 02/04.?
[2024-01-30 08:48] VITALS: BP 138/83; PULSE 46; RESP 16; TEMP 36.4; O2SAT 92
[2024-01-30 09:31] VITALS: PULSE 46
[2024-01-30] MEDS: ACETAMINOPHEN 500 MG TABLET 1000 MG PO (09:39)
[2024-01-30] MEDS: MEMANTINE HCL 10 MG TABLET PO (09:40)
[2024-01-30] MEDS: VENLAFAXINE HCL ER 37.5 MG CAPSULE PO (09:40)
--- NOTE | 2024-01-30 10:45 | P.DS_ITS ---
DS: Providers Provider Date Seen: 01/30/24 Date of admission: 01/30/24 01:27 Primary care physician: RIMMA MEDINA DO Admitting Clinician: Yvette Sutton MD Consults: OT, PT, SW Attending Physician on discharge: Ivania Schmitt MD Date of Discharge: 01/30/24 DS: Diagnosis Discharge Diagnosis (1) Weakness: Status: Acute Problem details: - had fall at home - discharging home with resumption of home care (2) Pancreatic mass: Status: Acute Problem details: - incidental finding on admission C/A/P: questionable pancreatic tail mass versus intrapancreatic splenule measuring 2.3 centimeters - outpatient f/u with multiphase pancreatic protocol CT if within goals of care (3) Dementia: Status: Chronic Problem details: - primary caregiver DS: Summary Hospital Course Hospital Course: Rene was admitted to the hospital last night after an unwitnessed fall at home. In the emergency room, no acute abnormalities were noted on CT of head, C-spine, or C/A/P (incidental finding of possible pancreatic mass). Patient kept overnight for monitoring, back to baseline this morning and appropriate for discharge home. 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 Declined any other needs at this time. Will see PCP in 7-10 days for hospital d/c followup. Time Spent with Patient Time attestation: Total time spent providing and/or coordinating discharge services: Time spent: Less than 30 minutes Exam Narrative: Exam Narrative: Rene is laying in bed, resting during my visit Appears comfortable Heart rate is regular, no concerning murmurs Lungs clear to auscultation without wheezes or crackles Extremities exhibit trace edema Const: Vital Signs, click to edit/add: Vital Signs - 24 hr 01/29/24 22:08 01/30/24 00:05 01/30/24 01:35 Temperature 97.6 F 97.6 F Pulse Rate [Left R adial] Pulse Rate [Pulse Oximeter] 48 L 46 L 42 L Respiratory Rate 16 16 16 Blood Pressure [Le ft Arm] 158/83 H Blood Pressure [Ri ght Upper Arm] 189/82 H 152/71 H Pulse Oximetry 96 96 99 Oxygen Delivery Me thod Room Air Room Air Room Air 01/30/24 02:32 01/30/24 02:32 01/30/24 08:48 Temperature 97.6 F 97.5 F L Pulse Rate [Left R adial] 46 L Pulse Rate [Pulse Oximeter] 42 L Respiratory Rate 16 16 16 Blood Pressure [Le ft Arm] 158/83 H 138/83 Blood Pressure [Ri ght Upper Arm] Pulse Oximetry 99 99 92 Oxygen Delivery Me thod Room Air Room Air Room Air 01/30/24 09:31 Temperature Pulse Rate [Left R adial] 46 L Pulse Rate [Pulse Oximeter] Respiratory Rate Blood Pressure [Le ft Arm] Blood Pressure [Ri ght Upper Arm] Pulse Oximetry Oxygen Delivery Me thod DS: Data Data Completed and Pending Labs on day of discharge: Labs from last 24 hours 01/29/24 01/29/24 22:21 22:11 WBC 4.72 RBC 4.13 L Hgb 13.3 L Hct 41.1 MCV 100 MCH 32 MCHC 32 RDW Coeff of Moira 12.4 Plt Count 184 Neut % (Auto) 40.5 L Lymph % (Auto) 35.6 Harnett % (Auto) 14.8 H Eos % (Auto) 7.6 H Baso % (Auto) 0.4 Neut # (Auto) 1.90 Lymph # (Auto) 1.68 Harnett # (Auto) 0.70 Eos # (Auto) 0.40 Baso # (Auto) 0.02 Abs Immat Gran (auto) 0.05 Imm/Tot Granulo (auto) 1.1 Sodium 142 Potassium 4.1 Chloride 106 Carbon Dioxide 24 Anion Gap 12 BUN 26 Creatinine 1.6 H Estimated GFR 42 Glucose 97 Calcium 9.9 Troponin I 0.01 POC Creatinine 1.6 H Discharge Plan Discharge Disposition: Home, Self-Care Date of Admission: 01/30/24 01:27 Attending Provider on Discharge: Ivania Schmitt Primary Care Provider: RIMMA MEDINA Discharge Medications: Continued tamsulosin 0.4 mg capsule 0.4 mg PO DAILY@1300 memantine 10 mg tablet 10 mg PO BID venlafaxine 37.5 mg capsule,extended release 24hr 37.5 mg PO DAILY donepezil 10 mg tablet 10 mg PO HS acetaminophen 500 mg capsule 1,000 mg PO TID cetirizine 10 mg tablet 10 mg PO DAILY melatonin 3 mg tablet 3 mg PO HS potassium citrate 99 mg capsule 99 mg PO BID tramadol 50 mg tablet 25 - 50 mg PO TID PRN sennosides [Patti-jose] 8.6 mg tablet 8.6 mg PO HS PRN cholecalciferol (vitamin D3) 50 mcg (2,000 unit) capsule 50 mcg PO DAILY Discharge Orders: Discharge Order (Routine); Ordered 01/30/24 Ordered By: Ivania Schmitt Additional Instructions: Consider further imaging of the pancreas for the mass noted on CT in the ER. No changes to home medications. Continue home care. Activity Level: Activity as Tolerated Discharge Diet: Regular Follow Up Appointments: RIMMA MEDINA DO [Primary Care Provider] - (please make a hospital f/u with Dr. Rimma Medina in the next 5-7 days) Forms: [id number] Info Instructions
--- NOTE | 2024-01-30 11:00 | PC.SOCIAL ---
Addendum entered and electronically signed by KIRILL Grubbs Student Medical Assistant Cardiology 01/30/24 12:36: Social work wildlife biology internship secure emailed homecare orders to [email or web address], with [facility]. Pt currently pays privately for nursing and homehealth aide with [facility]. Lola is going to resubmit the case to insurance with the added PT/OT orders to see if the care will be covered by insurance now. Social work wildlife biology internship also secure emailed the discharge summary and face sheet to Lola. Social work to follow up as needed. Original Note: Social work: Met with pt and in room. is pleased with plan for discharge home today. She and pt live in independent apartment on [address] [facility]. She is aware and agrees with me resuming orders for home care. is aware of the increased levels of care available on the [facility] and states they will move to another area if needed but currently are staying in their apartment. was appreciative of social work visit. foster care social worker to follow up with order for home care.
--- NOTE | 2024-01-30 12:25 | PC.NURSE ---
Discharge: patient one assist, walker and gait belt. Dressed with assist. No IV present at time of discharge. Discharge instructions and follow up reviewed with patients and . Discharged @ 1213.
== END 2024-01-30 12:13 | disposition home or self-care (01) ==
LOC: ED 01-30 00:22 → MEDSURG 01-30 01:28
PROVIDERS: Admitting Provider Internal Medicine; Emergency Provider Student in an Organized Health Care Education/Training Program; PCP Student in an Organized Health Care Education/Training Program; Visit Provider Internal Medicine
DX: R53.1 Weakness (principal); F03.90 Unspecified dementia, unspecified severity, without behavioral disturbance, psychotic disturbance, mood disturbance, and anxiety; M54.9 Dorsalgia, unspecified; W19.XXXA Unspecified fall, initial encounter; Y92.099 Unspecified place in other non-institutional residence as the place of occurrence of the external cause; I62.03 Nontraumatic chronic subdural hemorrhage; K86.9 Disease of pancreas, unspecified; I10 Essential (primary) hypertension; N40.0 Benign prostatic hyperplasia without lower urinary tract symptoms
CPT/HCPCS: 70450; 71260; 72125; 74177; 80048; 82565; 84484; 85025; 93005; 97161; 97165; 97535; 99283; 99285; A9270; G0378; Q9967

== ENCOUNTER 2024-01-31 07:20 | Outpatient (CLI) | payer MEDICARE, BC, SELFPAY ==
--- OUTSIDE RECORDS SUMMARY | 2024-02-03 04:23 | XMS_ITS | Clinical Summary ---
Author Organization [facility] Address [address] [place] [address] Care Team Providers Care Librarian Assistant Name Role Phone Found, No Pcp MD [...] for each transition of care or referral. [facility] Allergies No known active [...] Take 1 Tablet by mouth. 02/03/2014 Active [place]-3 (AKA FISH OIL) 1000 MG capsule Take [...] age to complete this topic Care Teams Librarian Assistant Relationship Specialty Start Date End Date Found, No Pcp, [address] [place] [address] PCP - General 11/30/19
--- OUTSIDE RECORDS SUMMARY | 2024-02-03 04:23 | XMS_ITS | Encounter Summary ---
Author Organization [place] Address [facility] [place] [address] Care Team Providers Care Dry Mixer Name Role Phone Brandan Griffin MD Primary Care Provider [phone] Encounter Details Date Type Department Care Team (Late st Contact Info) Description 08/18/2017 [facility] [address] [place] [address] 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 Gender Identity Not on file Sexual Orientation Not on file documented as of this encounter Plan of Treatment Not on file documented as of this encounter Visit Diagnoses Diagnosis Pre-operative laboratory examination- Primary Pre-procedural laboratory examination documented in this encounter Additional Health Concerns Infection Onset Date Last Indicated Resolved Time MRSA 08/18/2017 08/18/2017 documented as of this encounter Care Teams Dry Mixer Relationship Specialty Start Date End Date Brandan Griffin MD [address] [place], [place] [address] PCP - General Internal Medicine 07/19/14 documented as of this encounter
--- OUTSIDE RECORDS SUMMARY | 2024-02-03 04:23 | XMS_ITS | Encounter Summary ---
Author Organization [facility] Address [address] [place] [address] Care Team Providers Care Pvc Loader Name Role Phone Found, No Pcp Primary Care Provider Unavailab le Encounter Details Date Type Department Care Team (Late st Contact Info) Description 10/04/2020 Lab Requisition [facility] [address] [place], [place] [phone] Salinas Clifford MD [address] [facility] [address] [place], [place] [id number] Encounter for screening for respiratory tuberculosis Social [...] MITOGEN >10.000 IU/mL 10/09/2020 11:14 AM CDT [facility] Blood Venipuncture / Unknown 10/05/2020 2:33 PM CDT 10/05/2020 9:17 PM CDT Salinas Clifford MD LAB_1 Performing Organization Address [facility] Co de Phone Number [facility] [address] [place] [address] * TB QuantiFERON Gold Plus TB2 (10/05/2020 2:33 PM CDT) TB2 0.000 IU/mL 10/09/2020 11:14 AM CDT [facility] Blood Venipuncture / Unknown 10/05/2020 2:33 PM CDT 10/05/2020 9:17 PM CDT Salinas Clifford MD LAB_1 Performing Organization Address [facility] Phone Number [facility] [address] [place] [address] * TB QuantiFERON Gold Plus TB1 (10/05/2020 2:33 PM CDT) TB1 0.189 IU/mL 10/09/2020 11:14 AM CDT [facility] Blood Venipuncture / Unknown 10/05/2020 2:33 PM CDT 10/05/2020 9:17 PM CDT Salinas Clifford MD LAB_1 Performing Organization Address [facility] Co de Phone Number [facility] [address] [place] [address] * TB QuantiFERON Gold Plus NIL (10/05/2020 2:33 PM CDT) [facility] TB QuantiFERON Gold Plus Negative, M. tuberculosis Infection NOT likely Negative, M. tuberculosis Infection NOT likely 10/09/2020 11:22 AM CDT [facility] NIL 0.000 IU/mL 10/09/2020 11:22 AM CDT [facility] TB1-NIL 0.19 IU/mL 10/09/2020 11:22 AM CDT [facility] TB2-NIL 0.00 IU/mL 10/09/2020 11:22 AM CDT [facility] Mitogen-NIL 10.00 IU/mL 10/09/2020 11:22 AM CDT [facility] Blood Venipuncture / Unknown 10/05/2020 2:33 PM CDT 10/05/2020 9:17 PM CDT [facility] - 10/09/2020 11:22 AM CDT Nil TB1-Nil TB2-Nil Mitogen-Nil Result Interpretation (IU/ml) (IU/mL) (IU/mL) (IU/mL) <=8.0 >=0.35 & Any Any Positive M. tuberculosis >=25% Nil infection likely <=8.0 Any >=0.35 & Any Positive M. tuberculosis >=25% Nil infection likely <=8.0 <0.35 or <0.35 or >=0.50 Negative M. tuberculosis >=0.35 & >=0.35 & infection NOT <25% Nil <25% Nil likely <=8.0 <0.35 or <0.35 or <0.50 Indeterminate M. tuberculosis >=0.35 & >=0.35 & infection cannot <25% Nil <25% Nil be determined >8.0 Any Any Any Indeterminate M. tuberculosis infection cannot be determined. Important: Diagnosing or excluding tuberculosis [...] production by lymphocytes. Salinas Clifford MD LAB_1 [facility] [address] [place] [address], [facility] documented in this encounter Visit Diagnoses Diagnosis Encounter for screening for respiratory tuberculosis Screening examination for pulmonary tuberculosis documented in this encounter Care Teams Pvc Loader Relationship Specialty Start Date End Date Found, No Pcp, [address] [place] [address] PCP - General 11/30/19 documented as of this encounter
--- OUTSIDE RECORDS SUMMARY | 2024-02-03 04:23 | XMS_ITS | Encounter Summary ---
Author Organization [place] Address [address] [facility] [place] [address] Care Team Providers Care Cross Enterprise Integrator Name Role Phone Brandan Griffin MD Primary Care Provider [phone] Encounter Details Date Type Department Care Team (Late st Contact Info) Description 08/15/[address] 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 aureus PCR (08/18/2017 12:00 PM CDT) Specimen Description Opal 08/18/2017 4:04 PM CDT [facility] Methicillin Resist/Sens S. aureus PCR Positive( A) NEG^Negat alonso 08/18/2017 10:[address] [facility] Comment: MRSA Positive: SA Positive MRSA and Staphylococcus aureus target DNA detected, presumed positive for MRSA and SA colonization. A positive test does not necessarily indicate the presence of viable organisms. It is,however, presumptive for the presence of MRSA or SA. FDA approved assay performed using [employer] GeneXpert(R) real-time PCR. Nasal structure (body structure) 08/18/2017 12:00 PM CDT 08/18/2017 4:05 PM CDT us Reji Michael MD LAB - MICRO GENERAL ORDERABLE S Final Result [facility] [address] [place], [place] [address] [place] [address] [address] [place], [place] [address] [phone] documented in this encounter Visit Diagnoses Diagnosis Pre-operative laboratory examination- Primary Pre-procedural laboratory examination documented in this encounter Additional Health Concerns Infection Onset Date Last Indicated Resolved Time MRSA 08/18/2017 08/18/2017 documented as of this encounter Care Teams Cross Enterprise Integrator Relationship Specialty Start Date End Date Brandan Griffin MD [address] [place] [address] PCP - General Internal Medicine 07/19/14 documented as of this encounter
--- OUTSIDE RECORDS SUMMARY | 2024-02-03 04:23 | XMS_ITS | Clinical Summary ---
Author Organization [facility] Address [address] [place] [address]. 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 Gender Identity Not on file Sexual Orientation [...] on file Medical Devices Implanted Type Area Sustain Engineer Device Identifier Shelf Expiration Date Model / Serial / Lot Imp Scr Bone Can Joseluis 6.5x30mm [id number] Implanted:Qty: 1 on 09/08/2017 by Reji Michael MD at [facility] Metallic Hardware/An chor Left: Hip [employer] 12/14/2024 [id number] / / [id number] Imp Scr Bone Can Joseluis 6.5x30mm [id number] Implanted:Qty: 1 on 09/08/2017 by Reji Michael MD at [facility] Metallic Hardware/An chor Left: Hip [employer] 05/15/2027 [id number] / / [id number] Imp Cup Joseluis Ackley 64mm 1214-22-084 Implanted:Qty: 1 on 09/08/2017 by Reji Michael MD at [facility] Total Joint Component/I nsert Left: Hip [employer] 02/13/2027 [id number] / / [id number] Imp Stem Fem Hip Depuy [place] Tpr Sz 8 Hi Off 1570-11-150 Implanted:Qty: 1 on 09/08/2017 by Reji Michael MD at [facility] Total Joint Component/I nsert Left: Hip [employer] 05/15/2027 1570-11-150 / / [id number] Imp Head Femoral Depuy 36mm +5 1365-52-000 Implanted:Qty: 1 on 09/08/2017 by Reji Michael MD at [facility] Total Joint Component/I nsert Left: Hip [employer] 01/14/2022 [id number] / / [id number] Ackley Altrx Acetabular Liner +4 10 Degree 36mm Id / 64mm Od Implanted:Qty: 1 on 09/08/2017 by Reji Michael MD at [facility] Left: Hip Depuy 02/13/2021 1221-36-164 / / [id number] Additional Health Concerns Infection Onset Date Last Indicated MRSA 08/18/2017 08/18/2017 Insurance MEDICARE [facility] MEDICARE SUPPLEMENT Advance Directives For more information, please contact: [phone] Documents on File Type Date Recorded Patient Assistant Track And Field Coach Expl anation Advance Directives and Living Will [...] Agents on File Name Relationship Healthcare Agent Gamasd rené Communication Rachael Perez Spouse Health Care Agent Care Teams Line Tester Relationship Specialty Start Date End Date Brandan Griffin MD [address] [place] [id number] PCP - General Internal Medicine 07/19/14
--- OUTSIDE RECORDS SUMMARY | 2024-02-03 04:23 | XMS_ITS | Encounter Summary ---
Author Organization [facility] Address [address], [place] [address] Care Team Providers Care Motorcycle Sales Associate Name Role Phone Found, No Pcp MD Primary Care Provider Unavailab le Encounter Details Date Type Department Care Team (Late st Contact Info) Description 08/03/2018 Lab Requisition [facility] [address] [facility] [place], [place] [id number] Kvng Boyle MD [address] [place] [address] Spinal stenosis; Essential (primary) hypertension Social History [...] - 145 mmol/L 08/04/2018 11:30 AM CDT [facility] Potassium 4.2 3.5 - 5.1 mmol/L 08/04/2018 11:30 AM CDT [facility] Chloride 103 98 - 109 mmol/L 08/04/2018 11:30 AM CDT [facility] CO2 26 20 - 29 mmol/L 08/04/2018 11:30 AM CDT [facility] Anion Gap 9 7 - 16 mmol/L 08/04/2018 11:30 AM CDT [facility] Calcium 10.3 8.4 - 10.4 mg/dL 08/04/2018 11:30 AM CDT [facility] BUN 14 7 - 26 mg/dL 08/04/2018 11:30 AM CDT [facility] Creatinine 1.06 0.73 - 1.18 mg/dL 08/04/2018 11:30 AM CDT [facility] GFR, Estimated >60 >60 mL/min/1.7 3m2 08/04/2018 11:30 AM CDT [facility] GFR, Est If >60 >60 mL/min/1.7 3m2 08/04/2018 11:30 AM CDT [facility] Albumin 3.3(L) 3.5 - 5.0 g/dL 08/04/2018 11:30 AM CDT [facility] Phosphorus 3.3 2.3 - 4.7 mg/dL 08/04/2018 11:30 AM CDT [facility] Glucose 159(H) 70 - 100 mg/dL 08/04/2018 11:30 AM CDT [facility] Comment:The given reference range is for the fasting state. Non-fasting reference range for glucose is 70 - 180 mg/dL. Hours Fasting Unknown 08/04/2018 11:30 AM CDT [facility] Blood Venipuncture / Unknown 08/04/2018 9:09 AM CDT 08/04/2018 11:13 AM CDT Kvng Boyle MD LAB_1 [facility] [address] * (ABNORMAL) Complete Blood Count-No Diff (08/04/2018 9:09 AM CDT) WBC 9.3 3.5 - 10.5 x10(9)/L 08/04/2018 11:21 AM CDT [facility] RBC 4.17(L) 4.32 - 5.72 x10(12)/L 08/04/2018 11:21 AM CDT [facility] Hemoglobin 13.0(L) 13.5 - 17.5 g/dL 08/04/2018 11:21 AM CDT [facility] HCT 41.5 38.8 - 50.0 % 08/04/2018 11:21 AM CDT [facility] MCV 99.5 80.0 - 100.0 fL 08/04/2018 11:21 AM CDT [facility] MCH 31.2 27.6 - 33.3 pg 08/04/2018 11:21 AM CDT [facility] MCHC 31.3(L) 31.5 - 35.2 g/dL 08/04/2018 11:21 AM CDT [facility] RDW 12.6 11.9 - 15.5 % 08/04/2018 11:21 AM CDT [facility] Platelets 312 150 - 450 x10(9)/L 08/04/2018 11:21 AM CDT [facility] Automated NRBC 0 <=0 /100 WBC 08/04/2018 11:21 AM CDT [facility] Blood Venipuncture / Unknown 08/04/2018 9:09 AM CDT 08/04/2018 11:12 AM CDT Kvng Boyle MD [facility] [address] [place] [address], [facility] documented in this encounter Visit Diagnoses Diagnosis Spinal stenosis Spinal stenosis, unspecified region other than cervical Essential (primary) hypertension (HRC) Unspecified essential hypertension documented in this encounter Care Teams Motorcycle Sales Associate Relationship Specialty Start Date End Date Found, No Pcp, [place] [address] PCP - General 11/30/19 documented as of this encounter
--- OUTSIDE RECORDS SUMMARY | 2024-02-03 04:23 | XMS_ITS | Referral Summary ---
Author Organization [facility] Address [facility] [place] [address] Care Team Providers Care Master Ocean Name Role Phone Brandan Griffin MD Primary Care Provider [phone] Allergies No known active allergies Medications multivitamin, [...] ointmentIndicati ons:History of total hip arthroplasty, left Richards 1 g into both nostrils 2 times [...] on file Legal Sex Male 3:[address] REFEREE Gender Identity Not on file Sexual Orientation [...] on file Medical Devices Implanted Type Area Learning Support Aide Device Identifier Shelf Expiration Date Model / Serial / Lot Imp Scr Bone Can Joseluis 6.5x30mm [id number] Implanted:Qty: 1 on 09/08/2017 by Reji Michael MD at [facility] Metallic Hardware/An chor Left: Hip [employer]- 12/14/2024 [id number] / / [id number] Imp Scr Bone Can Joseluis 6.5x30mm [id number] Implanted:Qty: 1 on 09/08/2017 by Reji Michael MD at [facility] Metallic Hardware/An chor Left: Hip [employer]- 05/15/2027 [id number] / / [id number] Imp Cup Joseluis [place] 64mm [id number] Implanted:Qty: 1 on 09/08/2017 by Rjei Michael MD at [facility] Total Joint Component/I nsert Left: Hip [employer]- 02/13/2027 [id number] / / [id number] Imp Stem Fem Hip Depuy [place] Tpr Sz 8 Hi Off 1570-11-150 Implanted:Qty: 1 on 09/08/2017 by Reji Michael MD at [facility] Total Joint Component/I nsert Left: Hip [employer] 05/15/2027 1570-11-150 / / [id number] Imp Head Femoral Depuy 36mm +5 1365-52-000 Implanted:Qty: 1 on 09/08/2017 by Reji Michael MD at [facility] Total Joint Component/I nsert Left: Hip [employer]- 01/14/2022 [id number] / / [id number] [place]well Altrx Acetabular Liner +4 10 Degree 36mm Id / 64mm Od Implanted:Qty: 1 on 09/08/2017 by Reji Michael MD at [facility] Left: Hip Depuy 02/13/2021 1221-36-164 / / [id number] Additional Health Concerns Infection Onset Date 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 MEDICARE SUPPLEMENT Advance Directives For more information, please contact: [phone] Documents on File Type Date Recorded Patient Offal Trimmer Expl anation Advance Directives and Living Will [...] Perez Spouse Health Care Agent Care Teams Master Ocean Relationship Specialty Start Date End Date Brandan Griffin MD [address] [place] [id number] PCP - General Internal Medicine 07/19/14
--- OUTSIDE RECORDS SUMMARY | 2024-02-03 04:23 | XMS_ITS | Clinical Summary ---
Author Organization [facility] Address [place], [place] [address] Care Team Providers Care Data Visualization Developer Name Role Phone Joey Ribeiro MD Unavailable Marla Medina DO Primary Care Provider [phone] [facility] Care, Muriel Unavailable Allergies Active Allergy Reactions [...] by mouth once daily. 0 9 Active Vnurx-2-JCM-EPA-Fi sh Oil 1,000 mg (120 mg-180 mg) [...] ADMITTED DUE LACK OF A TERMINAL PROGNOSIS. [facility] Physician Note Verification of Hospice Diagnosis Rene Perez Date of : 1940 Primary Terminal Diagnosis: Alzheimer disease, late onset Rene Perez is a 83 y.o. male with a history of Alzheimer's disease confirmed by MRI of the brain in June 2022. Rene Perez is NOT terminally ill due to the above listed diagnoses, discussed 05/21/23 with Víctor Hastings RN, [facility] with progressive cognitive decline, PPS= [...] 1 TABLET(10 MG) BY MOUTH TWICE DAILY Pewin-9-PEV-EPA-Fish Oil 1,000 mg (120 mg-180 mg) cap [...] DAY WITH A MEAL Howard Cole MD [facility] Reji Cole MD [...] 01/08/18 PABLITO Zaidi Advance Care Planning Educator [phone] History of total hip arthroplasty, left 09/09/19 [...] Department Care Team Description 01/31/2024 Orders Only [facility] Scanner 1 scan: (1-Ord) [facility], SHOULDER LT MIN 2V, 01/31/2024 2024 Orders Only [facility] Scanner 1 scan: (1-Ord) [facility], CT CERVICAL SPINE, 2024 2024 Orders Only [facility] Scanner 1 scan: (1-Ord) [place], CT CHEST ABDOMEN PELV W CON, 2024 2024 Orders Only [facility] Scanner 1 scan: (1-Ord) [facility], HEAD/BRAIN WO CON , 2024 12/27/2023 Refill [facility] [address] [place] [address] Marla Medina, DO Refill Request (Memantine) 12/23/2023 Refill [facility] [address] [place] [address] Marla Medina, DO Refill Request (Memantine) 12/07/2023 Refill [facility] [address] [place] [address] Marla Medina, Refill Request (Venlafaxine, Cetirizine) 11/21/2023 12:25 PM CDT Office Visit [facility] [address] [facility] [address] Marla Medina, Concerns (Continuing diarrhea /Weakness - difficulty moving around - stiffness in bilateral legs) 11/21/2023 Travel 11/14/2023 Refill [facility] [address] [facility] [address] Marla Medina DO Refill Request (Tamsulosin) 11/10/2023 Telephone [facility] [address] [place] [address] Marla eMdina, Questions from Last 3 Months Immunizations Name Administration Dates Next Due COVID-19 vaccine (FileTrek-Bio NTBrainrack 30mcg/0.3mL) 12YO+ SCOTT-SUCROSE PF, MDV 10/02/2021 COVID-19 vaccine (FileTrek-BioNTBrainrack 30mcg/0.3mL) P F, MDV 05/13/2020,04/22/2020 Influenza A [...] 36.9 C (98.5 F) 05/21/2023 1:48 PM [facility] PAD Respiratory Rate 15 05/21/2023 1:48 PM [facility] SH[facility] PAD Oxygen Saturation 97% 11/21/2023 12: 44 PM [...] Diagnosis Comments SCAN-RADIOLOGY REPORT 01/31/2024 12:00 AM MOLDER SHOULDER PAD SCAN-CT INTERPRETATION 4 12:00 AM [facility]OL[facility] SHOULDER PAD SCAN-CT INTERPRETATION 4 12:00 AM MOLDER SHOULDER PAD SCAN-CT INTERPRETATION 4 12:00 AM MOLDER SHOULDER PAD BASIC METABOLIC PANEL Routine 11/21/2023 1:41 PM CDT Medicare annual wellness visit, subsequent from Last 3 Months Results * SCAN-RADIOLOGY REPORT (01/31/2024 12:00 AM MOL[facility] SHOULDER PAD) Anatomical Region Laterality Modality Other Scanner OTHER * SCAN-CT INTERPRETATION (2024 12:00 AM [facility] SHOULD[facility] PAD) Only the most recent of3 resultswithin the time period is included. Anatomical Region Laterality Modality Other Scanner OTHER * (ABNORMAL) BASIC METABOLIC PANEL (11/21/2023 1:41 PM CDT) SODIUM 142 136 - 145 mmol/L 11/21/2023 11:32 PM CDT [facility] POTASSIUM 4.3 3.5 - 5.1 mmol/L 11/21/2023 11:32 PM CDT [facility] CHLORIDE 107 98 - 107 mmol/L 11/21/2023 11:32 PM CDT [facility] CO2,TOTAL 22 22 - 29 mmol/L 11/21/2023 11:32 PM CDT [facility] ANION GAP 13 5 - 18 11/21/2023 11:32 PM CDT [facility] GLUCOSE 99 70 - 99 mg/dL 11/21/2023 11:32 PM CDT [facility] CALCIUM 9.8 8.8 - 10.2 mg/dL 11/21/2023 11:32 PM CDT [facility] BUN 21 8 - 23 mg/dL 11/21/2023 11:32 PM T [facility] CREATININE 1.50(H) 0.70 - 1.20 mg/dL 11/21/2023 11:32 PM CDT [facility] BUN/CREAT RATIO 14 10 - 20 11:32 PM CDT [facility] eGFR 45(L) >90 mL/min/1.7 3m2 11/21/2023 11:32 PM CDT [facility] Comment:As of 2021, eG [...] 1:43 PM CDT [place] Crisostomojennifer AMAYA CHEMISTR[facility] [address] [place] [id number], from Last 3 Months Advance Directives Documents on File Type Date Recorded Patient Childbirth Educator Expl anation Treatment Guidelines 01/20/2024 POLST 03/25/2023 11:00 AM Healthcare Directive 01/15/2018 10:00 AM 1 * Full Code (Latest Code Status on File) Date Activated Date Inactivated Comments 08/06/2017 5:48 AM 08/06/2017 4:11 PM * Full Code Date Activated Date Inactivated Comments 08/17/2006 5:10 PM 08/19/2006 1:10 PM Care Teams Data Visualization Developer Relationship Specialty Start Date End Date Marla Medina DO [address] [place] [address] PCP - General Family Practice 10/23/21 Joey Ribeiro MD Urology Surgery - Urology 11/28/[address] [address] 05/16/23
== END 2024-01-31 07:21 | disposition home or self-care (01) ==
LOC: AMB 02-03 04:21
PROVIDERS: PCP Student in an Organized Health Care Education/Training Program; Visit Provider Family Medicine
DX: R53.1 Weakness (principal); F03.90 Unspecified dementia, unspecified severity, without behavioral disturbance, psychotic disturbance, mood disturbance, and anxiety
CPT/HCPCS: A0425; A0429

== ENCOUNTER 2024-01-31 07:38 | Inpatient (IN) | payer MEDICARE, BC, SELFPAY ==
[2024-01-31] VITALS (21 sets, daily range): BP systolic 144–197; BP diastolic 71–94; PULSE 32–58; RESP 14–20; TEMP 35.8–36.4; O2SAT 91–98; BMI 23.7; BMI 27.6
--- NOTE | 2024-01-31 08:22 | ED.GENADULT ---
HPI - General Adult General Chief complaint: Fall/Minor Trauma Stated complaint: multiple falls Time Seen by Provider: 01/31/24 08:08 History of Present Illness HPI narrative: Patient is an 84-year-old gentleman who has significant dementia. He was seen 2 days ago here in the emergency room and was admitted after a fall. He had a full trauma workup and did not appear to be injured however he was not at baseline and his did not feel comfortable taking her home. Spent the night in the hospital was discharged home yesterday. Patient became very agitated last night and wrestled his a number of times. Patient spent the night sleeping on the floor after for Tessalon with his . She states he did not his head and did not hurt his neck. Patient has been having increased agitation as part of his dementia. Patient is very sleepy as he has been waking most of the night. He has nose complaints of skin tears or pain. He has noted have a pulse of 35. This been noted in the past and EKG shows sinus bradycardia. They have been advised against pacemaker placement due to his dementia. Related Data Home Medications ?Medication ?Instructions ?Recorded ?Confirmed acetaminophen 500 mg capsule 1,000 mg PO TID 08/20/22 01/30/24 donepezil 10 mg tablet 10 mg PO HS 08/20/22 01/30/24 memantine 10 mg tablet 10 mg PO BID 08/20/22 01/30/24 tamsulosin 0.4 mg capsule 0.4 mg PO DAILY@1300 08/20/22 01/30/24 venlafaxine 37.5 mg 37.5 mg PO DAILY 08/20/22 01/30/24 capsule,extended release 24 hr cholecalciferol (vitamin D3) 50 50 mcg PO DAILY 08/26/22 01/30/24 mcg (2,000 unit) capsule potassium citrate 99 mg capsule 99 mg PO BID 08/26/22 01/30/24 sennosides 8.6 mg tablet (Patti-jose) 8.6 mg PO HS PRN 08/26/22 01/30/24 tramadol 50 mg tablet 25 - 50 mg PO TID PRN 08/26/22 01/30/24 cetirizine 10 mg tablet 10 mg PO DAILY 01/30/24 01/30/24 melatonin 3 mg tablet 3 mg PO HS 01/30/24 01/30/24 Allergies Allergy/AdvReac Type Severity Reaction Status Date / Time No Known Drug Allergies Allergy Verified 08/25/22 14:23 Review of Systems Status of ROS: Reports: 10 or more systems reviewed and unremarkable except as noted in History and below PFSH [facility] Medical History Chronic GERD ?K21.9 - Gastro-esophageal reflux disease without esophagitis (ICD-10) Diverticulitis ?K57.92 - Diverticulitis of intestine, part unspecified, without perforation or abscess without bleeding (ICD-10) BPH (benign prostatic hyperplasia) ?N40.0 - Benign prostatic hyperplasia without lower urinary tract symptoms (ICD-10) Depression ?F32.A - Depression, unspecified (ICD-10) Hypertension ?I10 - Essential (primary) hypertension (ICD-10) Dementia ?F03.90 - Unspecified dementia, unspecified severity, without behavioral disturbance, psychotic disturbance, mood disturbance, and anxiety (ICD-10) Chronic subdural hematoma ?I62.03 - Nontraumatic chronic subdural hemorrhage (ICD-10) Spinal stenosis ?M48.00 - Spinal stenosis, site unspecified (ICD-10) Surgical History H/O lithotripsy ?Z98.890 - Other specified postprocedural states (ICD-10) History of bowel resection ?Z90.49 - Acquired absence of other specified parts of digestive tract (ICD-10) S/P hip replacement ?Z96.649 - Presence of unspecified artificial hip joint (ICD-10) S/P TURP ?Z90.79 - Acquired absence of other genital organ(s) (ICD-10) History of lumbar fusion ?Z98.1 - Arthrodesis status (ICD-10) Social History What is your current living situation?: I presently have a place to live Problems where you live: no known problems Problems where you live details: [facility] independent living, h/o falls In the past 12 months, utilities in danger of being shut off: no In the past 12 mos, have been you worried that your food would run out before you had money to buy more?: never true In the past 12 mos, the food you bought just didn't last and you didn't have money to buy more?: never true Smoking Status: Former smoker What tobacco products do you use: cigarettes Smoking quit date/years: >15 years ago Do you use any of these nicotine containing products: None Second hand tobacco smoke exposure: No How often do you have a drink containing alcohol: never How often do you have six or more drinks on one occasion: Never AUDIT-C Alcohol total score: 0 Non-prescribed substance use: denies use Caffeine: Yes How often does anyone, including family, friends and others, physically hurt you: never How often does anyone, including family, friends and others, insult or talk down to you: never How often does anyone, including family, friends and others, threaten you with harm: never How often does anyone, including family, friends and others, scream or curse at you: never service: No Exam Narrative: Exam Narrative: EXAM GENERAL: Patient appears to be very sleepy. No signs of recent trauma. EYES: No scleral icterus. LYMPH: No supraclavicular or cervical lymphadenopathy. SKIN: Visible skin seen during exam normal or with benign process only. EXT: No dependent lower extremity pedal edema. HEART: Bradycardic heart rhythm noted. No obvious rubs or clicks. No murmurs. LUNGS: Clear to auscultation bilaterally with no crackles or wheezes. ABD: Soft, non tender, non distended. PSYCH: Good eye contact, speech is not pressured. Neurologic cranial nerves 2-12 grossly intact although patient does not cooperate well. Const: Vital Signs, click to edit/add: Vital Signs - 24 hr 01/31/24 07:48 01/31/24 07:49 01/31/24 07:56 Temperature 97.6 F Pulse Rate 35 L 35 L Pulse Rate [Pulse Oximeter] 35 L Respiratory Rate 16 Blood Pressure 179/81 H Blood Pressure [Ri ght Upper Arm] 179/81 H Pulse Oximetry 96 95 98 Oxygen Delivery Me thod Room Air Oxygen Flow Rate 01/31/24 08:00 01/31/24 08:13 01/31/24 08:15 Temperature Pulse Rate 58 L 34 L 33 L Pulse Rate [Pulse Oximeter] Respiratory Rate 16 Blood Pressure 197/88 H Blood Pressure [Ri ght Upper Arm] Pulse Oximetry 94 95 93 Oxygen Delivery Me thod Oxygen Flow Rate 01/31/24 08:22 01/31/24 08:30 01/31/24 08:42 Temperature Pulse Rate 35 L 35 L Pulse Rate [Pulse Oximeter] Respiratory Rate Blood Pressure 166/94 H Blood Pressure [Ri ght Upper Arm] Pulse Oximetry 93 91 93 Oxygen Delivery Me thod Nasal Cannula Oxygen Flow Rate 2 Course Course ED Course: Patient seen with increased agitation. Will send off comprehensive metabolic panel CBC UA troponin and likely need to admit for placement. Vital Signs Vital signs: Initial Vital Signs Pulse Rate 35 L 01/31/24 07:48 Blood Pressure 179/81 H 01/31/24 07:48 Blood Pressure Mean 113 H 01/31/24 07:48 Pulse Oximetry 96 01/31/24 07:48 Vital Signs Pulse Rate 35 L 01/31/24 07:48 Blood Pressure 179/81 H 01/31/24 07:48 Pulse Oximetry 96 01/31/24 07:48 Temperature 97.6 F 01/31/24 07:56 Pulse Rate 35 L 01/31/24 08:30 Respiratory Rate 16 01/31/24 08:13 Blood Pressure 166/94 H 01/31/24 08:22 Pulse Oximetry 93 01/31/24 08:42 Oxygen Delivery Method Nasal Cannula 01/31/24 08:42 Oxygen Flow Rate 2 01/31/24 08:42 Medical Decision Making [facility] Narrative Medical decision making narrative: Patient presents with increased agitation at home. Patient is very sleepy after a night of agitation. He at this time is medically stable and can go to the hospital floor. I did have a nice discussion with the patient's as I do not believe sending him home is in his best interest due to his increasing agitation in the risk of injury to him or her. At this time patient is admitted to observation with likely prison/memory care stay to follow. No acute findings on laboratory studies. Repeat imaging not done due to lack of findings on exam and comorbidities. He is asymptomatic leave bradycardic but has been advised against further intervention previously. Lab Data Labs: Lab Results 01/31/24 Range/Units 08:12 WBC 5.04 (4.50-11.00) K/uL RBC 4.17 L (4.30-5.90) m/uL Hgb 13.3 L (13.5-17.5) gm/dL Hct 41.4 (37.0-53.0) % MCV 99 (80-100) fL MCH 32 (26-34) pg MCHC 32 (32-36) gm/dL RDW Coeff of Moira 12.8 (11.5-15.5) % Plt Count 174 (140-440) K/uL Neut % (Auto) 52.1 (42.0-72.0) % Lymph % (Auto) 26.4 (20-44) % [place] % (Auto) 15.9 H (0.0-11.0) % Eos % (Auto) 4.8 (0.0-7.0) % Baso % (Auto) 0.4 (0.0-3.0) % Neut # (Auto) 2.63 (1.7-7.0) K/uL Lymph # (Auto) 1.33 (0.90-2.90) K/uL [place] # (Auto) 0.80 (0.00-0.90) K/UL Eos # (Auto) 0.24 (0.00-0.50) K/uL Baso # (Auto) 0.02 (0.00-0.30) K/uL Abs Immat Gran (auto) 0.02 (0.00-0.30) K/uL Imm/Tot Granulo (auto) 0.4 % Sodium 142 (135-149) mmol/L Potassium 4.4 (3.6-5.1) mmol/L Chloride 109 (96-114) mmol/L Carbon Dioxide 23 (20-32) mmol/L Anion Gap 10 (7-15) mEq/L BUN 22 (7-30) mg/dL Creatinine 1.5 (0.5-1.5) mg/dL Estimated Creat Clear 36.50 Estimated GFR 45 ml/min Glucose 95 (60-115) mg/dL Calcium 9.7 (8.4-10.6) mg/dL Total Bilirubin 0.6 (0.1-1.5) mg/dL AST 24 (12-35) U/L ALT 13 (4-50) U/L Alkaline Phosphatase 39 L (40-150) U/L Troponin I 0.02 (0.01-0.04) ng/mL Total Protein 6.8 (6.0-8.3) g/dL Albumin 4.3 (3.3-5.0) g/dL Discharge Plan Discharge Clinical Impression: Dementia Activity Level: Other Discharge Diet: Other Prescriptions: No Action tamsulosin 0.4 mg capsule 0.4 mg PO DAILY@1300 memantine 10 mg tablet 10 mg PO BID venlafaxine 37.5 mg capsule,extended release 24hr 37.5 mg PO DAILY donepezil 10 mg tablet 10 mg PO HS acetaminophen 500 mg capsule 1,000 mg PO TID cetirizine 10 mg tablet 10 mg PO DAILY melatonin 3 mg tablet 3 mg PO HS potassium citrate 99 mg capsule 99 mg PO BID tramadol 50 mg tablet 25 - 50 mg PO TID PRN sennosides [Patti-jose] 8.6 mg tablet 8.6 mg PO HS PRN cholecalciferol (vitamin D3) 50 mcg (2,000 unit) capsule 50 mcg PO DAILY Follow Up/Referrals: RIMMA KINCAID DO [Primary Care Provider] - Stand Alone Forms: [facility] Info Instructions
[2024-01-31 08:24] LABS: Basophils Absolute Auto 0.02 K/uL (0.00-0.30); Basophils Percent Auto 0.4 % (0.0-3.0); Eosinophils Absolute Auto 0.24 K/uL (0.00-0.50); Eosinophils Percent Auto 4.8 % (0.0-7.0); Hematocrit 41.4 % (37.0-53.0); Hemoglobin* 13.3 gm/dL (13.5-17.5); Immature Granulocytes Abs Auto 0.02 K/uL (0.00-0.30); Immature Granulocytes Pct Auto 0.4 %; Lymphocytes Absolute Auto 1.33 K/uL (0.90-2.90); Lymphocytes Percent Auto 26.4 % (20-44); Mean Corpuscular HGB Conc 32 gm/dL (32-36); Mean Corpuscular Hemoglobin 32 pg (26-34); Mean Corpuscular Volume 99 fL (80-100); Monocytes Percent Auto 15.9 % (0.0-11.0); Neutrophils Absolute Auto 2.63 K/uL (1.7-7.0); Neutrophils Percent Auto 52.1 % (42.0-72.0); Platelet Count* 174 K/uL (140-440); RDW Coefficient of Variation % 12.8 % (11.5-15.5); Red Blood Count 4.17 m/uL (4.30-5.90); White Blood Count* 5.04 K/uL (4.50-11.00)
--- OUTSIDE RECORDS SUMMARY | 2024-01-31 08:25 | XMS_ITS | Clinical Summary ---
Author Organization [facility] Address [place], [place] [address] Care Team Providers Care Scientific Linguist Name Role Phone Joey Ribeiro MD Unavailable Marla Medina DO Primary Care Provider [facility], Muriel Unavailable Allergies Active Allergy [...] by mouth once daily. 0 9 Active Mjmck-2-SPE-EPA-Fi sh Oil 1,000 mg (120 mg-180 mg) [...] ADMITTED DUE LACK OF A TERMINAL PROGNOSIS. [facility] Physician Note Verification of Hospice Diagnosis Rene Perez Date of : 1940 Primary Terminal Diagnosis: Alzheimer disease, late onset Rene Perez is a 83 y.o. male with a history of Alzheimer's disease confirmed by MRI of the brain in June 2022. Rene Perez is NOT terminally ill due to the above listed diagnoses, discussed 05/21/23 with Víctor Hastings RN, [facility] with progressive cognitive decline, PPS= 50% (from [...] 1 TABLET(10 MG) BY MOUTH TWICE DAILY Sdxep-9-OOY-EPA-Fish Oil 1,000 mg (120 mg-180 mg) cap [...] DAY WITH A MEAL Howard Cole MD [facility] Reji Cole [...] 01/08/18 PABLITO Zaidi Advance Care Planning Educator [phone] History of total hip arthroplasty, left 09/09/19 [...] Encounters Date Type Department Care Team Description 2024 Orders Only [facility] Scanner 1 scan: (1-Ord) [facility], HEAD/BRAIN WO CON , 2024 12/27/2023 Refill [facility] [address] [place] [address] Marla Medina DO Refill Request (Memantine) 12/23/2023 Refill [facility] [address] [place] [address] Marla Medina DO Refill Request (Memantine) 12/07/2023 Refill [facility] [address] [place] [address] Marla Medina DO Refill Request (Venlafaxine, Cetirizine) 11/21/2023 12:25 PM CDT Office Visit [facility] [address] [place] [address] Marla Medina DO Concerns (Continuing diarrhea /Weakness - difficulty moving around - stiffness in bilateral legs) 11/21/2023 Travel 11/14/2023 Refill [facility] [address] [place] [address] Marla Medina DO Refill Request (Tamsulosin) 11/10/2023 Telephone [facility] [address] [place] [address] Marla Medina, DO Questions from Last 3 Months Immunizations Name Administration Dates Next Due COVID-19 vaccine (Pfizer-Bio NTech 30mcg/0.3mL) 12YO+ SCOTT-SUCROSE PF, MDV 10/02/2021 COVID-19 vaccine (Pfizer-BioNTech 30mcg/0.3mL) P F, MDV 05/13/2020,04/22/2020 Influenza A [...] T Respiratory Rate 15 05/21/2023 1:48 PM TRANSACTIONAL ATTORNEY Oxygen Saturation 97% 11/21/2023 12: 44 PM CDT Inhaled Oxygen Concentration - - Weight 86.5 kg (190 lb 12.8 oz) 024 12:44 PM CDT Height 177 cm (5' 9.7) 10/18/2022 2:41 PM CDT Body Mass Index 27.61 10/18/2022 2:41 PM CDT Plan of Treatment Upcoming Encounters Date Type Department Care Team (Late st Contact Info) Description 02/03/2024 1:40 PM TRANSACTIONAL ATTORNEY Office Visit [facility] [address] [place] [address] Marla Medina DO [address] [place] [address] Health Maintenance Due Date Last Done Comments RSV vaccine for adults or pr egnancy (1 - 1-dose 75+ series) 2013 Procedures Procedure Name Priority Date/Time Associated Diagnosis Comments SCAN-CT INTERPRETATION 12:00 AM TRANSACTIONAL ATTORNEY BASIC METABOLIC PANEL Routine 11/21/2023 1:41 PM CDT Medicare annual wellness visit, subsequent from Last 3 Months Results * SCAN-CT INTERPRETATION (2024 12:00 AM TRANSACTIONAL ATTORNEY) Anatomical Region Laterality Modality Other Scanner OTHER * (ABNORMAL) BASIC METABOLIC PANEL (11/21/2023 1:41 PM CDT) SODIUM 142 136 - 145 mmol/L 11/21/2023 11:32 PM CDT [facility] POTASSIUM 4.3 3.5 - 5.1 mmol/L 11/21/2023 11:32 PM CDT [facility] CHLORIDE 107 98 - 107 mmol/L 11/21/2023 11:32 PM CDT [facility] CO2,TOTAL 22 22 - 29 mmol/L 11/21/2023 11:32 PM CDT [facility] ANION GAP 13 5 - 18 11/21/2023 11:32 PM CDT [facility] GLUCOSE 99 70 - 99 mg/dL 11/21/2023 11:32 PM T [facility] CALCIUM 9.8 8.8 - 10.2 mg/dL 11/21/2023 11:32 PM CDT [facility] BUN 21 8 - 23 mg/dL 11/21/2023 11:32 PM T [facility] CREATININE 1.50(H) 0.70 - 1.20 mg/dL 11/21/2023 11:32 PM T [facility] BUN/CREAT RATIO 14 10 - 20 11:32 PM T [facility] eGFR 45(L) >90 mL/min/1.7 3m2 11/21/2023 11:32 PM T [facility] Comment:As of 2021, eG [...] 1:43 PM CDT Marla Medina DO [facility] [address] [place] [address], from Last 3 Months Advance Directives Documents on File Type Date Recorded Patient Balance Wheel Screw Hole Tapper Expl twila POLST 03/25/2023 11:00 AM Healthcare Directive 01/15/2018 10:00 AM 1 * Full Code (Latest Code Status on File) Date Activated Date Inactivated Comments 08/06/2017 5:48 AM 08/06/2017 4:11 PM * Full Code Date Activated Date Inactivated Comments 08/17/2006 5:10 PM 08/19/2006 1:10 PM Care Teams Scientific Linguist Relationship Specialty Start Date End Date [place] [address] PCP - General Family Practice 10/23/21 Joey Ribeiro MD Urology Surgery - Urology 11/28/11 [id number] [place] [address] 05/16/23
--- OUTSIDE RECORDS SUMMARY | 2024-01-31 08:25 | XMS_ITS | Encounter Summary ---
Author Organization [place] Address [facility] [place] [address] Care Team Providers Care Biztalk Administrator Name Role Phone Brandan Griffin MD Primary Care Provider [phone] Encounter Details Date Type Department Care Team (Late st Contact Info) Description 08/18/2017 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 Gender Identity Not on file Sexual Orientation Not on file documented as of this encounter Plan of Treatment Not on file documented as of this encounter Visit Diagnoses Diagnosis Pre-operative laboratory examination- Primary Pre-procedural laboratory examination documented in this encounter Additional Health Concerns Infection Onset Date Last Indicated Resolved Time 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
--- OUTSIDE RECORDS SUMMARY | 2024-01-31 08:25 | XMS_ITS | Clinical Summary ---
Author Organization [place] Address [address] [place] [address]. 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 Gender Identity Not on file Sexual Orientation [...] on file Medical Devices Implanted Type Area Life Manager Device Identifier Shelf Expiration Date Model / Serial / Lot Imp Scr Bone Can Joseluis 6.5x30mm [id number] Implanted:Qty: 1 on 09/08/2017 by Reji Michael MD at [facility] Metallic Hardware/An chor Left: Hip [employer] 12/14/2024 [id number] / / [id number] Imp Scr Bone Can Joseluis 6.5x30mm [id number] Implanted:Qty: 1 on 09/08/2017 by Reji Michael MD at [facility] Metallic Hardware/An chor Left: Hip [employer] 05/15/2027 [id number] / / [id number] Imp Cup Joseluis [place] 64mm [id number] Implanted:Qty: 1 on 09/08/2017 by Reji Michael MD at [facility] Total Joint Component/I nsert Left: Hip [employer] 02/13/2027 [id number] / / [id number] Imp Stem Fem Hip Depuy [place] Tpr Sz 8 Hi Off 1570-11-150 Implanted:Qty: 1 on 09/08/2017 by Reji Michael MD at [facility] Total Joint Component/I nsert Left: Hip [employer] 05/15/2027 1570-11-150 / / [id number] Imp Head Femoral Depuy 36mm +5 1365-52-000 Implanted:Qty: 1 on 09/08/2017 by Reji Michael MD at [facility] Total Joint Component/I nsert Left: Hip [employer] 01/14/2022 [id number] / / [id number] [place] Altrx Acetabular Liner +4 10 Degree 36mm Id / 64mm Od Implanted:Qty: 1 on 09/08/2017 by Reji Michael MD at [facility] Left: Hip Depuy 02/13/2021 1221-36-164 / / [id number] Additional Health Concerns Infection Onset Date Last Indicated MRSA 08/18/2017 08/18/2017 Insurance MEDICARE [facility] MEDICARE SUPPLEMENT Advance Directives For more information, please contact: [phone] Documents on File Type Date Recorded Patient Launchman Expl anation Advance Directives and Living Will [...] Perez Spouse Health Care Agent Care Teams Ceramic Maker Demonstrator Relationship Specialty Start Date End Date Brandan Griffin MD [address] [place] [id number] PCP - General Internal Medicine 07/19/14
--- OUTSIDE RECORDS SUMMARY | 2024-01-31 08:25 | XMS_ITS | Referral Summary ---
Author Organization [place] Address [facility] 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 Gender Identity Not on file Sexual Orientation [...] on file Medical Devices Implanted Type Area Science Liaison Device Identifier Shelf Expiration Date Model / Serial / Lot Imp Scr Bone Can Joseluis 6.5x30mm [id number] Implanted:Qty: 1 on 09/08/2017 by Reji Michael MD at [facility] Metallic Hardware/An chor Left: Hip [employer] 12/14/2024 [id number] / / [id number] Imp Scr Bone Can Joseluis 6.5x30mm [id number] Implanted:Qty: 1 on 09/08/2017 by Reji Michael MD at [facility] Metallic Hardware/An chor Left: Hip [employer] 05/15/2027 [id number] / / [id number] Imp Cup Joseluis [place] 64mm 1217-22-064 Implanted:Qty: 1 on 09/08/2017 by Reji Michael MD at [facility] Total Joint Component/I nsert Left: Hip [employer] 02/13/2027 [id number] / / [id number] Imp Stem Fem Hip Depuy [place] Tpr Sz 8 Hi Off 1570-11-150 Implanted:Qty: 1 on 09/08/2017 by Reji Michael MD at [facility] Total Joint Component/I nsert Left: Hip [employer] 05/15/2027 1570-11-150 / / [id number] Imp Head Femoral Depuy 36mm +5 1365-52-000 Implanted:Qty: 1 on 09/08/2017 by Reji Michael MD at [facility] Total Joint Component/I nsert Left: Hip [employer] 01/14/2022 [id number] / / [id number] [place] Altrx Acetabular Liner +4 10 Degree 36mm Id / 64mm Od Implanted:Qty: 1 on 09/08/2017 by Reji Michael MD at [facility] Left: Hip Depuy 02/13/2021 1221-36-164 / / [id number] Additional Health Concerns Infection Onset Date Last Indicated MRSA 08/18/2017 08/18/2017 Insurance MEDICARE [facility] MEDICARE SUPPLEMENT Advance Directives For more information, please contact: [phone] Documents on File Type Date Recorded Patient Mcat Instructor Expl anation Advance Directives and Living Will [...] Perez Spouse Health Care Agent Care Teams Reliner Relationship Specialty Start Date End Date Brandan Griffin MD [address] [place] [id number] PCP - General Internal Medicine 07/19/14
--- OUTSIDE RECORDS SUMMARY | 2024-01-31 08:25 | XMS_ITS | Encounter Summary ---
Author Organization [facility] Address [address], [place] [address] Care Team Providers Care Financial Operations Clerk Name Role Phone Found, No Pcp MD Primary Care Provider Unavailab le Encounter Details Date Type Department Care Team (Late st Contact Info) Description 08/03/2018 Lab Requisition [facility] [address] [employer] [facility] [place], [place] [id number] Kvng Boyle MD [address] [place] [address] Spinal stenosis; Essential (primary) hypertension Social History [...] - 145 mmol/L 08/04/2018 11:30 AM CDT [facility] Potassium 4.2 3.5 - 5.1 mmol/L 08/04/2018 11:30 AM CDT [facility] Chloride 103 98 - 109 mmol/L 08/04/2018 11:30 AM CDT [facility] CO2 26 20 - 29 mmol/L 08/04/2018 11:30 AM CDT [facility] Anion Gap 9 7 - 16 mmol/L 08/04/2018 11:30 AM CDT [facility] Calcium 10.3 8.4 - 10.4 mg/dL 08/04/2018 11:30 AM CDT [facility] BUN 14 7 - 26 mg/dL 08/04/2018 11:30 AM CDT [facility] Creatinine 1.06 0.73 - 1.18 mg/dL 08/04/2018 11:30 AM CDT [facility] GFR, Estimated >60 >60 mL/min/1.7 3m2 08/04/2018 11:30 AM CDT [facility] GFR, Est If >60 >60 mL/min/1.7 3m2 08/04/2018 11:30 AM CDT [facility] Albumin 3.3(L) 3.5 - 5.0 g/dL 08/04/2018 11:30 AM CDT [facility] Phosphorus 3.3 2.3 - 4.7 mg/dL 08/04/2018 11:30 AM CDT [facility] Glucose 159(H) 70 - 100 mg/dL 08/04/2018 11:30 AM CDT [facility] Comment:The given reference range is for the fasting state. Non-fasting reference range for glucose is 70 - 180 mg/dL. Hours Fasting Unknown 08/04/2018 11:30 AM CDT [facility] Blood Venipuncture / Unknown 08/04/2018 9:09 AM CDT 08/04/2018 11:13 AM CDT Kvng Boyle MD LAB_1 [facility] [address] * (ABNORMAL) Complete Blood Count-No Diff (08/04/2018 9:09 AM CDT) WBC 9.3 3.5 - 10.5 x10(9)/L 08/04/2018 11:21 AM CDT [facility] RBC 4.17(L) 4.32 - 5.72 x10(12)/L 08/04/2018 11:21 AM CDT [facility] Hemoglobin 13.0(L) 13.5 - 17.5 g/dL 08/04/2018 11:21 AM CDT [facility] HCT 41.5 38.8 - 50.0 % 08/04/2018 11:21 AM CDT [facility] MCV 99.5 80.0 - 100.0 fL 08/04/2018 11:21 AM CDT [facility] MCH 31.2 27.6 - 33.3 pg 08/04/2018 11:21 AM CDT [facility] MCHC 31.3(L) 31.5 - 35.2 g/dL 08/04/2018 11:21 AM CDT [facility] RDW 12.6 11.9 - 15.5 % 08/04/2018 11:21 AM CDT [facility] Platelets 312 150 - 450 x10(9)/L 08/04/2018 11:21 AM CDT [facility] Automated NRBC 0 <=0 /100 WBC 08/04/2018 11:21 AM CDT [facility] Blood Venipuncture / Unknown 08/04/2018 9:09 AM CDT 08/04/2018 11:12 AM CDT Kvng Boyle MD LAB_1 [facility] [address] [place] [address], [facility] documented in this encounter Visit Diagnoses Diagnosis Spinal stenosis Spinal stenosis, unspecified region other than cervical Essential (primary) hypertension (HRC) Unspecified essential hypertension documented in this encounter Care Teams Financial Operations Clerk Relationship Specialty Start Date End Date Found, No Pcp, [place] [address] PCP - General 11/30/19 documented as of this encounter
--- OUTSIDE RECORDS SUMMARY | 2024-01-31 08:25 | XMS_ITS | Clinical Summary ---
Author Organization [facility] Address [address] [place] [address] Care Team Providers Care Pharmacist Aide Name Role Phone Found, No Pcp MD [...] for each transition of care or referral. [facility] Allergies No known active allergies Medications Medication [...] Take 1 Tablet by mouth. 02/03/2014 Active Sutherland-3 (AKA FISH OIL) 1000 MG capsule Take [...] age to complete this topic Care Teams Pharmacist Aide Relationship Specialty Start Date End Date Found, No Pcp, [address] [place] [address] PCP - General 11/30/19
--- OUTSIDE RECORDS SUMMARY | 2024-01-31 08:25 | XMS_ITS | Encounter Summary ---
Author Organization [facility] Address [address] [place] [address] Care Team Providers Care Broiler Manager Name Role Phone Found, No Pcp Primary Care Provider Unavailab le Encounter Details Date Type Department Care Team (Late st Contact Info) Description 10/04/2020 Lab Requisition [facility] [address] [place], [place] [id number] Salinas Clifford MD [address] [facility] [address] [place], [place] [phone] Encounter for screening for respiratory tuberculosis Social [...] MITOGEN >10.000 IU/mL 10/09/2020 11:14 AM CDT [facility] Blood Venipuncture / Unknown 10/05/2020 2:33 PM CDT 10/05/2020 9:17 PM CDT Salinas Clifford MD LAB_1 Performing Organization Address [facility] Co de Phone Number [facility] [address] [place] [address] * TB QuantiFERON Gold Plus TB2 (10/05/2020 2:33 PM CDT) TB2 0.000 IU/mL 10/09/2020 11:14 AM CDT [facility] Blood Venipuncture / Unknown 10/05/2020 2:33 PM CDT 10/05/2020 9:17 PM CDT Salinas Clifford MD LAB_1 Performing Organization Address [facility] Phone Number [facility] [address] [place] [address] * TB QuantiFERON Gold Plus TB1 (10/05/2020 2:33 PM CDT) TB1 0.189 IU/mL 10/09/2020 11:14 AM CDT [facility] Blood Venipuncture / Unknown 10/05/2020 2:33 PM CDT 10/05/2020 9:17 PM CDT Salinas Clifford MD LAB_1 Performing Organization Address [facility] Co de Phone Number [facility] [address] [place] [address] * TB QuantiFERON Gold Plus NIL (10/05/2020 2:33 PM CDT) [facility] TB QuantiFERON Gold Plus Negative, M. tuberculosis Infection NOT likely Negative, M. tuberculosis Infection NOT likely 10/09/2020 11:22 AM CDT [facility] NIL 0.000 IU/mL 10/09/2020 11:22 AM CDT [facility] TB1-NIL 0.19 IU/mL 10/09/2020 11:22 AM CDT [facility] TB2-NIL 0.00 IU/mL 10/09/2020 11:22 AM CDT [facility] Mitogen-NIL 10.00 IU/mL 10/09/2020 11:22 AM CDT [facility] Blood Venipuncture / Unknown 10/05/2020 2:33 PM CDT 10/05/2020 9:17 PM CDT Narrative [facility] - 10/09/2020 11:22 AM CDT Nil [...] production by lymphocytes. Salinas Clifford MD LAB_1 [facility] [address] [place] [address], [facility] documented in this encounter Visit Diagnoses Diagnosis Encounter for screening for respiratory tuberculosis Screening examination for pulmonary tuberculosis documented in this encounter Care Teams Broiler Manager Relationship Specialty Start Date End Date Found, No Pcp, [address] [place] [address] PCP - General 11/30/19 documented as of this encounter
--- OUTSIDE RECORDS SUMMARY | 2024-01-31 08:25 | XMS_ITS | Encounter Summary ---
Author Organization [facility] Address [address] [facility] [address] Care Team Providers Care Project Structural Engineer Name Role Phone Brandan Griffin MD Primary Care Provider [phone] Encounter Details Date Type Department Care Team (Late st Contact Info) Description 08/15/2017 Orders Only [facility] [address] [facility] [address] Reji Michael MD [facility] [address] [place] [address] Pre-operative laboratory examination (Primary Dx) Social History Tobacco Use Types Packs/Day Years Used Date Smoking Tobacco: Never Alcohol Use Standard Drinks/Week Comments Yes 0 (1 standard drink = 0.6 oz pur e alcohol) Sex and Gender Information Value Date Recorded Sex Assigned at Not on file Legal Sex Male 3:17 AM [employer]ATING [employer] Gender Identity Not on file Sexual Orientation Not on file documented as of this encounter Plan of Treatment Not on file documented as of this encounter Results * (ABNORMAL) Methicillin Resist/Sens S. aureus PCR (08/18/2017 12:00 PM CDT) Specimen Description Opal 08/18/2017 4:04 PM CDT [facility] Methicillin Resist/Sens S. 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 A positive test does not necessarily indicate the presence of viable organisms. It is,however, presumptive for the presence of MRSA or SA. FDA approved assay performed using [employer] GeneXpert(R) real-time PCR. Nasal structure (body structure) 08/18/2017 12:00 PM CDT 08/18/2017 4:05 PM CDT us Reji Michael MD LAB - MICRO GENERAL ORDERABLE S Final Result [facility] [address] [place], [place] [phone] [place] [address] Soni Joel [place], [place] [phone] [place] [address] documented in this encounter Visit Diagnoses Diagnosis Pre-operative laboratory examination- Primary Pre-procedural laboratory examination documented in this encounter Additional Health Concerns Infection Onset Date Last Indicated Resolved Time MRSA 08/18/2017 08/18/2017 documented as of this encounter Care Teams Project Structural Engineer Relationship Specialty Start Date End Date Brandan Griffin MD [address] [place] [address] PCP - General Internal Medicine 07/19/14 documented as of this encounter
[2024-01-31 08:34] LABS: Slide Review Reflex No
[2024-01-31 08:37] LABS: Albumin* 4.3 g/dL (3.3-5.0); Chloride* 109 mmol/L (96-114)
[2024-01-31 08:38] LABS: Potassium* 4.4 mmol/L (3.6-5.1); Sodium* 142 mmol/L (135-149)
[2024-01-31 08:40] LABS: Anion Gap 10 mEq/L (7-15); Aspartate Amino Transferase* 24 U/L (12-35); Bilirubin Total* 0.6 mg/dL (0.1-1.5); Carbon Dioxide* 23 mmol/L (20-32); Creatinine* 1.5 mg/dL (0.5-1.5); Estimated Glomerular Filt Rate 45 ml/min; Total Protein* 6.8 g/dL (6.0-8.3)
[2024-01-31 08:41] LABS: Alanine Aminotransferase* 13 U/L (4-50); Alkaline Phosphatase* 39 U/L (40-150); Blood Urea Nitrogen* 22 mg/dL (7-30); Calcium* 9.7 mg/dL (8.4-10.6); Glucose* 95 mg/dL (60-115)
--- NOTE | 2024-01-31 08:42 | ED.NURSE ---
Patient observed to have sleep apnea. Pulse ox sats drop to 80 then rebound after a few seconds. Patient 's was concerned about the alarm. Reviewed sleep apnea, this is not new to patient, and O2 applied for comfort.
[2024-01-31 08:52] LABS: Troponin I* 0.02 ng/mL (0.01-0.04)
[2024-01-31 09:28] LABS: Appearance Urine Clear (Clear); Bilirubin Urine Negative (Negative); Blood Urine 1+ (Negative); Color Urine Yellow (Yellow); Glucose Urine Negative (Negative); Ketones Urine Negative (Negative); Leukocyte Esterase Urine Trace (Negative); Nitrite Urine Negative (Negative); Protein Urine 1+ (Negative); Urobilinogen Urine 0.2 (0.2-1.0); pH Urine 5.5 (5.0-8.5)
[2024-01-31 09:45] LABS: Bacteria Urine Few; Mucus Urine Few; Squamous Epithelial Cell Urine Few (None-Few)
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
--- NOTE | 2024-01-31 10:48 | CRLHL7_ITS ---
For Patients: As a result of the Cures Act, medical imaging exams and procedure reports are released immediately into your electronic medical record. You may view this report before your referring provider. If you have questions, please contact your health care provider. INDICATION: Fall, shoulder injury TECHNIQUE: Shoulder radiograph 2 views left COMPARISON: None FINDINGS: Bone: No acute fractures or aggressive bone lesions are identified. Moderate diffuse osteopenia is noted. Joint: The glenohumeral joint is unremarkable. 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 Soft tissue: Unremarkable. The visualized hemithorax is unremarkable in appearance. No radiopaque foreign bodies are seen. IMPRESSION: 1. No acute osseous injuries or abnormalities are noted. Dictated by: Mal Byrd MD @ 01/31/2024 12:01:55 (Electronically Signed)
--- NOTE | 2024-01-31 10:48 | CRLHL7_ITS ---
For Patients: As a result of the Cures Act, medical imaging exams and procedure reports are released immediately into your electronic medical record. You may view this report before your referring provider. If you have questions, please contact your health care provider. INDICATION: Fall, shoulder injury TECHNIQUE: Shoulder radiograph 2 views right COMPARISON: None FINDINGS: Bone: No acute fractures or aggressive bone lesions are identified. Moderate diffuse osteopenia is noted. Joint: The glenohumeral joint is unremarkable. 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 Soft tissue: Unremarkable. The visualized hemithorax is unremarkable in appearance. No radiopaque foreign bodies are seen. IMPRESSION: 1. No acute osseous injuries or abnormalities are noted. Dictated by: Mal Byrd MD @ 01/31/2024 12:02:15 (Electronically Signed)
[2024-01-31] MEDS: ACETAMINOPHEN 500 MG TABLET 1000 MG PO ×2 (13:57→21:03)
[2024-01-31] MEDS: SULFA/TRIMETHOPRIM 800/160 1 TAB PO ×2 (13:57→21:04)
--- NOTE | 2024-01-31 19:42 | PC.NURSE ---
End of shift-- Pt admitted to Med-Surg via cart this morning. Pt drowsy and has baseline dementia until this evening. Speech minimal today and nonsensical. Pt is bradycardic with HR 29-40 today and hypertensive, VS otherwise WNL. SPO2 was >94% on arrival, but was noted to drop as low as 79-80% on RA while sleeping and pt had observed periods of sleep apnea. O2 was applied at 2L and pt has maintained sats >90% on 2L since. Telemetry shows sinus bradycardia and MD is aware. LS CTA. He was repositioned only this shift r/t drowsiness. He ate about 50% of his dinner with minimal assistance. He was incontinent of urine today and at times becomes angry with cares gripping this nurse's arm tightly in frustration.
[2024-01-31] MEDS: MELATONIN 3 MG TABLET PO (21:03)
[2024-01-31] MEDS: DONEPEZIL 10 MG TABLET PO (21:03)
[2024-01-31] MEDS: MEMANTINE HCL 10 MG TABLET PO (21:04)
[2024-02-01] VITALS (8 sets, daily range): BP systolic 135; BP diastolic 70; PULSE 42–48; RESP 14–16; TEMP 36.4; O2SAT 93
--- NOTE | 2024-02-01 06:41 | PC.NURSE ---
Pt alert and oriented to self only. Pt took off tele and pulse oximeter and pulled out IV around 1949 updated MELANY Martinez,?orders given to?d/c tele, pulse oximeter and IV. Pt is voiding, tolerating pills crushed in applesauce, up A1/SBA with gait belt as pt allows, pt will occasionally swat or yell at staff when agitated. Pt slept throughout most of night. ?
[2024-02-01 06:51] LABS: Basophils Absolute Auto 0.02 K/uL (0.00-0.30); Basophils Percent Auto 0.4 % (0.0-3.0); Eosinophils Absolute Auto 0.26 K/uL (0.00-0.50); Eosinophils Percent Auto 5.3 % (0.0-7.0); Hematocrit 42.4 % (37.0-53.0); Hemoglobin* 13.7 gm/dL (13.5-17.5); Immature Granulocytes Abs Auto 0.02 K/uL (0.00-0.30); Immature Granulocytes Pct Auto 0.4 %; Lymphocytes Absolute Auto 1.84 K/uL (0.90-2.90); Lymphocytes Percent Auto 37.6 % (20-44); Mean Corpuscular HGB Conc 32 gm/dL (32-36); Mean Corpuscular Hemoglobin 32 pg (26-34); Mean Corpuscular Volume 99 fL (80-100); Monocytes Percent Auto 12.1 % (0.0-11.0); Neutrophils Absolute Auto 2.16 K/uL (1.7-7.0); Neutrophils Percent Auto 44.2 % (42.0-72.0); Platelet Count* 191 K/uL (140-440); RDW Coefficient of Variation % 12.7 % (11.5-15.5); White Blood Count* 4.89 K/uL (4.50-11.00)
[2024-02-01 06:53] LABS: Slide Review Reflex No
[2024-02-01 07:00] LABS: Chloride* 111 mmol/L (96-114); Potassium* 3.9 mmol/L (3.6-5.1); Sodium* 140 mmol/L (135-149)
[2024-02-01 07:03] LABS: Anion Gap 11 mEq/L (7-15); Carbon Dioxide* 18 mmol/L (20-32); Creatinine* 1.5 mg/dL (0.5-1.5); Estimated Glomerular Filt Rate 45 ml/min
[2024-02-01 07:04] LABS: Blood Urea Nitrogen* 21 mg/dL (7-30); Calcium* 9.8 mg/dL (8.4-10.6); Glucose* 111 mg/dL (60-115)
--- NOTE | 2024-02-01 07:39 | PM.IMPN1 ---
Progress Note: A&P Assessment and plan (1) Dementia: Problem details: - advanced Alzheimer disease on memantine and donepezil. - need for placement in a long term care pharmacist memory unit - primary caregiver. We discussed moving towards comfort care as the next step for him, and she was open for that discussion. Status: Chronic (2) Severe sinus bradycardia: Problem details: -Discussed his severe bradycardia w his and she understands that it might lead to a cardiac arrest but she thinks with his advanced dementia, comorbidities and according to his wishes from prior discussions years ago, they does not want to have any intervention right now. Status: Acute (3) Need for comfort care: Problem details: - primary caregiver. We discussed moving towards comfort care as the next step for him, and she was open for that discussion. - still wants to treat infections as UTI. - administrator social welfare consult. Status: Acute (4) UTI (urinary tract infection): Problem details: -history of recurrent UTIs -UA +ve., Urine Cx pending, will start empirical antibiotics. Status: Acute (5) SANDHYA (acute kidney injury): Problem details: -creatinine of 1.6 on 01/28, improving. -IVF and monitor. Status: Acute (6) Recurrent falls: Problem details: - stated that his full this time was directly on his shoulder (RT), ordered shoulders x-ray Status: Acute (7) Hypertension: Status: Chronic (8) Depression: Problem details: On venlafaxine Status: Acute (9) BPH (benign prostatic hyperplasia): Status: Chronic (10) Pancreatic mass: Problem details: - incidental finding on admission C/A/P: questionable pancreatic tail mass versus intrapancreatic splenule measuring 2.3 centimeters - outpatient f/u with multiphase pancreatic protocol CT if within goals of care Status: Acute Plan As above Time Spent With Patient Total time spent: Today I spent 50 minutes seeing the patient, reviewing Expanse and EPIC notes/diagnostics, discussing the care plan with our care time that includes social work, PT/OT, pharmacy, RT, correction and documenting my impressions and plan in the medical record. Subjective Date Seen: 02/01/24 Interval history: Patient was seen and examined at bedside today. No acute events overnight. Patient is not oriented, advanced Alzheimer's dementia. Tolerating food. Exam Narrative: Exam Narrative: GENERAL: Elderly, no acute distress. HEAD AND NECK: Atraumatic, normocephalic CARDIOVASCULAR: RRR. Normal S1, S2. No murmurs. RESPIRATORY: Clear to auscultation B/L. Good air entry B/L. No wheezes or rhonchi. GASTROINTESTINAL: Not distended, not tender to palpation. NEUROLOGY: Awake alert,, confused, not oriented Const: Vital Signs, click to edit/add: Vital Signs - 24 hr 01/31/24 07:48 01/31/24 07:49 01/31/24 07:56 Temperature 97.6 F Pulse Rate 35 L 35 L Pulse Rate [Pulse Oximeter] 35 L Respiratory Rate 16 Blood Pressure 179/81 H Blood Pressure [Ri ght Arm] Blood Pressure [Ri ght Upper Arm] 179/81 H Pulse Oximetry 96 95 98 Oxygen Delivery Me thod Room Air Oxygen Flow Rate 01/31/24 08:00 01/31/24 08:13 01/31/24 08:15 Temperature Pulse Rate 58 L 34 L 33 L Pulse Rate [Pulse Oximeter] Respiratory Rate 16 Blood Pressure 197/88 H Blood Pressure [Ri ght Arm] Blood Pressure [Ri ght Upper Arm] Pulse Oximetry 94 95 93 Oxygen Delivery Me thod Oxygen Flow Rate 01/31/24 08:22 01/31/24 08:30 01/31/24 08:42 Temperature Pulse Rate 35 L 35 L Pulse Rate [Pulse Oximeter] Respiratory Rate Blood Pressure 166/94 H Blood Pressure [Ri ght Arm] Blood Pressure [Ri ght Upper Arm] Pulse Oximetry 93 91 93 Oxygen Delivery Me thod Nasal Cannula Oxygen Flow Rate 2 01/31/24 08:43 01/31/24 08:45 01/31/24 09:02 Temperature Pulse Rate 34 L 48 L Pulse Rate [Pulse Oximeter] Respiratory Rate Blood Pressure 171/79 H 182/71 H Blood Pressure [Ri ght Arm] Blood Pressure [Ri ght Upper Arm] Pulse Oximetry 91 92 Oxygen Delivery Me thod Oxygen Flow Rate 01/31/24 09:18 01/31/24 09:22 01/31/24 09:58 Temperature Pulse Rate 34 L 32 L Pulse Rate [Pulse Oximeter] 33 L Respiratory Rate 16 Blood Pressure 158/77 H Blood Pressure [Ri ght Arm] 186/76 H Blood Pressure [Ri ght Upper Arm] Pulse Oximetry 95 98 96 Oxygen Delivery Me thod Room Air Oxygen Flow Rate 01/31/24 10:29 01/31/24 14:00 01/31/24 15:00 Temperature 96.5 F L Pulse Rate 33 L Pulse Rate [Pulse Oximeter] 34 L Respiratory Rate 16 18 Blood Pressure Blood Pressure [Ri ght Arm] 144/81 H Blood Pressure [Ri ght Upper Arm] Pulse Oximetry 96 98 Oxygen Delivery Me thod Room Air Nasal Cannula Oxygen Flow Rate 2 2 01/31/24 15:00 01/31/24 17:10 01/31/24 21:45 Temperature Pulse Rate 40 L Pulse Rate [Pulse Oximeter] 34 L 45 L Respiratory Rate 18 20 Blood Pressure Blood Pressure [Ri ght Arm] Blood Pressure [Ri ght Upper Arm] Pulse Oximetry 97 Oxygen Delivery Me thod Oxygen Flow Rate 01/31/24 23:00 02/01/24 00:12 02/01/24 00:30 Temperature Pulse Rate Pulse Rate [Pulse Oximeter] Respiratory Rate 14 14 14 Blood Pressure Blood Pressure [Ri ght Arm] Blood Pressure [Ri ght Upper Arm] Pulse Oximetry Oxygen Delivery Me thod Oxygen Flow Rate 02/01/24 03:00 02/01/24 06:00 Temperature Pulse Rate Pulse Rate [Pulse Oximeter] Respiratory Rate 16 16 Blood Pressure Blood Pressure [Ri ght Arm] Blood Pressure [Ri ght Upper Arm] Pulse Oximetry Oxygen Delivery Me thod Oxygen Flow Rate Labs Labs: Laboratory Results - last 24 hr 01/31/24 01/31/24 02/01/24 08:12 09:15 06:20 WBC 5.04 4.89 RBC 4.17 L 4.30 Hgb 13.3 L 13.7 Hct 41.4 42.4 MCV 99 99 MCH 32 32 MCHC 32 32 RDW Coeff of Moira 12.8 12.7 Plt Count 174 191 Neut % (Auto) 52.1 44.2 Lymph % (Auto) 26.4 37.6 [place] % (Auto) 15.9 H 12.1 H Eos % (Auto) 4.8 5.3 Baso % (Auto) 0.4 0.4 Neut # (Auto) 2.63 2.16 Lymph # (Auto) 1.33 1.84 [place] # (Auto) 0.80 0.60 Eos # (Auto) 0.24 0.26 Baso # (Auto) 0.02 0.02 Abs Immat Gran (auto) 0.02 0.02 Imm/Tot Granulo (auto) 0.4 0.4 Sodium 142 140 Potassium 4.4 3.9 Chloride 109 111 Carbon Dioxide 23 18 L Anion Gap 10 11 BUN 22 21 Creatinine 1.5 1.5 Estimated Creat Clear 36.50 36.50 Estimated GFR 45 45 Glucose 95 111 Calcium 9.7 9.8 Total Bilirubin 0.6 AST 24 ALT 13 Alkaline Phosphatase 39 L Troponin I 0.02 Total Protein 6.8 Albumin 4.3 Urine Color Yellow Urine Appearance Clear Urine pH 5.5 Ur Specific [place] 1.020 Urine Protein 1+ A Urine Glucose (UA) Negative Urine Ketones Negative Urine Blood 1+ A Urine Nitrite Negative Urine Bilirubin Negative Urine Urobilinogen 0.2 Ur Leukocyte Esterase Trace A Urine RBC 5-10 A Urine WBC 10-25 A Ur Squamous Epith Cells Few Urine Bacteria Few A Urine Mucus Few A
[2024-02-01] MEDS: VENLAFAXINE HCL ER 37.5 MG CAPSULE PO (08:59)
[2024-02-01] MEDS: ACETAMINOPHEN 500 MG TABLET 1000 MG PO ×3 (08:59→20:26)
[2024-02-01] MEDS: CETIRIZINE HCL 10 MG TABLET PO (08:59)
[2024-02-01] MEDS: SULFA/TRIMETHOPRIM 800/160 1 TAB PO ×2 (08:59→20:26)
[2024-02-01] MEDS: MEMANTINE HCL 10 MG TABLET PO ×2 (08:59→20:26)
[2024-02-01] MEDS: SODIUM CHLORIDE 0.9 % (FLUSH) 10 ML SYRINGE 5 ML IVF (09:00)
[2024-02-01] MEDS: TAMSULOSIN HCL 0.4 MG CAPSULE PO (13:56)
[2024-02-01] MEDS: 0.9 % SODIUM CHLORIDE 500 ML 500 ML IV (14:09)
--- NOTE | 2024-02-01 18:25 | PC.NURSE ---
Pt alert to self. Pt had no complaints of pain. Pt up with assist of two to bathroom. Pt has been pleasant and cooperative first part of shift. Midafternoon Pt became combative with transfer and an assist of three with the denise dunn was needed; updated. Pt?s at bedside. Pt walked in hallways with assist of 1-2 with walker and gait belt mid evening.?
[2024-02-01] MEDS: MELATONIN 3 MG TABLET PO (20:26)
[2024-02-01] MEDS: DONEPEZIL 10 MG TABLET PO (20:26)
[2024-02-02 06:00] VITALS: RESP 16
--- NOTE | 2024-02-02 06:37 | PC.NURSE ---
Pt alert and oriented to self only. Pt got up around 0430 and walked in [place]. Pt is up A1 with walker and gait belt.?Pt slept throughout most of night. Night uneventful.??
[2024-02-02 06:42] LABS: Hematocrit 39.2 % (37.0-53.0); Hemoglobin* 12.6 gm/dL (13.5-17.5); Mean Corpuscular HGB Conc 32 gm/dL (32-36); Mean Corpuscular Hemoglobin 32 pg (26-34); Mean Corpuscular Volume 99 fL (80-100); Platelet Count* 171 K/uL (140-440); Red Blood Count 3.98 m/uL (4.30-5.90); White Blood Count* 4.56 K/uL (4.50-11.00)
[2024-02-02 06:45] LABS: Slide Review Reflex No
[2024-02-02 06:48] LABS: Chloride* 110 mmol/L (96-114); Sodium* 140 mmol/L (135-149)
[2024-02-02 06:49] LABS: Potassium* 3.8 mmol/L (3.6-5.1)
[2024-02-02 06:51] LABS: Anion Gap 10 mEq/L (7-15); Blood Urea Nitrogen* 23 mg/dL (7-30); Carbon Dioxide* 20 mmol/L (20-32); Creatinine* 1.6 mg/dL (0.5-1.5); Est. Creatinine Clearance* 34.22; Estimated Glomerular Filt Rate 42 ml/min
[2024-02-02 06:52] LABS: Calcium* 9.5 mg/dL (8.4-10.6); Glucose* 115 mg/dL (60-115)
[2024-02-02 09:30] VITALS: BP 141/87; PULSE 45; RESP 16; TEMP 37.3; O2SAT 95
[2024-02-02] MEDS: MEMANTINE HCL 10 MG TABLET PO ×2 (09:33→21:18)
[2024-02-02] MEDS: CETIRIZINE HCL 10 MG TABLET PO (09:33)
[2024-02-02] MEDS: SULFA/TRIMETHOPRIM 800/160 1 TAB PO (09:33)
[2024-02-02] MEDS: ACETAMINOPHEN 500 MG TABLET 1000 MG PO ×3 (09:34→21:18)
[2024-02-02] MEDS: SODIUM CHLORIDE 0.9 % (FLUSH) 10 ML SYRINGE 5 ML IVF (09:35)
--- NOTE | 2024-02-02 09:42 | NUTR.NU ---
RDN with nutrition screen related to positive MST score for unsure weight loss and poor appetite recently, and positive skin risk. Patient admitted for dementia and needing placement. Past medical history includes GERD, dementia, diverticulitis, and spinal stenosis. Current weight 192 lb 6oz; height 5ft 10in; BMI 27.6 kg/m2. According to weight history, patient's weight has been stable recently. Current diet is Regular with meal intakes 50%+ since admit which is adequate. Per MD's recent note, patient's is considering comfort cares at this time. No nutrition interventions at this time due to stable weight and adequate oral intakes. RDN will continue to monitor and follow-up prn.
[2024-02-02] MEDS: VENLAFAXINE HCL ER 37.5 MG CAPSULE PO (09:53)
[2024-02-02] MEDS: TAMSULOSIN HCL 0.4 MG CAPSULE PO (13:28)
--- NOTE | 2024-02-02 13:34 | PC.SOCIAL ---
Addendum entered and electronically signed by CECI Huerta 02/02/24 16:48: supervisor shed workers has determined there are no short term stay beds available at [facility]. is requesting placement in [place], [place], [place] or [place]. supervisor shed workers contacted those facilities. [place], [place] and [place] do not have appropriate beds available. Awaiting call back from [place] facility. Nurse from [facility], Lady, came to the hospital at family request to evaluate pt for admit to the [facility] for short term placement prior to admission to [facility] on 02/09/24. Met briefly with Lady after assessment who stated they will accept pt to the enhanced assisted living tomorrow and she will call in AM with expected van arrival time for pick pulling machine tender. supervisor shed workers to follow up as needed. Original Note: Discharge planning: Met with and two daughters regarding d/c plan. Pt and live at [facility], [place]. states she can no longer care for him at home and is requesting placement in memory care. Dtrs are in agreement with this plan. has toured all the options she is interested in but has not yet made a decision on placement preference. requested social services aide check bed availability at [facility] and [facility] on the [facility] and [facility] on the [facility]. does not want pt to be placed outside of [place]. supervisor shed workers contacted [facility] and [facility] regarding bed availability. Lady at the [facility] states they have a bed opening at [facility] on Friday and can evaluate pt for that bed. is agreeable to this and requested information be sent for evaluation. supervisor shed workers secure emailed information for evaluation for [facility]. There is not a temporary placement memory care option on the [facility]. Awaiting call back from [facility] regarding options for placement on their campus. Had lengthy multiple conversations with to answer questions and discuss options. states she has some money to pay privately for pt's care at discharge and then will be applying for Medical Assistance for fdc care when needed. supervisor shed workers to continue to work with and family regarding discharge plan.
--- NOTE | 2024-02-02 14:11 | PM.IMPN1 ---
Progress Note: A&P Assessment and plan (1) Dementia: Problem details: - advanced Alzheimer disease on memantine and donepezil. - need for placement in a ad terminal makeup operator memory unit - [place] on Thursday 02/08. Need for SNF in meantime - primary caregiver. We discussed moving towards comfort care as the next step for him, and she was open for that discussion. Has not committed to this though Status: Chronic (2) Severe sinus bradycardia: Problem details: -Discussed his severe bradycardia w his and she understands that it might lead to a cardiac arrest but she thinks with his advanced dementia, comorbidities and according to his wishes from prior discussions years ago, they does not want to have any intervention right now. -patient did not tolerate telemetry over the weekend plan at off. HR noted 20-40s. Family aware, understand potential course as above Status: Acute (3) Need for comfort care: Problem details: - primary caregiver. We discussed moving towards comfort care as the next step for him, and she was open for that discussion - has not yet agreed to comfort cares or hospice evaluation - still wants to treat infections as UTI - informed of urine culture results being negative, antibiotic discontinued - long term care social worker consult for discharge planning/placement needs Status: Acute (4) UTI (urinary tract infection): Problem details: -history of recurrent UTIs -UA +ve., Urine Cx pending, will start empirical antibiotics. -urine culture <50,000 COL/ML OF ALPHA HEME STREP, NOT STREP PNEUMONIA. NO FURTHER WORKUP. Antibiotics discontinue Status: Ruled-out (5) SANDHYA (acute kidney injury): Problem details: -creatinine of 1.6 on 01/28, improving. Stable -IVF - patient ripped out IV - no need to replace Status: Acute (6) Recurrent falls: Problem details: - stated that his full this time was directly on his shoulder (RT), ordered shoulders x-ray - negative for acute findings -OT/PT consulted Status: Acute (7) Hypertension: Problem details: -not currently on medications Status: Chronic (8) Depression: Problem details: On venlafaxine Status: Acute (9) BPH (benign prostatic hyperplasia): Problem details: -on tamsulosin Status: Chronic (10) Pancreatic mass: Problem details: - incidental finding on admission C/A/P: questionable pancreatic tail mass versus intrapancreatic splenule measuring 2.3 centimeters - outpatient f/u with multiphase pancreatic protocol CT if within goals of care -discussed with family further outpatient workup with oncology if they truly believe this would be beneficial verses pursuing comfort/hospice cares Status: Acute Plan Awaiting short-term placement, long term care social worker working on this. Plan for long-term care/memory care at [place] 02/08 Time Spent With Patient Total time spent: Total time spent caring for the patient today was 60 minutes. This includes time spent for the visit reviewing the chart, time spent during the visit, time spent after the visit and documentation and planning in coordination of care. Subjective Date Seen: 02/02/24 Interval history: Patient is seen with and daughters at bedside. No events reported overnight. Remains afebrile. Urine culture is negative so antibiotics have been stopped. security services specialist working with family to find placement. Daughter asking about pancreatic findings on CT which would require further outpatient workup with oncology. Discussed vacillating heart rate which would require outpatient workup with Cardiology, consideration for pacemaker. I believe the family is considering hospice though have not yet committed to this. He has been continued on home medications, we will now stop the antibiotic as the urine cultures negative. Current plan is to find short-term placement locally followed by long-term care/memory care at [place] on Friday. Exam Narrative: Exam Narrative: PHYSICAL EXAM General: Sitting up in a chair, dozing, appears calm and comfortable Cardiovascular: Bradycardic Pulmonary: No dyspnea on room air Neurological: Alert, dozing easily Skin: Warm, dry. Const: Vital Signs, click to edit/add: Vital Signs - 24 hr 02/01/24 15:30 02/01/24 22:52 02/01/24 23:30 Temperature Pulse Rate [Pulse Oximeter] 48 L 42 L Respiratory Rate 14 Blood Pressure [Ri ght Arm] Pulse Oximetry Oxygen Delivery Me thod 02/02/24 06:00 02/02/24 09:30 02/02/24 09:30 Temperature 99.2 F Pulse Rate [Pulse Oximeter] 45 L 45 L Respiratory Rate 16 16 16 Blood Pressure [Ri ght Arm] 141/87 H Pulse Oximetry 95 Oxygen Delivery Me thod Room Air Labs Labs: Laboratory Results - last 24 hr 02/02/24 06:04 WBC 4.56 RBC 3.98 L Hgb 12.6 L Hct 39.2 MCV 99 MCH 32 MCHC 32 Plt Count 171 Sodium 140 Potassium 3.8 Chloride 110 Carbon Dioxide 20 Anion Gap 10 BUN 23 Creatinine 1.6 H Estimated Creat Clear 34.22 Estimated GFR 42 Glucose 115 Calcium 9.5
[2024-02-02 15:00] VITALS: PULSE 45; RESP 16
--- NOTE | 2024-02-02 19:38 | PC.NURSE ---
Pt vitally stable, alert though can be drowsy at times and oriented to self. Pt has baseline dementia, is unable to use call light, bed alarms in place. Pt is a stand by assist with feeding, though tolerates well. Pt removed IV, consulted Dr. Jarvis whom stated no need to replace IV. Pt at bedside and is able to assist with behaviors.
[2024-02-02] MEDS: MELATONIN 3 MG TABLET PO (21:18)
[2024-02-02] MEDS: DONEPEZIL 10 MG TABLET PO (21:19)
[2024-02-02 22:00] VITALS: BP 127/92; PULSE 61; RESP 20; TEMP 36.9; O2SAT 95
--- NOTE | 2024-02-03 06:21 | PC.NURSE ---
19-7 care hours: The patient is cooperative this shift and slept intermittently throughout the night. Incontinent of urine 2x. Pills were given crushed in pudding. Ax 1-2 w/ RW PRN with cues due to dementia. Unable to verbalize full sentences, although does verbalize one word responses at certain times. Alarms in place. Lorna DUENAS BSN
[2024-02-03 07:00] VITALS: PULSE 61; RESP 20
--- NOTE | 2024-02-03 09:36 | P.DS_ITS ---
DS: Providers Provider Date Seen: 02/03/24 Date of admission: 02/01/24 16:09 Primary care physician: RIMMA KINCAID DO Admitting Clinician: Rupinder Hollingsworth MD Attending Physician on discharge: Michelle Henson [facility], PA-C [facility] Date of Discharge: 02/03/24 DS: Diagnosis Discharge Diagnosis (1) Dementia: Status: Chronic Problem details: - advanced Alzheimer disease on memantine and donepezil. - need for placement in a senior care memory unit - [place] on Thursday 02/08. Need for SNF in meantime - primary caregiver. We discussed moving towards comfort care as the next step for him, and she was open for that discussion. Has not committed to this though Advancing dementia, short-term placement until availability at memory care unit. Have encouraged family to consider goals of care including hospice evaluation. (2) Severe sinus bradycardia: Status: Acute Problem details: -Discussed his severe bradycardia w his and she understands that it might lead to a cardiac arrest but she thinks with his advanced dementia, comorbidities and according to his wishes from prior discussions years ago, they does not want to have any intervention right now. -patient did not tolerate telemetry over the weekend plan at off. HR noted 20- 40s. Family aware, understand potential course as above As discussed with and daughter, no further outpatient workup desired. (3) Need for comfort care: Status: Acute Problem details: - primary caregiver. We discussed moving towards comfort care as the next step for him, and she was open for that discussion - has not yet agreed to comfort cares or hospice evaluation - still wants to treat infections as UTI - informed of urine culture results being negative, antibiotic discontinued - web content & social media manager consult for discharge planning/placement needs (4) UTI (urinary tract infection): Status: Ruled-out Problem details: -history of recurrent UTIs -UA +ve., Urine Cx pending, will start empirical antibiotics. -urine culture <50,000 COL/ML OF ALPHA HEME STREP, NOT STREP PNEUMONIA. NO FURTHER WORKUP. Antibiotics discontinue Ruled out. Oral antibiotics discontinued. (5) SANDHYA (acute kidney injury): Status: Acute Problem details: -creatinine of 1.6 on 01/28, Stable -IVF - patient ripped out IV - no need to replace Creatinine 1.6 prior to discharge, baseline 1.3-1.5. Attempted IV fluids howev er patient removed his own IV. Discussed with family, will forego replacing IV for further fluids. (6) Recurrent falls: Status: Acute Problem details: - stated that his full this time was directly on his shoulder (RT), ordered shoulders x-ray - negative for acute findings -OT/PT consulted Discharged to SNF, awaiting memory care placement, continue therapies. (7) Hypertension: Status: Chronic Problem details: -not currently on medications (8) Depression: Status: Acute Problem details: On venlafaxine (9) BPH (benign prostatic hyperplasia): Status: Chronic Problem details: -on tamsulosin (10) Pancreatic mass: Status: Acute Problem details: - incidental finding on admission C/A/P: questionable pancreatic tail mass versus intrapancreatic splenule measuring 2.3 centimeters - outpatient f/u with multiphase pancreatic protocol CT if within goals of care -discussed with family further outpatient workup with oncology if they truly believe this would be beneficial verses pursuing comfort/hospice cares Discussed with family further outpatient workup with oncology, further imaging and workup. Encouraged to consider goals of care, including hospice evaluation, and if this would be in line with those. DS: Summary Hospital Course Hospital Course: [age] year old male was admitted to the medical floor following recurrent falls and advancing dementia for need of placement outside the home. Course of care and details as noted above. Remainder of chronic medical comorbidities were monitored and managed with home medications. Status at Discharge Functional status at discharge: uses cane/walker Overall status at discharge: patient is not back to baseline Time Spent with Patient Time attestation: Total time spent providing and/or coordinating discharge services: Time spent: Greater than 30 minutes Exam Narrative: Exam Narrative: PHYSICAL EXAM General: Pleasant, NAD Cardiovascular: RRR Pulmonary: No dyspnea Neurological: Alert, remains confused Skin: Warm, dry. Const: Vital Signs, click to edit/add: Vital Signs - 24 hr 02/02/24 15:00 02/02/24 22:00 02/03/24 07:00 Temperature 98.4 F Pulse Rate [Pulse Oximeter] 45 L 61 61 Respiratory Rate 16 20 20 Blood Pressure [Le ft Arm] 127/92 H Pulse Oximetry 95 Oxygen Delivery Me thod Room Air DS: Data Imaging Bilateral shoulders plain film: Attestation: I have reviewed the pertinent imaging results. Radiologist's impression: LEFT: TECHNIQUE: Shoulder radiograph 2 views left COMPARISON: None FINDINGS: Bone: No acute fractures or aggressive bone lesions are identified. Moderate diffuse osteopenia is noted. Joint: The glenohumeral joint is unremarkable. 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 Soft tissue: Unremarkable. The visualized hemithorax is unremarkable in appearance. No radiopaque foreign bodies are seen. IMPRESSION: 1. No acute osseous injuries or abnormalities are noted. RIGHT: TECHNIQUE: Shoulder radiograph 2 views right COMPARISON: None FINDINGS: Bone: No acute fractures or aggressive bone lesions are identified. Moderate diffuse osteopenia is noted. Joint: The glenohumeral joint is unremarkable. 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 Soft tissue: Unremarkable. The visualized hemithorax is unremarkable in appearance. No radiopaque foreign bodies are seen. IMPRESSION: 1. No acute osseous injuries or abnormalities are noted. Discharge Plan Discharge Disposition: [facility] Date of Admission: 02/01/24 16:09 Attending Provider on Discharge: Michelle Henson Primary Care Provider: RIMMA KINCAID Discharge Medications: Continued tamsulosin 0.4 mg capsule 0.4 mg PO DAILY@1300 memantine 10 mg tablet 10 mg PO BID venlafaxine 37.5 mg capsule,extended release 24hr 37.5 mg PO DAILY donepezil 10 mg tablet 10 mg PO HS acetaminophen 500 mg capsule 1,000 mg PO TID cetirizine 10 mg tablet 10 mg PO DAILY melatonin 3 mg tablet 3 mg PO HS potassium citrate 99 mg capsule 99 mg PO BID tramadol 50 mg tablet 25 - 50 mg PO TID PRN sennosides [Patti-jose] 8.6 mg tablet 8.6 mg PO HS PRN cholecalciferol (vitamin D3) 50 mcg (2,000 unit) capsule 50 mcg PO DAILY Discharge Orders: Discharge Order (Routine); Ordered 02/03/24 Ordered By: Michelle Henson Activity Level: No Restrictions and Other Discharge Diet: Regular and Other Follow Up Appointments: RIMMA KINCAID DO [Primary Care Provider] - Forms: [facility] Info Instructions Admit to: SNF Discharge Potential: Fair Length of Stay: <30 days Can use facility standing orders?: Yes Code Status: DNR/DNI TEDs: N/A Rehab Potential: Fair Therapy: Physical Therapy and Occupational Therapy Therapy Orders: Evaluate and Treat Oxygen: No Urinary Catheter: No Orders are good >30 days: No Signature: HONG Serrato, PA-[facility] Hospitalist
[2024-02-03] MEDS: ACETAMINOPHEN 500 MG TABLET 1000 MG PO (09:49)
[2024-02-03] MEDS: MEMANTINE HCL 10 MG TABLET PO (09:50)
[2024-02-03] MEDS: CETIRIZINE HCL 10 MG TABLET PO (09:50)
[2024-02-03] MEDS: VENLAFAXINE HCL ER 37.5 MG CAPSULE PO (09:56)
== END 2024-02-03 09:50 | DRG 56 ==
LOC: ED 08:23 → MEDSURG 09:39
PROVIDERS: Admitting Provider Student in an Organized Health Care Education/Training Program; Emergency Provider Internal Medicine; PCP Student in an Organized Health Care Education/Training Program; Visit Provider Family Medicine
DX: G30.8 Other Alzheimer's disease (principal); I62.03 Nontraumatic chronic subdural hemorrhage; N39.0 Urinary tract infection, site not specified; F02.811 Dementia in other diseases classified elsewhere, unspecified severity, with agitation; N17.9 Acute kidney failure, unspecified; R00.1 Bradycardia, unspecified; I10 Essential (primary) hypertension; F32.A Depression, unspecified; N40.0 Benign prostatic hyperplasia without lower urinary tract symptoms; K86.9 Disease of pancreas, unspecified; K21.9 Gastro-esophageal reflux disease without esophagitis; Z91.81 History of falling
CPT/HCPCS: 36415; 70450; 71260; 72125; 73030; 74177; 80048; 80053; 81001; 81003; 82565; 84484; 85025; 85027; 87086; 93005; 97161; 97165; 97535; 99283; 99284; 99285; G0378; A9270; J7030; Q9967